=== PATIENT | male | born 1970 | race Caucasian/White ===

== ENCOUNTER 2016-09-18 14:08 | Emergency (ER) | payer OTHER ==
[2016-09-18 14:15] VITALS: BP 144/84
[2016-09-18 16:48] LABS: Hematocrit 46 % (42-52); Hemoglobin 15.4 g/dl (14.0-18.0); Mean Corpuscular HGB Conc 34 g/dl (31-36); Mean Corpuscular Hemoglobin 31 pg (27-31); Mean Corpuscular Volume 92 fL (80-94); Mean Platelet Volume 7 um3 (7.4-10.4); Red Blood Count 4.98 10^6/ul (4.0-5.4); Red Cell Distribution Width 14 % (10.5-15); White Blood Count 8.8 10^3/ul (3.5-10.8)
[2016-09-18 17:04] LABS: BUN/Creatinine Ratio 11.9 (8-20); Blood Urea Nitrogen 12 mg/dL (6-24); C Reactive Protein 15.58 mg/L (< 5.00); CO2 Carbon Dioxide 26 mmol/L (22-32); Calcium 10.7 mg/dL (8.6-10.3); Chloride 103 mmol/L (101-111); EGFR African American 102.7 (>60); EGFR Non-African American 79.9 (>60); Glucose 86 mg/dL (70-100); Sodium 135 mmol/L (133-145)
--- NOTE | 2016-09-18 17:57 | ED ---
ED Suture/Wound Check - HPI Summary HPI Summary: 46 y/o male comes to the ED with complaints of drainage from a prior wound after a brain biopsy that has been going on for the past week and a half. Patient brought in past few days worth of gauze pads he has been using to cover the wound. It is a dime size amount with today's being even smaller amount. It is clear with a greenish/yellow tint to it, not copious. Denies any blood. Is worried it is CSF. He states the brain biopsy was in May of 2016 and he did not have any complications with it until now. Denies any other complaints at this time, no fever/chills. He has metastatic lung cancer that spread to his brain. Has an appointment with neurosurgeon in the next month. He called their office and they told him to come to ED to make sure it did not have to be re- sutured. - History Of Current Complaint Chief Complaint: EDHeadInjury Stated Complaint: HEAD PAIN Time Seen by Provider: 09/18/16 15:19 Hx Obtained From: Patient Onset/Duration: Sudden Onset Severity: Mild Pain Intensity: 0 Pain Scale Used: 0-10 Numeric - Allergies/Home Medications Allergies/Adverse Reactions: Allergies Allergy/AdvReac Type Severity Reaction Status Date / Time Penicillins Allergy STRONG Verified 07/15/16 14:11 FAMILY HX OF REACTIONS TO PCN PMH/Surg Hx/FS Hx/Imm Hx Endocrine/Hematology History: Denies: Hx Diabetes, Hx Systemic Lupus Erythematosus Cardiovascular History: Denies: Hx Hypertension, Hx Pacemaker/ICD History: Denies: Hx Dialysis, Hx Renal Disease Musculoskeletal History: Denies: Hx Rheumatoid Arthritis Sensory History: Denies: Hx Hearing Aid Psychiatric History: Denies: Hx Panic Disorder - Cancer History Cancer Type, Location and Year: Metastatic lung CA Hx Chemotherapy: No - Surgical History Surgery Procedure, Year, and Place: ARM/THIGH SKIN BIOPSY 2016. Brain Biopsy Infectious Disease History: No Infectious Disease History: Denies: Traveled Outside the [place] in Last 30 Days - Social History Alcohol Use: None Substance Use Type: Reports: None Smoking Status (MU): Never Smoked Tobacco Review of Systems Constitutional: Negative Eyes: Negative ENT: Negative Cardiovascular: Negative Respiratory: Negative Gastrointestinal: Negative Genitourinary: Negative Musculoskeletal: Negative Positive: Other - drainage from old wound Neurological: Negative Psychological: Normal All Other Systems Reviewed And Are Negative: Yes Physical Exam Vital Signs On Initial Exam: Initial Vitals Temp Pulse Resp BP Pulse Ox 98.2 F 56 18 144/84 100 09/18/16 14:11 09/18/16 14:11 09/18/16 14:11 09/18/16 14:11 09/18/16 14:11 Diagnostics - Vital Signs Vital Signs Temp Pulse Resp BP Pulse Ox 09/18/16 14:11 98.2 F 56 18 144/84 100 - Laboratory Lab Results: Lab Results 09/18/16 09/18/16 Range/Units 16:35 16:35 WBC 8.8 (3.5-10.8) 10^3/ul RBC 4.98 (4.0-5.4) 10^6/ul Hgb 15.4 (14.0-18.0) g/dl Hct 46 (42-52) % MCV 92 (80-94) fL MCH 31 (27-31) pg MCHC 34 (31-36) g/dl RDW 14 (10.5-15) % Plt Count 202 (150-450) 10^3/ul MPV 7 L (7.4-10.4) um3 ESR Pending Sodium 135 (133-145) mmol/L Potassium TNP Chloride 103 (101-111) mmol/L Carbon Dioxide 26 (22-32) mmol/L Anion Gap TNP BUN 12 (6-24) mg/dL Creatinine 1.01 (0.67-1.17) mg/dL Est GFR ( Amer) 102.7 (>60) Est GFR (Non-Af Amer) 79.9 (>60) BUN/Creatinine Ratio 11.9 (8-20) Glucose 86 (70-100) mg/dL Calcium 10.7 H (8.6-10.3) mg/dL C-Reactive Protein 15.58 H (< 5.00) mg/L Result Diagrams: 09/18/16 16:35 09/18/16 16:35 Lab Statement: Any lab studies that have been ordered have been reviewed, and results considered in the medical decision making process. Course/Dx - Course Course Of Treatment: scar was well-approximated, healed nicely and no signs of dehiscence. No signs of infection and not actively draining. a small needle- sized opening was visualized- appears drainage may be coming from there. However due to biopsy being in May and nothing to be sutured at this time patient will be instructed to follow up with his neurosurgeon if symptoms persist. told to continue using neosporin and covering the area as needed with gauze. also due to otitis externa bilaterally will be treated for that. states he has otitis externa and media often. - Differential Diagnoses Differential Diagnoses: Dehiscence, Healing Wound - Clinical Impression Provider Diagnoses: Encounter for post surgical wound check, Wound drainage, Healing wound, Otitis externa of both ears - Physician Notifications Discussed Care Of Patient With: Dr Lanier Discharge - Discharge Plan Condition: Stable Disposition: HOME Prescriptions: Neomyc/Polym/HC 1% OTIC SUSP* [Cortisporin Otic Susp 1%*] 4 drop BOTH EARS QID # 1 btl Patient Education Materials: Wound Dehiscence (ED), Otitis Externa (ED) Referrals: Boaz Pruitt MD [Primary Care Provider] - Additional Instructions: Continue using Neosporin and Gauze pads on the area as symptoms persist. Follow- up with your neurosurgeon to further be evaluated. Use prescribed ear drops in both ears for the next 7 days. If symptoms worsen and drainage increases or wound appears to be , headaches, ear pain, fluid coming out of your ears, changes in vision please seek medical attention promptly.
[2016-09-18 19:21] LABS: Erythrocyte Sed Rate 35 mm/Hr (0-14)
== END 2016-09-18 18:30 | disposition home or self-care (01) ==
LOC: ED 14:08
DX: H60.93 Unspecified otitis externa, bilateral (principal); T14.8 Other injury of unspecified body region; X58.XXXA Exposure to other specified factors, initial encounter; Y93.9 Activity, unspecified; Y92.9 Unspecified place or not applicable; Y99.9 Unspecified external cause status
CPT/HCPCS: 36415; 80048; 85027; 85652; 86140; 99282

== ENCOUNTER 2018-04-26 15:44 | Emergency (ER) | payer OTHER ==
[2018-04-26 20:42] LABS: ABS Basophils 0.1 10^3/ul (0-0.2); ABS Eosinophils 0.3 10^3/ul (0-0.6); ABS Lymphocytes 1.7 10^3/ul (1.0-4.8); ABS Monocytes 0.6 10^3/ul (0-0.8); ABS Nucleated RBC 0 10^3/ul; Eosinophil % 2.8 % (0-6); Hematocrit 38 % (42-52); Hemoglobin 12.8 g/dl (14.0-18.0); Lymphocyte % 17.4 % (25-47); Mean Corpuscular HGB Conc 34 g/dl (31-36); Mean Corpuscular Hemoglobin 32 pg (27-31); Mean Corpuscular Volume 93 fL (80-94); Mean Platelet Volume 6.2 um3 (7.4-10.4); Nucleated Red Blood Cells % 0.1; Platelet Count 164 10^3/ul (150-450); Red Blood Count 4.07 10^6/ul (4.00-5.40); Red Cell Distribution Width 16 % (10.5-15); White Blood Count 9.7 10^3/ul (3.5-10.8)
[2018-04-26 21:03] LABS: EGFR Non-African American 102.1 (>60)
[2018-04-26] MEDS ORDERED: Iohexol 300* (CONTRAST) 10 ML SDV IV ONE (21:14)
--- NOTE | 2018-04-26 23:23 | RAD ---
EXAM: CT Neck With Intravenous Contrast CLINICAL HISTORY: 48 years old, male; Signs and symptoms; Dysphagia / difficulty swallowing; Additional info: Dysphagia, HX met lung ca non compliant with chemo TECHNIQUE: Axial computed tomography images of the neck with intravenous contrast. All CT scans at this facility use at least one of these dose optimization techniques: automated exposure control; mA and/or kV adjustment per patient size (includes targeted exams where dose is matched to clinical indication); or iterative reconstruction. Coronal and sagittal reformatted images were created and reviewed. CONTRAST: 50 mL of OMNIPAQUE 300 administered intravenously. COMPARISON: NECK W CT SOFT TISSUE NECK W 11/22/2017 12:46 PM FINDINGS: Oropharynx: Unremarkable. No significant tonsillar enlargement. No peritonsillar abscess. Hypopharynx: Unremarkable. Larynx: Unremarkable. Normal epiglottis. Trachea: Unremarkable. Retropharyngeal space: Unremarkable. Submandibular/parotid glands: Unremarkable. Glands are normal in size. Thyroid: Unremarkable. No enlarged or calcified nodules. Bones/joints: No acute fracture. Soft tissues: Unremarkable. Vasculature: No acute findings. Lymph nodes: Unremarkable. No lymphadenopathy. Esophagus: There is mild wall thickening of the mid esophagus. Lung apices: Unremarkable as visualized. IMPRESSION: Mild mid esophageal wall thickening. Etiology can be infectious/inflammatory/post chemotherapy changes.
--- NOTE | 2018-04-27 00:14 | ED ---
Throat Pain/Nasal Congestion - HPI Summary HPI Summary: Patient with history of lung cancer with metastases to brain complains of trouble swallowing 4 months. Patient feels there are "flesh tubes" running around his neck, and that food spills out of his mouth at night. Patient also states he stopped his chemotherapy treatments for months ago in order to go to [facility], and ran out of his usual meds 1 week ago. Patient states he does not have number of his doctors in order to refill meds. Denies any other pain or symptoms including fever, cough, CP, SOB, N/V/D, abdominal pain, change in urine, change in BM. Recent chest abdomen and pelvis CT and brain MRI showed cancer to be stable. Patient has oncologist, psychiatrist and primary care. - History of Current Complaint Chief Complaint: EDThroatPain Time Seen by Provider: 04/26/18 20:00 Hx Obtained From: Patient, Family/Guest Request Runner Onset/Duration: Gradual Onset, Lasting Weeks Severity: Mild Associated Signs And Symptoms: Positive: Dysphagia Cough: None - Allergies/Home Medications Allergies/Adverse Reactions: Allergies Allergy/AdvReac Type Severity Reaction Status Date / Time No Known Allergies Allergy Verified 04/26/18 20:10 PMH/Surg Hx/FS Hx/Imm Hx Endocrine/Hematology History: Denies: Hx Diabetes, Hx Systemic Lupus Erythematosus Cardiovascular History: Reports: Hx Hypertension Denies: Hx Pacemaker/ICD History: Denies: Hx Dialysis, Hx Renal Disease Musculoskeletal History: Denies: Hx Rheumatoid Arthritis Sensory History: Denies: Hx Hearing Aid Psychiatric History: Reports: Hx Panic Disorder - AGORAPHOBIA - Cancer History Cancer Type, Location and Year: Metastatic lung CA Hx Chemotherapy: Yes Hx Radiation Therapy: Yes Hx Palliative Cancer Treatment: No - Surgical History Surgery Procedure, Year, and Place: ARM/THIGH SKIN BIOPSY 2016. Brain Biopsy . THROAT BIOPSY Infectious Disease History: No Infectious Disease History: Denies: Traveled Outside the [place] in Last 30 Days - Social History Alcohol Use: Rare Substance Use Type: Reports: None Smoking Status (MU): Current Some Day Smoker Review of Systems Constitutional: Negative Eyes: Negative Positive: Sore Throat Cardiovascular: Negative Respiratory: Negative Gastrointestinal: Negative Genitourinary: Negative Musculoskeletal: Negative Skin: Negative Neurological: Negative Psychological: Normal All Other Systems Reviewed And Are Negative: Yes Physical Exam - Summary Physical Exam Summary: Patient speaking in full sentences, no work of breathing. Oropharyngeal exam normal. Patient refers to flush tubes around his neck that he feels are visible , but are not visible to this provider. Lung sounds clear to auscultation bilaterally. Patient tolerating saliva. Triage Information Reviewed: Yes Vital Signs On Initial Exam: Initial Vitals Temp Pulse Resp BP Pulse Ox 97 F 69 17 112/44 98 04/26/18 16:17 04/26/18 16:17 04/26/18 16:17 04/26/18 16:17 04/26/18 16:17 Vital Signs Reviewed: Yes Appearance: Positive: Well-Appearing Skin: Positive: Warm Head/Face: Positive: Normal Head/Face Inspection Eyes: Positive: Normal ENT: Positive: Normal ENT inspection Neck: Positive: Supple Respiratory/Lung Sounds: Positive: Clear to Auscultation Cardiovascular: Positive: Normal Abdomen Description: Positive: Nontender Musculoskeletal: Positive: Normal Neurological: Positive: Normal Psychiatric: Positive: Normal AVPU Assessment: Alert - Sami Coma Scale Best Eye Response: 4 - Spontaneous Best Motor Response: 6 - Obeys Commands Best Verbal Response: 5 - Oriented Coma Scale Total: 15 Diagnostics - Vital Signs Vital Signs Temp Pulse Resp BP Pulse Ox 04/26/18 19:14 97.7 F 60 22 107/95 99 04/26/18 16:17 97 F 69 17 112/44 98 - Laboratory Lab Results: Lab Results 04/26/18 04/26/18 04/26/18 Range/Units 20:33 20:33 20:33 WBC 9.7 (3.5-10.8) 10^3/ul RBC 4.07 (4.00-5.40) 10^6/ul Hgb 12.8 L (14.0-18.0) g/dl Hct 38 L (42-52) % MCV 93 (80-94) fL MCH 32 H (27-31) pg MCHC 34 (31-36) g/dl RDW 16 H (10.5-15) % Plt Count 164 (150-450) 10^3/ul MPV 6.2 L (7.4-10.4) um3 Neut % (Auto) 72.5 (38-83) % Lymph % (Auto) 17.4 L (25-47) % [place] % (Auto) 6.3 (0-7) % Eos % (Auto) 2.8 (0-6) % Baso % (Auto) 1.0 (0-2) % Absolute Neuts (auto) 7.0 (1.5-7.7) 10^3/ul Absolute Lymphs (auto) 1.7 (1.0-4.8) 10^3/ul Absolute Monos (auto) 0.6 (0-0.8) 10^3/ul Absolute Eos (auto) 0.3 (0-0.6) 10^3/ul Absolute Basos (auto) 0.1 (0-0.2) 10^3/ul Absolute Nucleated RBC 0 10^3/ul Nucleated RBC % 0.1 Sodium 136 (135-145) mmol/L Potassium 4.6 (3.5-5.0) mmol/L Chloride 101 (101-111) mmol/L Carbon Dioxide 28 (22-32) mmol/L Anion Gap 7 (2-11) mmol/L BUN 10 (6-24) mg/dL Creatinine 0.81 (0.67-1.17) mg/dL Est GFR ( Amer) 123.6 (>60) Est GFR (Non-Af Amer) 102.1 (>60) BUN/Creatinine Ratio 12.3 (8-20) Glucose 90 (70-100) mg/dL Lactic Acid 2.0 (0.5-2.0) mmol/L Calcium 9.4 (8.6-10.3) mg/dL Total Bilirubin 0.50 (0.2-1.0) mg/dL AST 19 (13-39) U/L ALT 32 (7-52) U/L Alkaline Phosphatase 53 (34-104) U/L C-Reactive Protein 77.79 H (<8.01) mg/L Total Protein 6.5 (6.4-8.9) g/dL Albumin 3.7 (3.2-5.2) g/dL Globulin 2.8 (2-4) g/dL Albumin/Globulin Ratio 1.3 (1-3) Result Diagrams: 04/26/18 20:33 04/26/18 20:33 Lab Statement: Any lab studies that have been ordered have been reviewed, and results considered in the medical decision making process. - CT neck soft tissue CT Interpretation: No Acute Changes CT Interpretation Completed By: Radiologist NANDA Course/Dx - Course Course Of Treatment: Patient with history of lung cancer with metastases to brain complains of trouble swallowing 4 months. Patient feels there are "flesh tubes" running around his neck, and that food spills out of his mouth at night. Patient also states he stopped his chemotherapy treatments for months ago in order to go to [facility], and ran out of his usual meds 1 week ago. Patient states he does not have number of his doctors in order to refill meds. Denies any other pain or symptoms including fever, cough, CP, SOB, N/V/D, abdominal pain, change in urine, change in BM. Recent chest abdomen and pelvis CT and brain MRI showed cancer to be stable. Patient has oncologist, psychiatrist and primary care. Physical exam:Patient speaking in full sentences, no work of breathing. Oropharyngeal exam normal. Patient refers to flush tubes around his neck that he feels are visible, but are not visible to this provider. Lung sounds clear to auscultation bilaterally. Patient tolerating saliva. Vital signs within normal limits. CT soft tissue neck negative for abnormalities. Patient advised of results refused to believe him. Social work consult ordered to evaluate patient's living conditions as he lives alone. - Diagnoses Provider Diagnoses: Esophageal abnormality Discharge - Sign-Out/Discharge Documenting (check all that apply): Patient Departure - Discharge Plan Condition: Stable Disposition: HOME Patient Education Materials: Dysphagia (ED) Referrals: Boaz Pruitt MD [Primary Care Provider] - Additional Instructions: Follow-up with primary care. Return to the ED for any new or worsening symptoms - Billing Disposition and Condition Condition: STABLE Disposition: Home
[2018-04-27 00:31] VITALS: BP 103/67
== END 2018-04-27 00:30 | disposition home or self-care (01) ==
LOC: ED 15:44
DX: J02.9 Acute pharyngitis, unspecified (principal); C34.90 Malignant neoplasm of unspecified part of unspecified bronchus or lung; C79.31 Secondary malignant neoplasm of brain; Z72.0 Tobacco use; Z92.21 Personal history of antineoplastic chemotherapy
CPT/HCPCS: 36415; 70491; 80053; 83605; 85025; 86140; 99283; Q9967

== ENCOUNTER → 2018-07-29 13:16 | Emergency (ER) | payer OTHER ==
[2018-07-29 13:46] LABS: ABS Basophils 0.1 10^3/ul (0-0.2); ABS Eosinophils 0.3 10^3/ul (0-0.6); ABS Lymphocytes 1.5 10^3/ul (1.0-4.8); ABS Monocytes 0.4 10^3/ul (0-0.8); ABS Neutrophils 5.7 10^3/ul (1.5-7.7); ABS Nucleated RBC 0 10^3/ul; Eosinophil % 3.5 %; Hematocrit 40 % (42-52); Hemoglobin 13.4 g/dl (14.0-18.0); Lymphocyte % 19.1 %; Mean Corpuscular HGB Conc 33 g/dl (31-36); Mean Corpuscular Hemoglobin 29 pg (27-31); Mean Corpuscular Volume 86 fL (80-94); Mean Platelet Volume 6.5 fL (7.4-10.4); Nucleated Red Blood Cells % 0; Platelet Count 217 10^3/ul (150-450); Red Blood Count 4.69 10^6/ul (4.00-5.40); Red Cell Distribution Width 15 % (10.5-15); White Blood Count 7.9 10^3/ul (3.5-10.8)
[2018-07-29 14:07] LABS: Albumin 3.8 g/dL (3.2-5.2); Albumin/Globulin Ratio 1.2 (1-3); BUN/Creatinine Ratio 13.6 (8-20); C Reactive Protein 17.96 mg/L (<8.01); Calcium 9.7 mg/dL (8.6-10.3); EGFR Non-African American 92.8 (>60); Globulin 3.2 g/dL (2-4); Potassium 4.8 mmol/L (3.5-5.0); Total Bilirubin 0.3 mg/dL (0.2-1.0)
[2018-07-29 16:38] VITALS: BP 110/60
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
== END | disposition home or self-care (01) ==
LOC: ED 13:16
DX: F43.0 Acute stress reaction (principal); Z72.0 Tobacco use
CPT/HCPCS: 36415; 80053; 83735; 85025; 86140; 99284

== ENCOUNTER 2018-08-02 10:02 | Emergency (ER) | payer OTHER ==
[2018-08-02 11:34] LABS: ABS Basophils 0.1 10^3/ul (0-0.2); ABS Eosinophils 0.1 10^3/ul (0-0.6); ABS Monocytes 0.4 10^3/ul (0-0.8); ABS Neutrophils 6.4 10^3/ul (1.5-7.7); ABS Nucleated RBC 0 10^3/ul; Eosinophil % 1.4 %; Hematocrit 41 % (42-52); Hemoglobin 13.4 g/dl (14.0-18.0); Lymphocyte % 12.8 %; Mean Corpuscular HGB Conc 33 g/dl (31-36); Mean Corpuscular Hemoglobin 28 pg (27-31); Mean Corpuscular Volume 85 fL (80-94); Mean Platelet Volume 6.5 fL (7.4-10.4); Nucleated Red Blood Cells % 0.1; Platelet Count 264 10^3/ul (150-450); Red Blood Count 4.75 10^6/ul (4.00-5.40); Red Cell Distribution Width 15 % (10.5-15)
[2018-08-02 11:50] LABS: Albumin/Globulin Ratio 1.1 (1-3); BUN/Creatinine Ratio 21.6 (8-20); Calcium 9.8 mg/dL (8.6-10.3); EGFR Non-African American 92.8 (>60); Globulin 3.5 g/dL (2-4); Potassium 4.2 mmol/L (3.5-5.0); Total Bilirubin 0.5 mg/dL (0.2-1.0); Total Protein 7.5 g/dL (6.4-8.9)
[2018-08-02] MEDS ORDERED: Iohexol 300* (CONTRAST) 10 ML SDV IV ONE (12:01)
[2018-08-02] MEDS ORDERED: Ibuprofen TAB* 600 MG PO ONE (12:46)
--- NOTE | 2018-08-02 12:54 | ED ---
Throat Pain/Nasal Congestion - HPI Summary HPI Summary: Patient is a 48-year-old male with a history of brain CA presenting to the ED for the second time in one week. He offers a different complaint on this visit. Today he states he has had a one-day history of difficulty swallowing, difficulty handling his secretions, and dysphagia. He states he may have a malignancy or metastases to the neck and is concerned for these masses. Denies any other symptoms or concerns at this time. Denies any fevers, sweats, chills. Denies any masses otherwise. He denies any sore throat. - History of Current Complaint Chief Complaint: EDThroatPain Time Seen by Provider: 08/02/18 10:38 Hx Obtained From: Patient Onset/Duration: Sudden Onset Severity: Moderate Associated Signs And Symptoms: Positive: Negative, Dysphagia - Epiglottits Risk Factors Epiglottis Risk Factors: Negative - Allergies/Home Medications Allergies/Adverse Reactions: Allergies Allergy/AdvReac Type Severity Reaction Status Date / Time No Known Allergies Allergy Verified 08/02/18 11:31 Home Medications: Home Medications Levothyroxine TAB* [Synthroid TAB*] 125 mcg PO DAILY 08/02/18 [History Confirmed 08/02/18] PMH/Surg Hx/FS Hx/Imm Hx Previously Healthy: Yes Endocrine/Hematology History: Denies: Hx Diabetes, Hx Systemic Lupus Erythematosus Cardiovascular History: Reports: Hx Hypertension Denies: Hx Pacemaker/ICD History: Denies: Hx Dialysis, Hx Renal Disease Musculoskeletal History: Denies: Hx Rheumatoid Arthritis Sensory History: Denies: Hx Hearing Aid Psychiatric History: Denies: Hx Panic Disorder - Cancer History Cancer Type, Location and Year: Metastatic lung CA Hx Chemotherapy: Yes Hx Radiation Therapy: Yes Hx Palliative Cancer Treatment: No - Surgical History Surgery Procedure, Year, and Place: ARM/THIGH SKIN BIOPSY 2016. Brain Biopsy . THROAT BIOPSY Infectious Disease History: No Infectious Disease History: Denies: Traveled Outside the [place] in Last 30 Days - Social History Occupation: Unemployed Lives: Alone Alcohol Use: Rare Hx Substance Use: No Substance Use Type: Reports: None Hx Tobacco Use: Yes Smoking Status (MU): Current Some Day Smoker Review of Systems Constitutional: Negative Negative: Fever, Chills, Fatigue, Skin Diaphoresis Positive: Other - Oneck pain bilaterally. Negative: Epistaxis, Dental Pain, Sore Throat Negative: Palpitations, Chest Pain Negative: Shortness Of Breath, Cough Negative: Abdominal Pain, Vomiting, Diarrhea, Nausea Positive: see HPI Musculoskeletal: Negative Skin: Negative All Other Systems Reviewed And Are Negative: Yes Physical Exam Triage Information Reviewed: Yes Vital Signs On Initial Exam: Initial Vitals Temp Pulse Resp BP Pulse Ox 97.8 F 59 18 119/71 100 08/02/18 10:11 08/02/18 10:11 08/02/18 10:11 08/02/18 10:11 08/02/18 10:11 Vital Signs Reviewed: Yes Appearance: Positive: Well-Appearing, Well-Nourished Skin: Positive: Warm, Skin Color Reflects Adequate Perfusion Head/Face: Positive: Normal Head/Face Inspection Eyes: Positive: EOMI, SARWAT, Conjunctiva Clear Dental: Positive: Other - no appreciable masses Respiratory/Lung Sounds: Positive: Clear to Auscultation, Breath Sounds Present Cardiovascular: Positive: RRR, Pulses are Symmetrical in both Upper and Lower Extremities Musculoskeletal: Positive: Normal, Strength/ROM Intact Neurological: Positive: Sensory/Motor Intact, Alert, Oriented to Person Place, Time, Speech Normal Psychiatric: Positive: Normal, Affect/Mood Appropriate Diagnostics - Vital Signs Vital Signs Temp Pulse Resp BP Pulse Ox 08/02/18 10:11 97.8 F 59 18 119/71 100 - Laboratory Lab Results: Lab Results 08/02/18 08/02/18 08/02/18 Range/Units 11:24 11:24 11:24 WBC 8.0 (3.5-10.8) 10^3/ul RBC 4.75 (4.00-5.40) 10^6/ul Hgb 13.4 L (14.0-18.0) g/dl Hct 41 L (42-52) % MCV 85 (80-94) fL MCH 28 (27-31) pg MCHC 33 (31-36) g/dl RDW 15 (10.5-15) % Plt Count 264 (150-450) 10^3/ul MPV 6.5 L (7.4-10.4) fL Neut % (Auto) 80.6 % Lymph % (Auto) 12.8 % [facility] % (Auto) 4.4 % Eos % (Auto) 1.4 % Baso % (Auto) 0.8 % Absolute Neuts (auto) 6.4 (1.5-7.7) 10^3/ul Absolute Lymphs (auto) 1.0 (1.0-4.8) 10^3/ul Absolute Monos (auto) 0.4 (0-0.8) 10^3/ul Absolute Eos (auto) 0.1 (0-0.6) 10^3/ul Absolute Basos (auto) 0.1 (0-0.2) 10^3/ul Absolute Nucleated RBC 0 10^3/ul Nucleated RBC % 0.1 Sodium 135 (135-145) mmol/L Potassium 4.2 (3.5-5.0) mmol/L Chloride 100 L (101-111) mmol/L Carbon Dioxide 22 (22-32) mmol/L Anion Gap 13 H (2-11) mmol/L BUN 19 (6-24) mg/dL Creatinine 0.88 (0.67-1.17) mg/dL Est GFR ( Amer) 112.3 (>60) Est GFR (Non-Af Amer) 92.8 (>60) BUN/Creatinine Ratio 21.6 H (8-20) Glucose 61 L (70-100) mg/dL Lactic Acid 1.2 (0.5-2.0) mmol/L Calcium 9.8 (8.6-10.3) mg/dL Total Bilirubin 0.50 (0.2-1.0) mg/dL AST 24 (13-39) U/L ALT 23 (7-52) U/L Alkaline Phosphatase 78 (34-104) U/L Total Protein 7.5 (6.4-8.9) g/dL Albumin 4.0 (3.2-5.2) g/dL Globulin 3.5 (2-4) g/dL Albumin/Globulin Ratio 1.1 (1-3) Result Diagrams: 08/02/18 11:24 08/02/18 11:24 Lab Statement: Any lab studies that have been ordered have been reviewed, and results considered in the medical decision making process. EENT Course/Dx - Course Course Of Treatment: Labs obtained which are unremarkable. CT shows mild mucosal thickening of the esophagus. There is no lymphadenopathy by size criteria. There is no appreciable obstructing mass. On physical examination, she appears to be in no acute distress. Handling secretions well. And is able to drink water.Discussed results with patient. I for ibuprofen to which he accepts. He will follow up with his PCP. - Diagnoses Provider Diagnoses: Tightness of neck Discharge - Sign-Out/Discharge Documenting (check all that apply): Patient Departure - Discharge Plan Condition: Stable Disposition: HOME Referrals: Boaz Pruitt MD [Primary Care Provider] - Additional Instructions: Please follow up ENT as scheduled - Billing Disposition and Condition Condition: STABLE Disposition: Home
[2018-08-02 12:58] VITALS: BP 115/74
== END 2018-08-02 12:55 | disposition home or self-care (01) ==
LOC: ED 10:02
DX: M54.2 Cervicalgia (principal); Z72.0 Tobacco use; Z85.118 Personal history of other malignant neoplasm of bronchus and lung
CPT/HCPCS: 36415; 70491; 80053; 83605; 85025; 99282; A9270-GY; Q9967

== ENCOUNTER 2018-08-04 12:02 | Inpatient (IN) | payer OTHER ==
[2018-08-04] MEDS ORDERED: Nicotine Inhaler* 10 MG AMP INH PRN (12:18)
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
[2018-08-04] MEDS ORDERED: Mouth Piece, Nicotine* 1 EACH CARTRIDGE INH PRN (12:51)
[2018-08-04 12:52] LABS: ABS Basophils 0.1 10^3/ul (0-0.2); ABS Eosinophils 0.3 10^3/ul (0-0.6); ABS Lymphocytes 1.4 10^3/ul (1.0-4.8); ABS Monocytes 0.4 10^3/ul (0-0.8); ABS Neutrophils 5.2 10^3/ul (1.5-7.7); ABS Nucleated RBC 0 10^3/ul; Eosinophil % 3.7 %; Hematocrit 42 % (42-52); Lymphocyte % 19.3 %; Mean Corpuscular HGB Conc 33 g/dl (31-36); Mean Corpuscular Hemoglobin 29 pg (27-31); Mean Corpuscular Volume 85 fL (80-94); Mean Platelet Volume 6.6 fL (7.4-10.4); Nucleated Red Blood Cells % 0; Platelet Count 283 10^3/ul (150-450); Red Cell Distribution Width 15 % (10.5-15); White Blood Count 7.4 10^3/ul (3.5-10.8)
[2018-08-04 13:10] LABS: ALT 25 U/L (7-52); AST 25 U/L (13-39); Albumin 4.4 g/dL (3.2-5.2); Albumin/Globulin Ratio 1.3 (1-3); Alkaline Phosphatase 72 U/L (34-104); Anion Gap 8 mmol/L (2-11); BUN/Creatinine Ratio 17.8 (8-20); Blood Urea Nitrogen 16 mg/dL (6-24); CO2 Carbon Dioxide 28 mmol/L (22-32); Chloride 103 mmol/L (101-111); EGFR African American 109.4 (>60); EGFR Non-African American 90.4 (>60); Globulin 3.4 g/dL (2-4); Glucose 64 mg/dL (70-100); Potassium 3.6 mmol/L (3.5-5.0); Sodium 139 mmol/L (135-145); Total Protein 7.8 g/dL (6.4-8.9)
[2018-08-04 13:20] LABS: Acetaminophen < 15 mcg/mL; Alcohol < 10 mg/dL (<10); Salicylate < 2.50 mg/dL (<30)
[2018-08-04 13:25] LABS: TSH (Thyroid Stimulating Horm) 9.22 mcIU/mL (0.34-5.60)
[2018-08-04 14:38] LABS: Urine Appearance Cloudy; Urine Bilirubin Negative (Negative); Urine Blood Negative (Negative); Urine Color Amber; Urine Glucose Negative (Negative); Urine Ketones 1+ (Negative); Urine Nitrite Negative (Negative); Urine Protein Negative (Negative); Urine Specific Gravity 1.026 (1.010-1.030); Urine Urobilinogen Positive (Negative)
[2018-08-04 15:07] LABS: Barbiturates Urine Screen None Detected (None Detect); Benzodiazepine Urine Screen Presumptive Positive (None Detect); Urine Cannabinoids Screen None Detected (None Detect)
[2018-08-04 16:12] LABS: Free T4 0.55 ng/dL (0.61-1.12)
[2018-08-04] MEDS ORDERED: Acetaminophen TAB* 325 MG PO PRN (16:47)
[2018-08-04] MEDS ORDERED: Al Hydrox/Mg Hydrox/Simet LIQ* 30 ML UDC PO PRN (16:48)
[2018-08-04] MEDS: clonazePAM TAB(*) 1 MG PO SCH (21:27)
[2018-08-04] MEDS: Sertraline* 100 MG TAB PO SCH (21:28)
[2018-08-05] MEDS: Levothyroxine TAB* 125 MCG TAB PO SCH (07:38)
[2018-08-05] MEDS: Sertraline* 100 MG TAB PO SCH ×2 (10:16→22:06)
[2018-08-05] MEDS: Multivitamins/Minerals TAB PO SCH (10:18)
[2018-08-05] MEDS: clonazePAM TAB(*) 1 MG PO SCH ×3 (10:18→22:05)
[2018-08-05] MEDS: Nicotine PATCH 21 MG/24 HR* PATCH TRANSDERM SCH (15:16)
--- NOTE | 2018-08-05 19:26 | HP ---
HISTORY AND PHYSICAL: ADDENDUM: DIAGNOSES: 1. Psychosis, rule out psychosis related to general medical problem. 2. History of agoraphobia. ASSESSMENT: Rick is a 48-year-old white male who presented to ED via [facility] crisis team due to aggressive behavior at the homeless [facility]. Collateral information indicates that he has been increasingly delusional and aggressive to family members and this is not his usual presentation. He was diagnosed with lung cancer with mets to the brain. He states he finished chemo and radiation and is in remission but this is yet to be verified. PLAN: The patient is admitted to adult behavioral services unit on involuntary status. His code status is full. He is placed on 15-minute checks for safety. We obtained a Swallow consult and a Nutrition consult due to his need for a pureed diet. We will continue outpatient medications and add olanzapine at bedtime. We will coordinate with his oncologist and identify treatment plan and status of cancer. The patient is encouraged to participate in unit programming, individual sessions with staff and psychoeducational groups. Discharge planning will include outpatient providers and family per the patient' s consent. ANIVAL VARGAS NP [id number]/CPS #: [id number] BARB
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
[2018-08-05] MEDS: OLANzapine TAB* 5 MG PO SCH (22:06)
[2018-08-05] MEDS: Nicotine Patch Removal NOTE FOLLOW UP SCH (22:16)
[2018-08-06] MEDS: clonazePAM TAB(*) 1 MG PO SCH ×3 (10:10→20:23)
[2018-08-06] MEDS: Multivitamins/Minerals TAB PO SCH (10:11)
[2018-08-06] MEDS: Levothyroxine TAB* 125 MCG TAB PO SCH (10:11)
[2018-08-06] MEDS: Sertraline* 100 MG TAB PO SCH ×2 (10:11→20:23)
[2018-08-06] MEDS: Nicotine PATCH 21 MG/24 HR* PATCH TRANSDERM SCH (10:12)
[2018-08-06] MEDS: OLANzapine TAB* 5 MG PO SCH (20:23)
[2018-08-06] MEDS: Nicotine Patch Removal NOTE FOLLOW UP SCH (20:25)
[2018-08-07] MEDS: clonazePAM TAB(*) 1 MG PO SCH ×3 (07:00→20:46)
[2018-08-07] MEDS: Levothyroxine TAB* 125 MCG TAB PO SCH (07:00)
[2018-08-07] MEDS: Multivitamins/Minerals TAB PO SCH (07:00)
[2018-08-07] MEDS: Sertraline* 100 MG TAB PO SCH ×2 (07:00→20:47)
[2018-08-07] MEDS: Nicotine PATCH 21 MG/24 HR* PATCH TRANSDERM SCH (07:53)
--- NOTE | 2018-08-07 16:42 | PN ---
Subjective - Subjective Date of Service: 08/07/18 Service Type: 64501 Hosp care 15 min low complexity Subjective: Viry remains to self mostly either laying in bed or sitting. He verbalizes complaints about people misunderstanding him resulting in this hospitalization. He doesn't believe he needs psychotropic meds although he has been compliant. Denies SI/HI or psychosis. Objective - Appearance Appearance: Healthy Appearing Dysmorphic Features: No Hygiene: Normal Grooming: Fairly Well Kept - Behavior Psychomotor Activities: Normal Exhibits Abnormal Movement: No - Attitude and Relatedness Attitude and Relatedness: Cooperative Eye Contact: Poor - Speech Quality: Unpressured Latencies: Normal Quantity: Appropriate - Mood Patient's Decription of Mood: "Upset" - Affect Observed Affect: Constricted Affect Consistent with: Dysphoria - Thought Process Patient's Thought Process: Coherent, Goal Directed Thought Content: No Passive Wish, No Suicidal Planning, No Homicidal Ideation, No Paranoid Ideation - Sensorium Experiencing Hallucinations: No, Sensorium is Clear Type of Hallucinations: Visual: No, Auditory: No, Command: No - Level of Consciousness Level of Consciousness: Alert Orientation: Yes Intact, Yes Orientated to Time, Yes Orientated to Place, Yes Orientated to Person - Impulse Control Impulse Control: Tenuous - Insight and Judgement Insight and Judgement: Poor - Group Participation Particating in Group Activities: No - Medication Management Medication Management Adherence: Yes Assessment - Assessment Merits Inpatient Hospitalization: For Immediate Safety, For Stabilization, For Ongoing Evaluation, For Discharge Planning Plan - Plan Treatment Plan: Name: VIRY FRAUSTO JR Birthdate: 1970 [id number] Continued Medication Management: Continue Outpt Medication Medications: Current Medications Acetaminophen (Tylenol Tab*) 650 mg PO Q4H PRN PRN Reason: PAIN; OR TEMP >101 Al Hydrox/Mg Hydrox/Simethicone (Maalox Plus*) 30 ml PO Q4H PRN PRN Reason: INDIGESTION Clonazepam (Klonopin Tab(*)) 1 mg PO TID [facility] Last Admin: 08/07/18 14:02 Dose: 1 mg Device (Nicotine Mouth Piece*) 1 each INH ONCE PRN PRN Reason: CRAVING Levothyroxine Sodium (Synthroid Tab*) 125 mcg PO DAILY@0600 [facility] Last Admin: 08/07/18 07:00 Dose: 125 mcg Multivitamins/Minerals (Theragran/Minerals Tab*) 1 tab PO DAILY [facility] Last Admin: 08/07/18 07:00 Dose: 1 tab Nicotine (Nicotine Inhaler*) 10 mg INH Q2H PRN PRN Reason: CRAVING Nicotine (Nicotine Patch 21 Mg/24 Hr*) 1 patch TRANSDERM DAILY [facility] Last Admin: 08/07/18 07:53 Dose: Not Given Olanzapine (Zyprexa Tab*) 5 mg PO BEDTIME [facility] Last Admin: 08/06/18 20:23 Dose: 5 mg Pharmacy Profile Note (Nicotine Patch Removal Note*) 1 note FOLLOW UP 2100 [facility] Last Admin: 08/06/18 20:25 Dose: Not Given Sertraline HCl (Zoloft*) 100 mg PO BID [facility] Last Admin: 08/07/18 07:00 Dose: 100 mg - Discharge Plan Discharge Plan: Outpatient Follow Up Outpatient Program: [facility]
[2018-08-07] MEDS: OLANzapine TAB* 5 MG PO SCH (20:47)
[2018-08-07] MEDS: Nicotine Patch Removal NOTE FOLLOW UP SCH (20:48)
[2018-08-08] MEDS: Sertraline* 100 MG TAB PO SCH ×2 (07:36→20:45)
[2018-08-08] MEDS: Multivitamins/Minerals TAB PO SCH (07:36)
[2018-08-08] MEDS: Levothyroxine TAB* 125 MCG TAB PO SCH (07:36)
[2018-08-08] MEDS: Nicotine PATCH 21 MG/24 HR* PATCH TRANSDERM SCH (07:37)
[2018-08-08] MEDS: clonazePAM TAB(*) 1 MG PO SCH ×3 (07:37→20:45)
--- NOTE | 2018-08-08 16:15 | PN ---
Subjective - Subjective Date of Service: 08/08/18 Service Type: 33817 Hosp care 25 min moderate complexity Subjective: Patient gave conventional underwriter verbal consent to speak with his oncologist, Dr Minor. Dr Minor reports patient has not been therapy for months and his scans have been stable, as recent as last month. Patient is euthymic upon approach. He reports "I got a lot of sleep, which I needed." He states his mood is "good" today but that he is bored. He continues to give erroneous facts about information from outpatient providers. For example, he states that his APS pillowcase folder has proposed that he goes back to an apartment on [address]. SW is looking into housing needs and clarifying his status at the homeless residential. Objective - Appearance Appearance: Thin Framed Dysmorphic Features: Yes Hygiene: Normal Grooming: Fairly Well Kept - Behavior Psychomotor Activities: Normal Exhibits Abnormal Movement: No - Attitude and Relatedness Attitude and Relatedness: Cooperative Eye Contact: Fair - Speech Quality: Unpressured Latencies: Normal Quantity: Appropriate - Mood Patient's Decription of Mood: "Good" - Affect Observed Affect: Unvariable Affect Consistent with: Dysphoria - Thought Process Patient's Thought Process: Coherent, Impoverished Thought Content: Yes Paranoid Ideation, No Passive Wish, No Suicidal Planning, No Homicidal Ideation - Sensorium Experiencing Hallucinations: No, Sensorium is Clear Type of Hallucinations: Visual: No, Auditory: No, Command: No - Level of Consciousness Level of Consciousness: Alert Orientation: Yes Intact, Yes Orientated to Time, Yes Orientated to Place, Yes Orientated to Person - Impulse Control Impulse Control: Poor - Insight and Judgement Insight and Judgement: Impaired - Group Participation Particating in Group Activities: No - Medication Management Medication Management Adherence: Yes Assessment - Assessment Merits Inpatient Hospitalization: For Immediate Safety, For Stabilization Inpatient DSM-V Dx: F23 Clinical Impression: 48 wm who arrives from [facility] via 9.45 due to threatening and agitated behavior. He is voicing delusions and paranoid ideation. Collateral information indicates sudden onset of above in the recent past. He has a history of lung cancer metastisized to the brain and is currently in remission. Patient merits hospitalization for immediate safety and stabilization. Plan - Plan Treatment Plan: Name: VIRY FRAUSTO Birthdate: 1970 [id number] continue acute intensive psychiatric treatment. may allow comfort room/ computer use but should remain on q15min obs due to fall risk. obtain OT consult to evaluate need for assisted living. discharge planning to include family and outpatient providers. obtain TSH, free t4, fasting lipid and hgba1c in am. Continued Medication Management: Start Medication Medications: Current Medications Acetaminophen (Tylenol Tab*) 650 mg PO Q4H PRN PRN Reason: PAIN; OR TEMP >101 Al Hydrox/Mg Hydrox/Simethicone (Maalox Plus*) 30 ml PO Q4H PRN PRN Reason: INDIGESTION Clonazepam (Klonopin Tab(*)) 1 mg PO TID [facility] Last Admin: 08/08/18 13:22 Dose: 1 mg Device (Nicotine Mouth Piece*) 1 each INH ONCE PRN PRN Reason: CRAVING Levothyroxine Sodium (Synthroid Tab*) 125 mcg PO DAILY@0600 [facility] Last Admin: 08/08/18 07:36 Dose: 125 mcg Multivitamins/Minerals (Theragran/Minerals Tab*) 1 tab PO DAILY [facility] Last Admin: 08/08/18 07:36 Dose: 1 tab Nicotine (Nicotine Inhaler*) 10 mg INH Q2H PRN PRN Reason: CRAVING Nicotine (Nicotine Patch 21 Mg/24 Hr*) 1 patch TRANSDERM DAILY [facility] Last Admin: 08/08/18 07:37 Dose: Not Given Olanzapine (Zyprexa Tab*) 5 mg PO BEDTIME [facility] Last Admin: 08/07/18 20:47 Dose: 5 mg Pharmacy Profile Note (Nicotine Patch Removal Note*) 1 note FOLLOW UP 2100 [facility] Last Admin: 08/07/18 20:48 Dose: Not Given Sertraline HCl (Zoloft*) 100 mg PO BID [facility] Last Admin: 08/08/18 07:36 Dose: 100 mg - Discharge Plan Discharge Plan: Inpatient Hospitalization
[2018-08-08] MEDS: OLANzapine TAB* 5 MG PO SCH (20:45)
[2018-08-08] MEDS: Nicotine Patch Removal NOTE FOLLOW UP SCH (20:47)
[2018-08-09] MEDS: clonazePAM TAB(*) 1 MG PO SCH ×3 (08:44→20:37)
[2018-08-09] MEDS: Multivitamins/Minerals TAB PO SCH (08:44)
[2018-08-09] MEDS: Levothyroxine TAB* 125 MCG TAB PO SCH (08:44)
[2018-08-09] MEDS: Sertraline* 100 MG TAB PO SCH ×2 (08:44→20:37)
[2018-08-09] MEDS: Nicotine PATCH 21 MG/24 HR* PATCH TRANSDERM SCH (08:44)
--- NOTE | 2018-08-09 16:41 | PN ---
Subjective - Subjective Date of Service: 08/09/18 Service Type: [id number] Hosp care 15 min low complexity Subjective: patient is pleasant upon approach. He denies depressed mood or anxiety. He is showing increased participation in unit programming. He continues to voice paranoid delusions about his sister. He has poor insight into need for housing [facility]. Objective - Appearance Appearance: Well Developed/Nourished Dysmorphic Features: Yes Hygiene: Normal Grooming: Fairly Well Kept - Behavior Psychomotor Activities: Normal Exhibits Abnormal Movement: No - Attitude and Relatedness Attitude and Relatedness: Cooperative Eye Contact: Fair - Speech Quality: Unpressured Latencies: Normal Quantity: Terse - Mood Patient's Decription of Mood: "Okay" - Affect Observed Affect: Unvariable Affect Consistent with: Euthymia - Thought Process Patient's Thought Process: Coherent, Loose Associations Thought Content: Yes Paranoid Ideation, No Passive Wish, No Suicidal Planning, No Homicidal Ideation - Sensorium Experiencing Hallucinations: No, Sensorium is Clear Type of Hallucinations: Visual: No, Auditory: No, Command: No - Level of Consciousness Level of Consciousness: Alert Orientation: Yes Intact, Yes Orientated to Time, Yes Orientated to Place, Yes Orientated to Person - Impulse Control Impulse Control: Tenuous - Insight and Judgement Insight and Judgement: Impaired - Group Participation Particating in Group Activities: Yes - Medication Management Medication Management Adherence: Yes Assessment - Assessment Merits Inpatient Hospitalization: For Immediate Safety, For Stabilization Inpatient DSM-V Dx: F23 Clinical Impression: 48 wm who arrives from [facility] via 9.45 due to threatening and agitated behavior. He is voicing delusions and paranoid ideation. Collateral information indicates sudden onset of above in the recent past. He has a history of lung cancer metastisized to the brain and is currently in remission. Patient merits hospitalization for immediate safety and stabilization. Plan - Plan Treatment Plan: Name: VIRY FRAUSTO JR Birthdate: 1970 [id number] continue acute intensive psychiatric treatment. may allow comfort room/ computer use but should remain on q15min obs due to fall risk. obtain OT consult to evaluate need for assisted living. discharge planning to include family and outpatient providers. obtain TSH, free t4, fasting lipid and hgba1c in am. Continued Medication Management: Different Medication Medications: Current Medications Acetaminophen (Tylenol Tab*) 650 mg PO Q4H PRN PRN Reason: PAIN; OR TEMP >101 Al Hydrox/Mg Hydrox/Simethicone (Maalox Plus*) 30 ml PO Q4H PRN PRN Reason: INDIGESTION Clonazepam (Klonopin Tab(*)) 1 mg PO TID [facility] Last Admin: 08/09/18 15:17 Dose: Not Given Device (Nicotine Mouth Piece*) 1 each INH ONCE PRN PRN Reason: CRAVING Levothyroxine Sodium (Synthroid Tab*) 125 mcg PO DAILY@0600 [facility] Last Admin: 08/09/18 08:44 Dose: 125 mcg Multivitamins/Minerals (Theragran/Minerals Tab*) 1 tab PO DAILY [facility] Last Admin: 08/09/18 08:44 Dose: 1 tab Nicotine (Nicotine Inhaler*) 10 mg INH Q2H PRN PRN Reason: CRAVING Nicotine (Nicotine Patch 21 Mg/24 Hr*) 1 patch TRANSDERM DAILY [facility] Last Admin: 08/09/18 08:44 Dose: Not Given Olanzapine (Zyprexa Tab*) 5 mg PO BEDTIME [facility] Last Admin: 08/08/18 20:45 Dose: 5 mg Pharmacy Profile Note (Nicotine Patch Removal Note*) 1 note FOLLOW UP 2100 [facility] Last Admin: 08/08/18 20:47 Dose: Not Given Sertraline HCl (Zoloft*) 100 mg PO BID [facility] Last Admin: 08/09/18 08:44 Dose: 100 mg increase olanzapine to 10mg - Discharge Plan Discharge Plan: Inpatient Hospitalization
[2018-08-09] MEDS: OLANzapine TAB* 10 MG PO SCH (20:37)
[2018-08-09] MEDS: Nicotine Patch Removal NOTE FOLLOW UP SCH (20:38)
[2018-08-10 08:17] LABS: HDL Cholesterol 25.7 mg/dL
[2018-08-10 08:39] LABS: TSH (Thyroid Stimulating Horm) 20.62 mcIU/mL (0.34-5.60)
[2018-08-10 08:41] LABS: Free T4 0.49 ng/dL (0.61-1.12)
[2018-08-10] MEDS: Multivitamins/Minerals TAB PO SCH (08:53)
[2018-08-10] MEDS: Levothyroxine TAB* 125 MCG TAB PO SCH (08:53)
[2018-08-10] MEDS: clonazePAM TAB(*) 1 MG PO SCH ×3 (08:54→22:38)
[2018-08-10] MEDS: Sertraline* 100 MG TAB PO SCH ×2 (08:54→22:38)
[2018-08-10] MEDS: Nicotine PATCH 21 MG/24 HR* PATCH TRANSDERM SCH (08:55)
[2018-08-10] MEDS ORDERED: Levothyroxine TAB* 25 MCG TAB PO ONE (11:07)
--- NOTE | 2018-08-10 11:32 | PN ---
Subjective - Subjective Date of Service: 08/10/18 Service Type: 10945 Hosp care 25 min moderate complexity Subjective: Patient reports sleeping well until he heard police outside of his room. He explains what he heard but is inaudible and mumbled. He reports desire to return to apartment in [facility] at time of discharge. He denies SI/HI/. He endorses paranoid ideation about his sister, Iliana. Objective - Appearance Appearance: Well Developed/Nourished Dysmorphic Features: No Hygiene: Normal Grooming: Fairly Well Kept - Behavior Psychomotor Activities: Normal Exhibits Abnormal Movement: No - Attitude and Relatedness Attitude and Relatedness: Cooperative Eye Contact: Good - Speech Quality: Unpressured Latencies: Normal Quantity: Appropriate - Mood Patient's Decription of Mood: "Good" - Affect Observed Affect: Good Affect Consistent with: Euthymia - Thought Process Patient's Thought Process: Circumstantial Thought Content: Yes Paranoid Ideation, No Passive Wish, No Suicidal Planning, No Homicidal Ideation - Sensorium Experiencing Hallucinations: No, Sensorium is Clear Type of Hallucinations: Visual: Yes, Auditory: Yes, Command: Yes - Level of Consciousness Level of Consciousness: Alert Orientation: Yes Intact, Yes Orientated to Time, Yes Orientated to Place, Yes Orientated to Person - Impulse Control Impulse Control: Tenuous - Insight and Judgement Insight and Judgement: Poor - Group Participation Particating in Group Activities: No - Medication Management Medication Management Adherence: Yes Assessment - Assessment Merits Inpatient Hospitalization: For Immediate Safety, For Stabilization, Pending Safe DC Plan Inpatient DSM-V Dx: F23 Clinical Impression: 48 wm who [facility] 9.45 due to threatening and agitated behavior. He continues to voice delusions and paranoid ideation that are antagonizing bizarre interactions with others. He has a history of lung cancer metastisized to the brain and is currently in remission. Patient merits hospitalization for immediate safety and stabilization. Plan - Plan Treatment Plan: Name: VIRY FRAUSTO JR Birthdate: 1970 [id number] continue acute intensive psychiatric treatment. may allow comfort room/ computer use but should remain on q15min obs due to fall risk. increase levothyroxine to 150mcg/day discharge planning to include family and outpatient providers. Continued Medication Management: Start Medication Medications: Current Medications Acetaminophen (Tylenol Tab*) 650 mg PO Q4H PRN PRN Reason: PAIN; OR TEMP >101 Al Hydrox/Mg Hydrox/Simethicone (Maalox Plus*) 30 ml PO Q4H PRN PRN Reason: INDIGESTION Clonazepam (Klonopin Tab(*)) 1 mg PO TID [facility] Last Admin: 08/10/18 08:54 Dose: 1 mg Device (Nicotine Mouth Piece*) 1 each INH ONCE PRN PRN Reason: CRAVING Levothyroxine Sodium (Synthroid Tab*) 150 mcg PO DAILY@0600 [facility] Multivitamins/Minerals (Theragran/Minerals Tab*) 1 tab PO DAILY [facility] Last Admin: 08/10/18 08:53 Dose: 1 tab Nicotine (Nicotine Inhaler*) 10 mg INH Q2H PRN PRN Reason: CRAVING Nicotine (Nicotine Patch 21 Mg/24 Hr*) 1 patch TRANSDERM DAILY [facility] Last Admin: 08/10/18 08:55 Dose: Not Given Olanzapine (Zyprexa Tab*) 10 mg PO BEDTIME [facility] Last Admin: 08/09/18 20:37 Dose: 10 mg Pharmacy Profile Note (Nicotine Patch Removal Note*) 1 note FOLLOW UP 2100 [facility] Last Admin: 08/09/18 20:38 Dose: Not Given Sertraline HCl (Zoloft*) 100 mg PO BID [facility] Last Admin: 08/10/18 08:54 Dose: 100 mg - Discharge Plan Discharge Plan: Inpatient Hospitalization
[2018-08-10] MEDS: OLANzapine TAB* 10 MG PO SCH (22:40)
[2018-08-10] MEDS: Nicotine Patch Removal NOTE FOLLOW UP SCH (22:54)
[2018-08-11] MEDS: Multivitamins/Minerals TAB PO SCH (09:21)
[2018-08-11] MEDS: Levothyroxine TAB* 150 MCG TAB PO SCH (09:21)
[2018-08-11] MEDS: Sertraline* 100 MG TAB PO SCH ×2 (09:21→21:20)
[2018-08-11] MEDS: clonazePAM TAB(*) 1 MG PO SCH ×3 (09:21→21:20)
[2018-08-11] MEDS: Nicotine PATCH 21 MG/24 HR* PATCH TRANSDERM SCH (09:22)
--- NOTE | 2018-08-11 13:52 | PN ---
Subjective - Subjective Date of Service: 08/11/18 Service Type: [id number] Hosp care 25 min moderate complexity Subjective: Patient reports readiness for discharge. He is informed of availability to return to apartment [facility]. He gives verbal consent for hand sign writer to discuss logistics of discharge planning with his sister, Iliana. Patient continues to endorse delusions that she is controlling the radio, even in the hospital. Patient denies SI/HI/. he is medication compliant and in behavioral control. He mentions wanting to be a part of a cancer survivor group and is given resource information by Recreation Therapist, Tyra Cabral. Filter Press Supervisor left for sister, Iliana at [phone]. Objective - Appearance Appearance: Well Developed/Nourished Dysmorphic Features: No Hygiene: Normal Grooming: Well Kept - Behavior Psychomotor Activities: Normal Exhibits Abnormal Movement: No - Attitude and Relatedness Attitude and Relatedness: Cooperative Eye Contact: Good - Speech Quality: Unpressured Latencies: Normal Quantity: Appropriate - Mood Patient's Decription of Mood: "Good" - Affect Observed Affect: Good Affect Consistent with: Euthymia - Thought Process Patient's Thought Process: Coherent, Goal Directed Thought Content: Yes Paranoid Ideation, No Passive Wish, No Suicidal Planning, No Homicidal Ideation - Sensorium Experiencing Hallucinations: No, Sensorium is Clear Type of Hallucinations: Visual: No, Auditory: Yes, Command: No - Level of Consciousness Level of Consciousness: Alert Orientation: Yes Intact, Yes Orientated to Time, Yes Orientated to Place, Yes Orientated to Person - Impulse Control Impulse Control: Intact - Insight and Judgement Insight and Judgement: Fair - Group Participation Particating in Group Activities: No - Medication Management Medication Management Adherence: Yes Assessment - Assessment Merits Inpatient Hospitalization: For Immediate Safety, Consolidate Improvements , For Discharge Planning, Pending Safe DC Plan Inpatient DSM-V Dx: F23 Clinical Impression: 48 wm who arrives from homeless [facility] via 9.45 due to threatening and agitated behavior. He continues to voice delusions and paranoid ideation that are antagonizing bizarre interactions with others. He has a history of lung cancer metastisized to the brain and is currently in remission. Patient merits hospitalization for immediate safety and stabilization. Plan - Plan Treatment Plan: Name: VIRY FRAUSTO JR Birthdate: 1970 [id number] continue acute intensive psychiatric treatment. may allow comfort room/ computer use but should remain on q15min obs due to fall risk. continue current medications. discharge planning to include family and outpatient providers. Medications: Current Medications Acetaminophen (Tylenol Tab*) 650 mg PO Q4H PRN PRN Reason: PAIN; OR TEMP >101 Al Hydrox/Mg Hydrox/Simethicone (Maalox Plus*) 30 ml PO Q4H PRN PRN Reason: INDIGESTION Clonazepam (Klonopin Tab(*)) 1 mg PO TID [facility] Last Admin: 08/11/18 09:21 Dose: 1 mg Device (Nicotine Mouth Piece*) 1 each INH ONCE PRN PRN Reason: CRAVING Levothyroxine Sodium (Synthroid Tab*) 150 mcg PO DAILY@0600 [facility] Last Admin: 08/11/18 09:21 Dose: 150 mcg Multivitamins/Minerals (Theragran/Minerals Tab*) 1 tab PO DAILY [facility] Last Admin: 08/11/18 09:21 Dose: 1 tab Nicotine (Nicotine Inhaler*) 10 mg INH Q2H PRN PRN Reason: CRAVING Nicotine (Nicotine Patch 21 Mg/24 Hr*) 1 patch TRANSDERM DAILY [facility] Last Admin: 08/11/18 09:22 Dose: Not Given Olanzapine (Zyprexa Tab*) 10 mg PO BEDTIME [facility] Last Admin: 08/10/18 22:40 Dose: 10 mg Pharmacy Profile Note (Nicotine Patch Removal Note*) 1 note FOLLOW UP 2100 [facility] Last Admin: 08/10/18 22:54 Dose: Not Given Sertraline HCl (Zoloft*) 100 mg PO BID [facility] Last Admin: 08/11/18 09:21 Dose: 100 mg - Discharge Plan Discharge Plan: Outpatient Follow Up Outpatient Program: [facility]
[2018-08-11] MEDS: Nicotine Patch Removal NOTE FOLLOW UP SCH (21:17)
[2018-08-11] MEDS: OLANzapine TAB* 10 MG PO SCH (21:20)
[2018-08-12] MEDS: Sertraline* 100 MG TAB PO SCH ×2 (07:10→22:18)
[2018-08-12] MEDS: Levothyroxine TAB* 150 MCG TAB PO SCH (07:10)
[2018-08-12] MEDS: Nicotine PATCH 21 MG/24 HR* PATCH TRANSDERM SCH (07:10)
[2018-08-12] MEDS: Multivitamins/Minerals TAB PO SCH (07:10)
[2018-08-12] MEDS: clonazePAM TAB(*) 1 MG PO SCH ×3 (07:10→22:17)
--- NOTE | 2018-08-12 14:54 | PN ---
Subjective - Subjective Date of Service: 08/12/18 Service Type: 53583 Hosp care 25 min moderate complexity Subjective: Patient reports he isn't willing to let his sister have his keys or have contact with her to assist in coordinating moving belongings back to the apt [facility]. Neurocritical Care Physician phoned sister and Viry agreed to stand nearby; both parties agreed to be placed on speaker phone. Viry minimally engaged then after phone call went on about that she is controlling music heard on the unit and that she murdered his dog. Iliana was polite and short story writer thanked her for her effort and time. Objective - Appearance Appearance: Well Developed/Nourished Dysmorphic Features: No Hygiene: Normal Grooming: Fairly Well Kept - Behavior Psychomotor Activities: Normal Exhibits Abnormal Movement: No - Attitude and Relatedness Attitude and Relatedness: Irritable Eye Contact: Good - Speech Quality: Unpressured Latencies: Normal Quantity: Terse - Mood Patient's Decription of Mood: "Good" - Affect Observed Affect: Expansive Affect Consistent with: Euthymia - Thought Process Patient's Thought Process: Circumstantial Thought Content: Yes Paranoid Ideation, No Passive Wish, No Suicidal Planning, No Homicidal Ideation - Sensorium Experiencing Hallucinations: No, Sensorium is Clear Type of Hallucinations: Visual: No, Auditory: Yes, Command: No - Level of Consciousness Level of Consciousness: Alert Orientation: Yes Intact, Yes Orientated to Time, Yes Orientated to Place, Yes Orientated to Person - Impulse Control Impulse Control: Tenuous - Insight and Judgement Insight and Judgement: Poor - Group Participation Particating in Group Activities: No - Medication Management Medication Management Adherence: Yes Assessment - Assessment Merits Inpatient Hospitalization: For Immediate Safety, For Stabilization, Consolidate Improvements, Pending Safe DC Plan Inpatient DSM-V Dx: F23 Clinical Impression: 48 wm who [facility] via 9.45 due to threatening and agitated behavior. He continues to voice delusions and paranoid ideation that are antagonizing bizarre interactions with others. He has a history of lung cancer metastisized to the brain and is currently in remission. Patient merits hospitalization for immediate safety and stabilization. Plan - Plan Treatment Plan: Name: VIRY FRAUSTO Birthdate: 1970 [id number] continue acute intensive psychiatric treatment. may decrease to q30min. may allow comfort room/computer use increase olanzapine to 15mg qhs. discharge planning to include family and outpatient providers. Continued Medication Management: Start Medication Medications: Current Medications Acetaminophen (Tylenol Tab*) 650 mg PO Q4H PRN PRN Reason: PAIN; OR TEMP >101 Al Hydrox/Mg Hydrox/Simethicone (Maalox Plus*) 30 ml PO Q4H PRN PRN Reason: INDIGESTION Clonazepam (Klonopin Tab(*)) 1 mg PO TID [facility] Last Admin: 08/12/18 14:22 Dose: 1 mg Device (Nicotine Mouth Piece*) 1 each INH ONCE PRN PRN Reason: CRAVING Levothyroxine Sodium (Synthroid Tab*) 150 mcg PO DAILY@0600 [facility] Last Admin: 08/12/18 07:10 Dose: 150 mcg Multivitamins/Minerals (Theragran/Minerals Tab*) 1 tab PO DAILY [facility] Last Admin: 08/12/18 07:10 Dose: 1 tab Nicotine (Nicotine Inhaler*) 10 mg INH Q2H PRN PRN Reason: CRAVING Nicotine (Nicotine Patch 21 Mg/24 Hr*) 1 patch TRANSDERM DAILY [facility] Last Admin: 08/12/18 07:10 Dose: Not Given Olanzapine (Zyprexa Tab*) 10 mg PO BEDTIME [facility] Last Admin: 08/11/18 21:20 Dose: 10 mg Pharmacy Profile Note (Nicotine Patch Removal Note*) 1 note FOLLOW UP 2100 [facility] Last Admin: 08/11/18 21:17 Dose: Not Given Sertraline HCl (Zoloft*) 100 mg PO BID [facility] Last Admin: 08/12/18 07:10 Dose: 100 mg - Discharge Plan Discharge Plan: Inpatient Hospitalization
[2018-08-12] MEDS: Nicotine Patch Removal NOTE FOLLOW UP SCH (22:16)
[2018-08-12] MEDS: OLANzapine TAB* 10 MG PO SCH (22:18)
[2018-08-13] MEDS: Multivitamins/Minerals TAB PO SCH (07:47)
[2018-08-13] MEDS: clonazePAM TAB(*) 1 MG PO SCH ×3 (07:47→21:45)
[2018-08-13] MEDS: Sertraline* 100 MG TAB PO SCH ×2 (07:47→21:45)
[2018-08-13] MEDS: Levothyroxine TAB* 150 MCG TAB PO SCH (07:48)
[2018-08-13] MEDS: Nicotine PATCH 21 MG/24 HR* PATCH TRANSDERM SCH (07:50)
[2018-08-13 11:56] VITALS: BP 114/65
[2018-08-13] MEDS: OLANzapine TAB* 10 MG PO SCH (21:45)
[2018-08-13] MEDS: Nicotine Patch Removal NOTE FOLLOW UP SCH (23:03)
[2018-08-14] MEDS: clonazePAM TAB(*) 1 MG PO SCH ×4 (08:24→20:03)
[2018-08-14] MEDS: Multivitamins/Minerals TAB PO SCH (08:24)
[2018-08-14] MEDS: Levothyroxine TAB* 150 MCG TAB PO SCH (08:24)
[2018-08-14] MEDS: Nicotine PATCH 21 MG/24 HR* PATCH TRANSDERM SCH (08:24)
[2018-08-14] MEDS: Sertraline* 100 MG TAB PO SCH ×2 (08:24→20:03)
[2018-08-14] MEDS: OLANzapine TAB* 10 MG PO SCH (20:03)
[2018-08-14] MEDS: Nicotine Patch Removal NOTE FOLLOW UP SCH (20:04)
[2018-08-15] MEDS: Levothyroxine TAB* 150 MCG TAB PO SCH (05:10)
[2018-08-15] MEDS: Sertraline* 100 MG TAB PO SCH (07:30)
[2018-08-15] MEDS: clonazePAM TAB(*) 1 MG PO SCH (07:30)
[2018-08-15] MEDS: Nicotine PATCH 21 MG/24 HR* PATCH TRANSDERM SCH (07:31)
[2018-08-15] MEDS: Multivitamins/Minerals TAB PO SCH (07:31)
--- NOTE | 2018-08-16 23:23 | DS ---
CC: [facility]; Dr. Boaz Pruitt * DISCHARGE SUMMARY: DATE OF ADMISSION: 08/04/18 DATE OF DISCHARGE: 08/15/18 SUPERVISING PSYCHIATRIST: Dr. Luis Miguel Ni.* (DICTATED BY ANIVAL VARGAS NP) DISCHARGE DIAGNOSES: 1. Delusional disorder. 2. Generalized anxiety disorder. CONDITION AT TIME OF DISCHARGE: Improved. The patient is euthymic with bright affect. He has been safe on all checks and in behavioral control. He reports willingness to coordinate with his sister to get his belongings back to his apartment. This scenario writer spoke with his APS team including site supervisor, Demarco Coley, to discuss logistics of discharge. The patient has been transferred from [facility] to [facility] through [facility]. The patient does state desire to return to the fdc to gain his keys, wallets, and belongings and then to apartment dwelling that is still active on [address]. The patient denies suicidal ideation. He denies violent or homicidal ideation. He denies auditory hallucinations, visual hallucinations. He continues to endorse delusional ideas. As stated above, he is willing to attempt to forgive his sister and move forward in order to reestablish housing. This scenario writer also spoke with comfort keepers for help in the home. The patient health care manager needs to call [facility] and inquire about an assessment. This information was passed on to the patient's Adult Protective Team. MENTAL STATUS EXAM: Rick is a 48-year-old white male who appears much older than his stated age. He is wearing a bandana due to alopecia. He has glasses that are broken and he is wearing an eye patch over the left eye due to diplopia. He has poor dentition, but adequate ADLs. He is adequately groomed and wearing casual clothing of his own. The patient is alert and oriented x3. Eye contact is good. Speech is soft and articulate. Mood is euthymic with congruent affect. No abnormal psychomotor activity noted. Thought process is logical, goal-directed, and coherent. Thought content is positive for paranoid delusions. He denies HI, , or SI. Insight and judgment are fair. Fund of knowledge is adequate. INSTRUCTIONS GIVEN TO PATIENT: A. Medications: 1. Clonazepam 1 mg p.o. t.i.d. 2. Levothyroxine 150 mcg p.o. daily. 3. Olanzapine 10 mg p.o. q.h.s. 4. Sertraline 100 mg p.o. b.i.d. The above were electronically prescribed. B. Diet: Regular, low-fat, low-cholesterol recommended. C. Activity: As tolerated. Tobacco cessation is declined by patient. There are no pending labs or diagnostic studies. D. Followup care: The patient will follow up with [facility] and has an appointment with Cinthya Renee on , 08/18/18 at 3 p.m. He has an appointment with Dr. Pruitt, his primary care provider, on Wednesday at 4 p.m. E. Substance use followup: Not applicable. HOSPITAL COURSE: Part A. Reason for admission: The patient presented to the emergency department via police and [facility] due to threatening and aggressive behavior. Rick is a 48-year-old white male who is currently residing at a homeless fdc. He is a client of [facility] and sees Dr. Valdivia and Cinthya Renee. He has a remote history of agoraphobia for many years. Recently , he was residing with his sister and there was aggression and threatening behavior in the home. The patient has fixed delusion that his sister took his dog of 5 years and puppies to the [facility] and they were stolen. He also reports that she has blamed him for the dog that was missing and claims that he killed it. He denies all of this to be true. The patient was admitted on involuntary status due to conflicting reports and uncertain psychiatric status. Part B. Psychiatric treatment rendered: Upon admission, he was placed on 15- minute checks for his safety. Code status was full. We obtained a Swallow consult and a Nutrition consult due to his need for a pureed diet. We resumed outpatient medications and added olanzapine at bedtime. The patient remained primarily seclusive while on the unit and reported that people were misunderstanding him resulting in this hospitalization. The patient gave verbal consent to this scenario writer to speak with his oncologist, Dr. Minor. Dr. Minor reported the patient has not been on therapy for months and scans have been stable as recent as July. On the unit, the patient reported his mood was good, but that he was bored. He avoided groups and interactions with others. He endorsed auditory hallucinations and continued to voice paranoid delusions. The patient reported sleeping well. He was medication compliant throughout the hospitalization. During hospitalization, Social Work verified that the patient is able to return to an apartment he was residing in on [address]. Per collateral from larissa, the patient wrote copious notes on last 2 checks, but neglected to sign them; therefore, he was behind in rent. He was presented with this information and says that he has money in his bank account to pay rent. We attempted to coordinate with family members with patient consent to have his belongings moved from his sister's and fdc to apartment. The patient was initially avoidant of allowing his sister to be involved. We solicited assistance from his APS Care Team, see note above. Throughout the hospitalization, the patient denied suicidal ideation, homicidal ideation, or violent ideation. He continued to endorse delusions that his sister is controlling the radio even in the hospital. He was medication compliant and in behavioral control. He mentioned wanting to be part of a cancer survivor group and was given [facility] about [facility]. Due to obligation to treat the patient in least restrictive setting, discharge was agreed upon by team. ANIVAL VARGAS NP [id number]/[facility] #: [id number] BARB
== END 2018-08-15 11:54 | disposition home or self-care (01) | DRG 751 ==
LOC: ED 12:02 → BSU 17:46
PROVIDERS: ADMIT Psychiatry & Neurology Psychiatry; ATTEND Psychiatry & Neurology Psychiatry
DX: F23 Brief psychotic disorder (principal); C34.90 Malignant neoplasm of unspecified part of unspecified bronchus or lung; C79.31 Secondary malignant neoplasm of brain; F17.210 Nicotine dependence, cigarettes, uncomplicated; I10 Essential (primary) hypertension; E03.9 Hypothyroidism, unspecified; Z91.410 Personal history of adult physical and sexual abuse; Z79.899 Other long term (current) drug therapy
CPT/HCPCS: 36415; 80053; 80061; 80307; 80320; 80329; 81003; 83036; 84439; 84443; 85025; 99222; 99231; 99232; 99238; 99283; A9270-GY; G0480; G8987-GO-CI; G8988-GO-CI; G8989-GO-CI

== ENCOUNTER 2018-08-20 16:11 | Inpatient (IN) | payer OTHER ==
[2018-08-20] MEDS ORDERED: Nicotine Inhaler* 10 MG AMP INH PRN (16:25)
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
[2018-08-20 16:56] LABS: ABS Basophils 0.1 10^3/ul (0-0.2); ABS Eosinophils 0.2 10^3/ul (0-0.6); ABS Lymphocytes 1.3 10^3/ul (1.0-4.8); ABS Monocytes 0.3 10^3/ul (0-0.8); ABS Neutrophils 5.6 10^3/ul (1.5-7.7); ABS Nucleated RBC 0 10^3/ul; Eosinophil % 2.8 %; Hematocrit 37 % (42-52); Hemoglobin 12.5 g/dl (14.0-18.0); Lymphocyte % 16.9 %; Mean Corpuscular HGB Conc 34 g/dl (31-36); Mean Corpuscular Hemoglobin 29 pg (27-31); Mean Corpuscular Volume 85 fL (80-94); Mean Platelet Volume 6.2 fL (7.4-10.4); Nucleated Red Blood Cells % 0.1; Platelet Count 237 10^3/ul (150-450); Red Blood Count 4.39 10^6/ul (4.00-5.40); Red Cell Distribution Width 15 % (10.5-15); White Blood Count 7.5 10^3/ul (3.5-10.8)
[2018-08-20 17:13] LABS: ALT 40 U/L (7-52); AST 32 U/L (13-39); Albumin 4.2 g/dL (3.2-5.2); Albumin/Globulin Ratio 1.2 (1-3); Alkaline Phosphatase 72 U/L (34-104); Anion Gap 8 mmol/L (2-11); BUN/Creatinine Ratio 13.6 (8-20); Blood Urea Nitrogen 11 mg/dL (6-24); CO2 Carbon Dioxide 26 mmol/L (22-32); Calcium 9.5 mg/dL (8.6-10.3); Chloride 98 mmol/L (101-111); EGFR African American 123.6 (>60); EGFR Non-African American 102.1 (>60); Globulin 3.4 g/dL (2-4); Glucose 99 mg/dL (70-100); Potassium 3.6 mmol/L (3.5-5.0); Sodium 132 mmol/L (135-145); Total Protein 7.6 g/dL (6.4-8.9)
[2018-08-20 17:21] LABS: Acetaminophen < 15 mcg/mL; Alcohol < 10 mg/dL (<10); Salicylate < 2.50 mg/dL (<30)
[2018-08-20 17:35] LABS: TSH (Thyroid Stimulating Horm) 5.85 mcIU/mL (0.34-5.60)
--- NOTE | 2018-08-20 19:28 | ED ---
Progress - Progress Note Progress Note: The pt is a 48 year old male who is presenting to the [facility] with a chief complaint of anxiety. PT was signed out by Dr. Tsai to Dr. Chavez. Currently pt is awaiting completion of MHE and disposition. - EKG/XRAY/CT Comments: EKG taken at 2235 shows Sinus Bradycardia at 53 bpm and 1st degree AV block Course/Dx - Course Course Of Treatment: The pt is a 48 year old male who is a sign out from Dr. Tsai to Dr. Chavez. He was cleared for MHE. He is currently awaiting MHE and disposition. MHE was completed at [address] Li and patient is currently pending transfer. The pt also received an EKG in the [facility]. Dx as per Dr. Li will be psychosis not otherwise specified (NOS). The patient will be signed out from Dr. Chavez to Dr. Tsai pending disposition. - Diagnoses Provider Diagnoses: Unspecified psychosis Discharge - Sign-Out/Discharge Documenting (check all that apply): Sign-Out Patient Signing out patient TO: Afsaneh Tsai - Discharge Plan Condition: Stable Referrals: Boaz Pruitt MD [Primary Care Provider] - - Billing Disposition and Condition Condition: STABLE - Attestation Statements Document Initiated by Hectoribe: Yes Documenting Scribe: Diego Garcia Provider For Whom Shannan is Documenting (Include Credential): Dr. Dagoberto Youngibshawn Attestation: Diego Sears scribed for Dr. Howard Chavez on 08/21/18 at 0615. Scribe Documentation Reviewed: Yes Provider Attestation: The documentation as recorded by the Diego anderson accurately reflects the service I personally performed and the decisions made by me, Dr. Howard Chavez Status of Scribshawn Document: Viewed
[2018-08-20] MEDS ORDERED: Mouth Piece, Nicotine* 1 EACH CARTRIDGE INH PRN (20:24)
[2018-08-21] MEDS ORDERED: Sertraline* 100 MG TAB PO ONE ×4 (01:42→21:36)
[2018-08-21] MEDS ORDERED: clonazePAM TAB(*) 1 MG PO ONE ×3 (01:43→21:35)
--- NOTE | 2018-08-21 07:56 | ED ---
Progress - Progress Note Progress Note: The pt is a 48 year old male who is presenting to the [facility] with a chief complaint of anxiety. PT was signed out by Dr. Tsai to Dr. Chavez. Currently pt is awaiting completion of MHE and disposition. PATIENT WILL BE SIGNED OUT TO DR. RUBA CHAVEZ VIA DR. MIYA TSAI, PENDING MENTAL HEALTH TRANSFER, ON SHIFT CHANGE ON AUGUST 21, 2018 AT 1900. - EKG/XRAY/CT Comments: EKG taken at 2235 shows Sinus Bradycardia at 53 bpm and 1st degree AV block - Consult/PCP Time Called: 16:22 Course/Dx - Course Course Of Treatment: The pt is a 48 year old male who is a sign out from Dr. Tsai to Dr. Chavez. He was cleared for MHE. He is currently awaiting MHE and disposition. MHE was completed at [address] Li and patient is currently pending transfer. The pt also received an EKG in the [facility]. Dx as per Dr. Li will be psychosis not otherwise specified (NOS). The patient will be signed out from Dr. Chavez to Dr. Tsai pending disposition. PATIENT WILL BE SIGNED OUT TO DR. RUBA CHAVEZ VIA DR. MIYA TSAI, PENDING MENTAL HEALTH TRANSFER, ON SHIFT CHANGE ON AUGUST 21, 2018 AT 1900. - Diagnoses Provider Diagnoses: Unspecified psychosis Discharge - Sign-Out/Discharge Documenting (check all that apply): Sign-Out Patient - RENÉE Signing out patient TO: Ruba Chavez Receiving patient FROM: Miya Tsai - Discharge Plan Condition: Stable Referrals: Boaz Pruitt MD [Primary Care Provider] - - Billing Disposition and Condition Condition: STABLE - Attestation Statements Document Initiated by Shannan: Yes Documenting Scribe: Hosea Garner Provider For Whom Shannan is Documenting (Include Credential): Miya Tsai MD Scribe Attestation: Hosea Sears scribed for Miya Tsai MD on 08/21/18 at 1904. Scribe Documentation Reviewed: Yes Provider Attestation: The documentation as recorded by the Hosea anderson accurately reflects the service I personally performed and the decisions made by , Miya Tsai MD Status of Scribe Document: Viewed
[2018-08-21] MEDS ORDERED: Levothyroxine TAB* 150 MCG TAB PO ONE (09:36)
[2018-08-21 10:03] LABS: Free T4 0.55 ng/dL (0.61-1.12)
--- NOTE | 2018-08-21 10:14 | PN ---
ED Flex Patient Progress Note Subjective: This is a 48 year-old M who is pending transfer to another psychiatric facility secondary to psychosis . Pt offers no complaints at this time other than he cannot eat solids due to "flesh in my throat". Can consume liquids, soft foods such as yogurt - will order. Objective: Vitals: Most recent vital signs documented below. General NAD, Alert and oriented x3. EENT: mucosa moist, patch over Lt eye Heart: rrr S1/S2 Lungs: CTA, breathing easily AB: + BS, soft INTEG: no acute injuries identified; scar over Lt parietal region PAM: moving well Extremities: no edema, well perfused PSYCH: pleasant, calm, cooperative, appropriate affect Laboratory: Current laboratory results documented below. *FT4 checked today d/t low TSH - FT4 is low but improved from previous and almost to normal range Assessment: #1. psychosis #2. thyroid dz Plan: #1. Will order daily meds of sertraline 100mg BID, klonopin 1mg TID, and zyprexa 10mg bedtime. Pending psychiatric transfer. Will follow up daily ___ while in ED__. #2. Will order levothyroxine 150mcg daily 1 hour before food in AM. Labs are improving from previously this month. Could be contributing to recent mood changes however levels appear to be improving. Vital Signs Temp Pulse Resp BP Pulse Ox 97.5 F 53 16 115/72 98 08/21/18 09:30 08/21/18 09:30 08/21/18 09:30 08/21/18 09:30 08/21/18 09:30 Lab Results - Entire Visit 08/20/18 08/20/18 08/20/18 15:55 15:55 15:55 WBC 7.5 RBC 4.39 Hgb 12.5 L Hct 37 L MCV 85 MCH 29 MCHC 34 RDW 15 Plt Count 237 MPV 6.2 L Neut % (Auto) 74.7 Lymph % (Auto) 16.9 [place] % (Auto) 4.6 Eos % (Auto) 2.8 Baso % (Auto) 1.0 Absolute Neuts (auto) 5.6 Absolute Lymphs (auto) 1.3 Absolute Monos (auto) 0.3 Absolute Eos (auto) 0.2 Absolute Basos (auto) 0.1 Absolute Nucleated RBC 0 Nucleated RBC % 0.1 Sodium 132 L Potassium 3.6 Chloride 98 L Carbon Dioxide 26 Anion Gap 8 BUN 11 Creatinine 0.81 Est GFR ( Amer) 123.6 Est GFR (Non-Af Amer) 102.1 BUN/Creatinine Ratio 13.6 Glucose 99 Lactic Acid 1.7 Calcium 9.5 Total Bilirubin 0.30 AST 32 ALT 40 Alkaline Phosphatase 72 Total Protein 7.6 Albumin 4.2 Globulin 3.4 Albumin/Globulin Ratio 1.2 TSH 5.85 H Free T4 0.55 L Salicylates < 2.50 Acetaminophen < 15 Serum Alcohol < 10
[2018-08-21 16:38] LABS: Urine Appearance Clear; Urine Color Yellow
[2018-08-21 16:39] LABS: Urine Ketones Negative (Negative); Urine Protein 1+(30 mg/dL) (Negative); Urine Urobilinogen Positive (Negative)
[2018-08-21 16:40] LABS: Urine Blood Negative (Negative); Urine Nitrite Negative (Negative)
[2018-08-21 16:41] LABS: Urine Bilirubin Negative (Negative); Urine Glucose Negative (Negative)
[2018-08-21 16:45] LABS: Urine Bacteria Absent (Absent); Urine Red Blood Cell Trace(0-2/hpf) (Absent); Urine White Blood Cell Trace(0-5/hpf) (Absent)
[2018-08-21 17:03] LABS: Barbiturates Urine Screen None Detected (None Detect); Benzodiazepine Urine Screen Presumptive Positive (None Detect); Urine Cannabinoids Screen None Detected (None Detect)
--- NOTE | 2018-08-21 19:07 | ED ---
Progress - Progress Note Progress Note: Patient is received as a sign out from Dr. Tsai to Dr. Chavez at 1900 08/21/18 shift change pending transfer. No changes in the status of the patient during the shift. . The patient will be signed out to Dr. Gibbons at 0700 08/22/18 shift change pending transfer. - EKG/XRAY/CT Comments: EKG taken at 2236 shows Sinus Bradycardia at 53 bpm and 1st degree AV block - Consult/PCP Time Called: 16:22 Course/Dx - Course Course Of Treatment: Patient is received as a sign out from Dr. Tsai to Dr. Chavez at 1900 08/21/18 shift change pending transfer. No changes in the status of the patient during the shift. . The patient will be signed out to Dr. Gibbons at 0700 08/22/18 shift change pending transfer. - Diagnoses Provider Diagnoses: Unspecified psychosis Discharge - Sign-Out/Discharge Documenting (check all that apply): Sign-Out Patient Signing out patient TO: Ashvin Gibbons Receiving patient FROM: Ruba Chavez - Discharge Plan Condition: Stable Referrals: Boaz Pruitt MD [Primary Care Provider] - - Attestation Statements Document Initiated by Scribe: Yes Documenting Scribe: PATRICK MATUTE Provider For Whom Shannan is Documenting (Include Credential): RUBA CHAVEZ MD Scribe Attestation: PATRICK Sears , scribed for RUBA CHAVEZ MD on 08/22/18 at 0619. Status of Scribe Document: Ready
[2018-08-21] MEDS ORDERED: OLANzapine TAB* 10 MG PO ONE (21:36)
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
[2018-08-22] MEDS ORDERED: Levothyroxine TAB* 150 MCG TAB PO ONE (09:36)
--- NOTE | 2018-08-22 10:30 | PN ---
ED Flex Patient Progress Note Date of Service: 08/22/18 Subjective: 48 y.o. disabled white male with a history of cancer, just discharged from [facility] on 08/15/18, now returns with overt symptoms of psychosis. Objective: appears older than stated age; wearing eye patch; uncooperative and paranoid; mildly agitated Assessment: Unspecified psychotic DO Plan: Patient will be readmitted to [facility] pending bed availability. Vital Signs Temp Pulse Resp BP Pulse Ox 98.5 F 57 20 121/75 98 08/22/18 07:50 08/22/18 07:50 08/22/18 07:50 08/22/18 07:50 08/22/18 07:50 Lab Results - Entire Visit 08/21/18 08/21/18 08/20/18 16:25 16:25 15:55 WBC RBC Hgb Hct MCV MCH MCHC RDW Plt Count MPV Neut % (Auto) Lymph % (Auto) [place] % (Auto) Eos % (Auto) Baso % (Auto) Absolute Neuts (auto) Absolute Lymphs (auto) Absolute Monos (auto) Absolute Eos (auto) Absolute Basos (auto) Absolute Nucleated RBC Nucleated RBC % Sodium Potassium Chloride Carbon Dioxide Anion Gap BUN Creatinine Est GFR ( Amer) Est GFR (Non-Af Amer) BUN/Creatinine Ratio Glucose Lactic Acid 1.7 Calcium Total Bilirubin AST ALT Alkaline Phosphatase Total Protein Albumin Globulin Albumin/Globulin Ratio TSH Free T4 Urine Color Yellow Urine Appearance Clear Urine pH 7.0 Ur Specific [place] 1.010 Urine Protein 1+(30 mg/dl) A Urine Ketones Negative Urine Blood Negative Urine Nitrate Negative Urine Bilirubin Negative Urine Urobilinogen Positive A Ur Leukocyte Esterase Negative Urine WBC (Auto) Trace(0-5/hpf) Urine RBC (Auto) Trace(0-2/hpf) Urine Bacteria Absent Urine Glucose Negative Urine Ascorbic Acid * A Salicylates Urine Opiates Screen None detected Acetaminophen Ur Barbiturates Screen None detected Ur Phencyclidine Scrn None detected Ur Amphetamines Screen None detected U Benzodiazepines Scrn Presumptive positive A Urine Cocaine Screen None detected U Cannabinoids Screen None detected Serum Alcohol 08/20/18 08/20/18 15:55 15:55 WBC 7.5 RBC 4.39 Hgb 12.5 L Hct 37 L MCV 85 MCH 29 MCHC 34 RDW 15 Plt Count 237 MPV 6.2 L Neut % (Auto) 74.7 Lymph % (Auto) 16.9 [place] % (Auto) 4.6 Eos % (Auto) 2.8 Baso % (Auto) 1.0 Absolute Neuts (auto) 5.6 Absolute Lymphs (auto) 1.3 Absolute Monos (auto) 0.3 Absolute Eos (auto) 0.2 Absolute Basos (auto) 0.1 Absolute Nucleated RBC 0 Nucleated RBC % 0.1 Sodium 132 L Potassium 3.6 Chloride 98 L Carbon Dioxide 26 Anion Gap 8 BUN 11 Creatinine 0.81 Est GFR ( Amer) 123.6 Est GFR (Non-Af Amer) 102.1 BUN/Creatinine Ratio 13.6 Glucose 99 Lactic Acid Calcium 9.5 Total Bilirubin 0.30 AST 32 ALT 40 Alkaline Phosphatase 72 Total Protein 7.6 Albumin 4.2 Globulin 3.4 Albumin/Globulin Ratio 1.2 TSH 5.85 H Free T4 0.55 L Urine Color Urine Appearance Urine pH Ur Specific [place] Urine Protein Urine Ketones Urine Blood Urine Nitrate Urine Bilirubin Urine Urobilinogen Ur Leukocyte Esterase Urine WBC (Auto) Urine RBC (Auto) Urine Bacteria Urine Glucose Urine Ascorbic Acid Salicylates < 2.50 Urine Opiates Screen Acetaminophen < 15 Ur Barbiturates Screen Ur Phencyclidine Scrn Ur Amphetamines Screen U Benzodiazepines Scrn Urine Cocaine Screen U Cannabinoids Screen Serum Alcohol < 10
[2018-08-22] MEDS ORDERED: Acetaminophen TAB* 325 MG PO PRN (10:31)
[2018-08-22] MEDS ORDERED: Nicotine GUM* 2 MG PO PRN (10:31)
[2018-08-22] MEDS ORDERED: Al Hydrox/Mg Hydrox/Simet LIQ* 30 ML UDC PO PRN (10:31)
[2018-08-22] MEDS ORDERED: IBUPROFEN 200 MG PO PRN (10:32)
--- NOTE | 2018-08-22 12:57 | PN ---
ED Flex Patient Progress Note Date of Service: 08/20/18 Subjective: This is a 48 year-old M who is pending admission to [facility] / transfer to another psychiatric facility / discharge to home / or being observed secondary to psychosis. Pt. examined in bed 16 at 1255. He is lying in bed talking to self. Objective: Vitals: Most recent vital signs documented below. General NAD Laboratory: Current laboratory results documented below. Assessment: Psychosis Plan: Pending admission Vital Signs Temp Pulse Resp BP Pulse Ox 98.5 F 57 20 121/75 98 08/22/18 07:50 08/22/18 07:50 08/22/18 07:50 08/22/18 07:50 08/22/18 07:50 Lab Results - Entire Visit 08/21/18 08/21/18 08/20/18 16:25 16:25 15:55 WBC RBC Hgb Hct MCV MCH MCHC RDW Plt Count MPV Neut % (Auto) Lymph % (Auto) [place] % (Auto) Eos % (Auto) Baso % (Auto) Absolute Neuts (auto) Absolute Lymphs (auto) Absolute Monos (auto) Absolute Eos (auto) Absolute Basos (auto) Absolute Nucleated RBC Nucleated RBC % Sodium Potassium Chloride Carbon Dioxide Anion Gap BUN Creatinine Est GFR ( Amer) Est GFR (Non-Af Amer) BUN/Creatinine Ratio Glucose Lactic Acid 1.7 Calcium Total Bilirubin AST ALT Alkaline Phosphatase Total Protein Albumin Globulin Albumin/Globulin Ratio TSH Free T4 Urine Color Yellow Urine Appearance Clear Urine pH 7.0 Ur Specific [place] 1.010 Urine Protein 1+(30 mg/dl) A Urine Ketones Negative Urine Blood Negative Urine Nitrate Negative Urine Bilirubin Negative Urine Urobilinogen Positive A Ur Leukocyte Esterase Negative Urine WBC (Auto) Trace(0-5/hpf) Urine RBC (Auto) Trace(0-2/hpf) Urine Bacteria Absent Urine Glucose Negative Urine Ascorbic Acid * A Salicylates Urine Opiates Screen None detected Acetaminophen Ur Barbiturates Screen None detected Ur Phencyclidine Scrn None detected Ur Amphetamines Screen None detected U Benzodiazepines Scrn Presumptive positive A Urine Cocaine Screen None detected U Cannabinoids Screen None detected Serum Alcohol 08/20/18 08/20/18 15:55 15:55 WBC 7.5 RBC 4.39 Hgb 12.5 L Hct 37 L MCV 85 MCH 29 MCHC 34 RDW 15 Plt Count 237 MPV 6.2 L Neut % (Auto) 74.7 Lymph % (Auto) 16.9 [place] % (Auto) 4.6 Eos % (Auto) 2.8 Baso % (Auto) 1.0 Absolute Neuts (auto) 5.6 Absolute Lymphs (auto) 1.3 Absolute Monos (auto) 0.3 Absolute Eos (auto) 0.2 Absolute Basos (auto) 0.1 Absolute Nucleated RBC 0 Nucleated RBC % 0.1 Sodium 132 L Potassium 3.6 Chloride 98 L Carbon Dioxide 26 Anion Gap 8 BUN 11 Creatinine 0.81 Est GFR ( Amer) 123.6 Est GFR (Non-Af Amer) 102.1 BUN/Creatinine Ratio 13.6 Glucose 99 Lactic Acid Calcium 9.5 Total Bilirubin 0.30 AST 32 ALT 40 Alkaline Phosphatase 72 Total Protein 7.6 Albumin 4.2 Globulin 3.4 Albumin/Globulin Ratio 1.2 TSH 5.85 H Free T4 0.55 L Urine Color Urine Appearance Urine pH Ur Specific [place] Urine Protein Urine Ketones Urine Blood Urine Nitrate Urine Bilirubin Urine Urobilinogen Ur Leukocyte Esterase Urine WBC (Auto) Urine RBC (Auto) Urine Bacteria Urine Glucose Urine Ascorbic Acid Salicylates < 2.50 Urine Opiates Screen Acetaminophen < 15 Ur Barbiturates Screen Ur Phencyclidine Scrn Ur Amphetamines Screen U Benzodiazepines Scrn Urine Cocaine Screen U Cannabinoids Screen Serum Alcohol < 10
[2018-08-22] MEDS: clonazePAM TAB(*) 1 MG PO SCH ×2 (16:41→22:15)
[2018-08-22] MEDS ORDERED: OLANzapine TAB* 10 MG PO SCH ×2 (17:00→21:00)
[2018-08-22] MEDS: Sertraline* 100 MG TAB PO SCH (22:15)
[2018-08-23] MEDS: clonazePAM TAB(*) 1 MG PO SCH ×3 (09:43→20:44)
[2018-08-23] MEDS: Levothyroxine TAB* 150 MCG TAB PO SCH (09:44)
[2018-08-23] MEDS: Sertraline* 100 MG TAB PO SCH ×2 (09:44→20:45)
[2018-08-23] MEDS: risperiDONE-M * 1 MG TAB.ORADIS PO SCH ×2 (13:34→20:45)
[2018-08-23] MEDS: Nicotine PATCH 21 MG/24 HR* PATCH TRANSDERM SCH (15:34)
[2018-08-23] MEDS: Nicotine Patch Removal NOTE FOLLOW UP SCH (20:45)
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
[2018-08-24] MEDS: Nicotine PATCH 21 MG/24 HR* PATCH TRANSDERM SCH (08:55)
[2018-08-24] MEDS: Sertraline* 100 MG TAB PO SCH ×2 (08:56→20:19)
[2018-08-24] MEDS: Levothyroxine TAB* 150 MCG TAB PO SCH (08:56)
[2018-08-24] MEDS: risperiDONE-M * 1 MG TAB.ORADIS PO SCH ×2 (08:56→20:18)
[2018-08-24] MEDS: clonazePAM TAB(*) 1 MG PO SCH ×3 (08:58→20:18)
--- NOTE | 2018-08-24 13:36 | PN ---
Subjective - Subjective Service Type: [id number] Hosp care 25 min moderate complexity Subjective: patient reports staying in his room to avoid his sister, Iliana. He states he could hear that she is here and does not want to talk to her. There is no evidence that she visited. Patient is observed to respond to internal stimuli alone in his room. Noted to have ataxic gait. He agrees to MRI of brain. Objective - Appearance Appearance: Well Developed/Nourished Dysmorphic Features: No Hygiene: Normal Grooming: Fairly Well Kept - Behavior Psychomotor Activities: Normal Exhibits Abnormal Movement: No - Attitude and Relatedness Attitude and Relatedness: Psychotically Related Eye Contact: Good - Speech Quality: Unpressured Latencies: Normal Quantity: Terse - Mood Patient's Decription of Mood: "Fine" - Affect Affect Consistent with: Euthymia - Thought Process Patient's Thought Process: Circumstantial Thought Content: Yes Paranoid Ideation, No Passive Wish, No Suicidal Planning, No Homicidal Ideation - Sensorium Experiencing Hallucinations: Yes Type of Hallucinations: Visual: Yes, Auditory: Yes, Command: No - Level of Consciousness Level of Consciousness: Alert Orientation: Yes Intact, Yes Orientated to Time, Yes Orientated to Place, Yes Orientated to Person - Impulse Control Impulse Control: Poor - Insight and Judgement Insight and Judgement: Impaired - Group Participation Particating in Group Activities: No - Medication Management Medication Management Adherence: Partial Assessment - Assessment Merits Inpatient Hospitalization: For Immediate Safety, For Stabilization Inpatient DSM-V Dx: F29 Clinical Impression: 48yo wm who presented to ED one week after discharge from [facility] due to paranoid delusions. He is unable to care for himself but has no insight into psychotic symptoms. Patient merits hospitalization for immediate safety and stabilization. Plan - Plan Treatment Plan: Name: VIRY FRAUSTO Birthdate: 1970 [id number] continue acute intensive psychiatric treatment. may decrease to q30min observation and allow staff pass. increase risperidone. obtain MRI brain due to change in gait. Continued Medication Management: Different Medication Medications: Current Medications Acetaminophen (Tylenol Tab*) 650 mg PO Q4H PRN PRN Reason: for pain; or Temp >101 F Al Hydrox/Mg Hydrox/Simethicone (Maalox Plus*) 30 ml PO Q4H PRN PRN Reason: INDIGESTION Clonazepam (Klonopin Tab(*)) 1 mg PO TID [facility] Last Admin: 08/24/18 08:58 Dose: 1 mg Device (Nicotine Mouth Piece*) 1 each INH ONCE PRN PRN Reason: CRAVING Ibuprofen (Advil Tab*) 200 mg PO Q4HR PRN PRN Reason: PAIN Levothyroxine Sodium (Synthroid Tab*) 150 mcg PO DAILY@0600 [facility] Last Admin: 08/24/18 08:56 Dose: 150 mcg Nicotine (Nicotine Inhaler*) 10 mg INH Q2H PRN PRN Reason: CRAVING Nicotine (Nicotine Patch 21 Mg/24 Hr*) 1 patch TRANSDERM DAILY [facility] Last Admin: 08/24/18 08:55 Dose: 1 patch Nicotine Polacrilex (Nicotine Gum*) 2 mg PO Q2H PRN PRN Reason: CRAVING Pharmacy Profile Note (Nicotine Patch Removal Note*) 1 note FOLLOW UP 2100 [facility] Last Admin: 08/23/18 20:45 Dose: Not Given Risperidone (Risperdal-M Tab *) 2 mg PO BID [facility]; Protocol Sertraline HCl (Zoloft*) 100 mg PO BID [facility] Last Admin: 08/24/18 08:56 Dose: 100 mg - Discharge Plan Discharge Plan: Inpatient Hospitalization
[2018-08-24] MEDS: Nicotine Patch Removal NOTE FOLLOW UP SCH (20:26)
[2018-08-25] MEDS: Sertraline* 100 MG TAB PO SCH ×2 (07:50→20:20)
[2018-08-25] MEDS: Levothyroxine TAB* 150 MCG TAB PO SCH (07:50)
[2018-08-25] MEDS: clonazePAM TAB(*) 1 MG PO SCH ×3 (07:50→20:20)
[2018-08-25] MEDS: risperiDONE-M * 1 MG TAB.ORADIS PO SCH ×2 (07:50→20:19)
[2018-08-25] MEDS: Nicotine PATCH 21 MG/24 HR* PATCH TRANSDERM SCH (07:50)
--- NOTE | 2018-08-25 15:22 | PN ---
Subjective - Subjective Date of Service: 08/25/18 Service Type: 66657 Hosp care 15 min low complexity Subjective: Patient is primarily seclusive. He is overheard yelling at his sister, Iliana, who is not present. Patient refused first dose of risperidone but has since been adherent. He was cooperative with MRI. Software Development Manager left message with Dr Minor to discuss current presentation. He is out of the office until tomorrow. Objective - Appearance Appearance: Well Developed/Nourished Dysmorphic Features: No Hygiene: Normal Grooming: Fairly Well Kept - Behavior Psychomotor Activities: Normal Exhibits Abnormal Movement: No - Attitude and Relatedness Attitude and Relatedness: Withdrawn Eye Contact: Poor - Speech Quality: Unpressured Latencies: Normal Quantity: Appropriate - Mood Patient's Decription of Mood: "Fine" - Affect Observed Affect: Unvariable Affect Consistent with: Euthymia - Thought Process Patient's Thought Process: Disorganized Thought Content: Yes Paranoid Ideation, No Passive Wish, No Suicidal Planning, No Homicidal Ideation - Sensorium Experiencing Hallucinations: Yes Type of Hallucinations: Visual: Yes, Auditory: Yes, Command: No - Level of Consciousness Level of Consciousness: Alert Orientation: Yes Intact, Yes Orientated to Time, Yes Orientated to Place, Yes Orientated to Person - Impulse Control Impulse Control: Poor - Insight and Judgement Insight and Judgement: Impaired - Group Participation Particating in Group Activities: No - Medication Management Medication Management Adherence: Yes Assessment - Assessment Merits Inpatient Hospitalization: For Immediate Safety, For Stabilization Inpatient DSM-V Dx: F29 Clinical Impression: 48yo wm who presented to ED one week after discharge from [facility] due to paranoid delusions. He is unable to care for himself but has no insight into psychotic symptoms. Patient merits hospitalization for immediate safety and stabilization. Plan - Plan Treatment Plan: Name: VIRY FRAUSTO JR Birthdate: 1970 [id number] continue acute intensive psychiatric treatment. may decrease to q30min observation and allow staff pass. continue current medications. collaborate with oncologist. Continued Medication Management: Consider Medication - Long-acting injectable Medications: Current Medications Acetaminophen (Tylenol Tab*) 650 mg PO Q4H PRN PRN Reason: for pain; or Temp >101 F Al Hydrox/Mg Hydrox/Simethicone (Maalox Plus*) 30 ml PO Q4H PRN PRN Reason: INDIGESTION Clonazepam (Klonopin Tab(*)) 1 mg PO TID [facility] Last Admin: 08/25/18 14:12 Dose: 1 mg Device (Nicotine Mouth Piece*) 1 each INH ONCE PRN PRN Reason: CRAVING Ibuprofen (Advil Tab*) 200 mg PO Q4HR PRN PRN Reason: PAIN Levothyroxine Sodium (Synthroid Tab*) 150 mcg PO DAILY@0600 [facility] Last Admin: 08/25/18 07:50 Dose: 150 mcg Nicotine (Nicotine Inhaler*) 10 mg INH Q2H PRN PRN Reason: CRAVING Nicotine (Nicotine Patch 21 Mg/24 Hr*) 1 patch TRANSDERM DAILY [facility] Last Admin: 08/25/18 07:50 Dose: Not Given Nicotine Polacrilex (Nicotine Gum*) 2 mg PO Q2H PRN PRN Reason: CRAVING Pharmacy Profile Note (Nicotine Patch Removal Note*) 1 note FOLLOW UP 2100 [facility] Last Admin: 08/24/18 20:26 Dose: 1 note Risperidone (Risperdal-M Tab *) 2 mg PO BID [facility]; Protocol Last Admin: 08/25/18 07:50 Dose: 2 mg Sertraline HCl (Zoloft*) 100 mg PO BID [facility] Last Admin: 08/25/18 07:50 Dose: 100 mg - Discharge Plan Discharge Plan: Inpatient Hospitalization
[2018-08-26] MEDS: Levothyroxine TAB* 150 MCG TAB PO SCH (05:50)
[2018-08-26] MEDS: Sertraline* 100 MG TAB PO SCH ×2 (07:05→20:09)
[2018-08-26] MEDS: risperiDONE-M * 1 MG TAB.ORADIS PO SCH (07:05)
[2018-08-26] MEDS: clonazePAM TAB(*) 1 MG PO SCH ×3 (07:05→20:09)
[2018-08-26 08:26] LABS: ABS Basophils 0.1 10^3/ul (0-0.2); ABS Eosinophils 0.4 10^3/ul (0-0.6); ABS Monocytes 0.3 10^3/ul (0-0.8); ABS Neutrophils 6.1 10^3/ul (1.5-7.7); ABS Nucleated RBC 0 10^3/ul; Eosinophil % 5.6 %; Hematocrit 40 % (42-52); Hemoglobin 13.4 g/dl (14.0-18.0); Lymphocyte % 13.1 %; Mean Corpuscular HGB Conc 33 g/dl (31-36); Mean Corpuscular Hemoglobin 28 pg (27-31); Mean Corpuscular Volume 85 fL (80-94); Nucleated Red Blood Cells % 0; Platelet Count 213 10^3/ul (150-450); Red Blood Count 4.74 10^6/ul (4.00-5.40); Red Cell Distribution Width 15 % (10.5-15)
[2018-08-26] MEDS: Nicotine PATCH 21 MG/24 HR* PATCH TRANSDERM SCH (12:48)
[2018-08-26] MEDS: Nicotine Patch Removal NOTE FOLLOW UP SCH ×2 (12:48→20:09)
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
[2018-08-26] MEDS: Paliperidone ER TAB* 6 MG TAB.ER PO SCH (20:12)
[2018-08-27] MEDS: clonazePAM TAB(*) 1 MG PO SCH ×3 (08:41→21:05)
[2018-08-27] MEDS: Levothyroxine TAB* 150 MCG TAB PO SCH (08:42)
[2018-08-27] MEDS: Nicotine PATCH 21 MG/24 HR* PATCH TRANSDERM SCH (08:42)
[2018-08-27] MEDS: Sertraline* 100 MG TAB PO SCH ×2 (08:42→21:05)
[2018-08-27] MEDS: Nicotine Patch Removal NOTE FOLLOW UP SCH (21:05)
[2018-08-27] MEDS: Paliperidone ER TAB* 6 MG TAB.ER PO SCH (21:05)
[2018-08-28] MEDS: Levothyroxine TAB* 150 MCG TAB PO SCH (10:01)
[2018-08-28] MEDS: clonazePAM TAB(*) 1 MG PO SCH ×4 (10:01→21:08)
[2018-08-28] MEDS: Sertraline* 100 MG TAB PO SCH ×2 (10:01→21:08)
[2018-08-28] MEDS: Nicotine PATCH 21 MG/24 HR* PATCH TRANSDERM SCH (10:03)
[2018-08-28] MEDS ORDERED: LORazepam TAB(*) 1 MG PO PRN (14:39)
--- NOTE | 2018-08-28 16:26 | PN ---
Subjective - Subjective Date of Service: 08/28/18 Subjective: "I am still here!" Viry remains seclusive to his room, found in bed, remains grossly delusional "I have a bomb in my chest!" He denies A/VH or SI/HI or side effects from prescribed meds. Objective - Appearance Appearance: Healthy Appearing Dysmorphic Features: No Hygiene: Normal Grooming: Disheveled - Behavior Psychomotor Activities: Abnormal-Decreased Exhibits Abnormal Movement: No - Attitude and Relatedness Attitude and Relatedness: Psychotically Related Eye Contact: Poor - Speech Quality: Unpressured Latencies: Normal Quantity: Terse - Mood Patient's Decription of Mood: "Okay" - Affect Observed Affect: Unvariable Affect Consistent with: Dysphoria - Thought Process Patient's Thought Process: Disorganized, Tangential Thought Content: Yes Paranoid Ideation, No Passive Wish, No Suicidal Planning, No Homicidal Ideation - Sensorium Experiencing Hallucinations: No, Sensorium is Clear Type of Hallucinations: Visual: No, Auditory: No, Command: No - Level of Consciousness Level of Consciousness: Alert Orientation: Yes Intact - Impulse Control Impulse Control: Intact - Insight and Judgement Insight and Judgement: Impaired - Group Participation Particating in Group Activities: No - Medication Management Medication Management Adherence: Yes Assessment - Assessment Merits Inpatient Hospitalization: Consolidate Improvements, For Discharge Planning Inpatient DSM-V Dx: F29 Clinical Impression: 48yo wm who presented to ED one week after discharge from [facility] due to paranoid delusions. He is unable to care for himself but has no insight into psychotic symptoms. Patient merits hospitalization for immediate safety and stabilization. Ongoing impairing psychotic symptoms, needs continued inpatient treatment for stabilization. Plan - Plan Treatment Plan: Name: VIRY FRAUSTO JR Birthdate: 1970 [id number] continue acute intensive psychiatric treatment. may decrease to q30min observation and allow staff pass. change risperidone to paliperidone, consider MCKEON with patient consent. collaborate with oncologist discharge planning to include APS and outpatient providers. Medications: Current Medications Acetaminophen (Tylenol Tab*) 650 mg PO Q4H PRN PRN Reason: for pain; or Temp >101 F Al Hydrox/Mg Hydrox/Simethicone (Maalox Plus*) 30 ml PO Q4H PRN PRN Reason: INDIGESTION Clonazepam (Klonopin Tab(*)) 1 mg PO TID [facility] Last Admin: 08/28/18 15:52 Dose: 1 mg Device (Nicotine Mouth Piece*) 1 each INH ONCE PRN PRN Reason: CRAVING Ibuprofen (Advil Tab*) 200 mg PO Q4HR PRN PRN Reason: PAIN Levothyroxine Sodium (Synthroid Tab*) 150 mcg PO DAILY@0600 [facility] Last Admin: 08/28/18 10:01 Dose: 150 mcg Lorazepam (Ativan Tab(*)) 1 mg PO Q6H PRN PRN Reason: ANXIETY Nicotine (Nicotine Inhaler*) 10 mg INH Q2H PRN PRN Reason: CRAVING Nicotine (Nicotine Patch 21 Mg/24 Hr*) 1 patch TRANSDERM DAILY [facility] Last Admin: 08/28/18 10:03 Dose: Not Given Nicotine Polacrilex (Nicotine Gum*) 2 mg PO Q2H PRN PRN Reason: CRAVING Paliperidone (Invega Er Tab*) 6 mg PO BEDTIME [facility] Last Admin: 08/27/18 21:05 Dose: 6 mg Pharmacy Profile Note (Nicotine Patch Removal Note*) 1 note FOLLOW UP 2100 [facility] Last Admin: 08/27/18 21:05 Dose: Not Given Sertraline HCl (Zoloft*) 100 mg PO BID [facility] Last Admin: 08/28/18 10:01 Dose: 100 mg - Discharge Plan Discharge Plan: Outpatient Follow Up Outpatient Program: [facility]
[2018-08-28] MEDS: Paliperidone ER TAB* 6 MG TAB.ER PO SCH (21:14)
[2018-08-28] MEDS: Nicotine Patch Removal NOTE FOLLOW UP SCH (21:17)
[2018-08-29] MEDS: Levothyroxine TAB* 150 MCG TAB PO SCH (07:34)
[2018-08-29] MEDS: Nicotine PATCH 21 MG/24 HR* PATCH TRANSDERM SCH (07:37)
[2018-08-29] MEDS: clonazePAM TAB(*) 1 MG PO SCH ×3 (08:50→21:42)
[2018-08-29] MEDS: Sertraline* 100 MG TAB PO SCH ×2 (08:50→21:43)
--- NOTE | 2018-08-29 14:57 | PN ---
Subjective - Subjective Date of Service: 08/29/18 Service Type: 97024 Hosp care 15 min low complexity Subjective: Viry "Kys" continues to endorse hallucinations of his sister being present on the unit. He reports having a "radiation bomb" in his body that is being absorbed. He gives telegraphic typewriter repairer permission to discuss treatment planning with Inocencia , his friend and health care proxy. County Director phones Inocencia at [phone]. She reports Viry has always been a concrete thinker with rigid ideas. She states he has been trying to mask psychotic symptoms moreso in the past year. She states he has grandiose ideas of living with her or having a trailer on her property but that she is not able to provide these. Also, [facility] are no longer accepting him as a client. She states she is planning to be in [place] tomorrow and can meet with providers and patient. Objective - Appearance Dysmorphic Features: No Hygiene: Normal Grooming: Fairly Well Kept - Behavior Psychomotor Activities: Normal Exhibits Abnormal Movement: No - Attitude and Relatedness Attitude and Relatedness: Psychotically Related Eye Contact: Fair - Speech Quality: Unpressured Latencies: Normal Quantity: Copious - Mood Patient's Decription of Mood: "Okay" - Affect Observed Affect: Depressed Affect Consistent with: Dysphoria - Thought Process Patient's Thought Process: Disorganized Thought Content: Yes Paranoid Ideation, No Passive Wish, No Suicidal Planning, No Homicidal Ideation - Sensorium Experiencing Hallucinations: Yes Type of Hallucinations: Visual: Yes, Auditory: Yes, Command: No - Level of Consciousness Level of Consciousness: Alert Orientation: Yes Intact, Yes Orientated to Time, Yes Orientated to Place, Yes Orientated to Person - Impulse Control Impulse Control: Poor - Insight and Judgement Insight and Judgement: Impaired - Group Participation Particating in Group Activities: No - Medication Management Medication Management Adherence: Yes Assessment - Assessment Merits Inpatient Hospitalization: For Immediate Safety, For Stabilization, For Ongoing Evaluation, Pending Safe DC Plan Inpatient DSM-V Dx: F29 Clinical Impression: 48yo wm who presented to ED one week after discharge from [facility] due to paranoid delusions. He is unable to care for himself but has no insight into psychotic symptoms. Patient merits hospitalization for immediate safety and stabilization. Ongoing impairing psychotic symptoms, needs continued inpatient treatment for stabilization. Plan - Plan Treatment Plan: Name: VIRY FRAUSTO JR Birthdate: 1970 [id number] continue acute intensive psychiatric treatment. may decrease to q30min observation and allow staff pass. increase paliperidone, consider MCKEON with patient consent. collaborate with oncologist discharge planning to include APS and outpatient providers. Continued Medication Management: Different Medication Medications: Current Medications Acetaminophen (Tylenol Tab*) 650 mg PO Q4H PRN PRN Reason: for pain; or Temp >101 F Al Hydrox/Mg Hydrox/Simethicone (Maalox Plus*) 30 ml PO Q4H PRN PRN Reason: INDIGESTION Clonazepam (Klonopin Tab(*)) 1 mg PO TID [facility] Last Admin: 08/29/18 13:53 Dose: 1 mg Device (Nicotine Mouth Piece*) 1 each INH ONCE PRN PRN Reason: CRAVING Ibuprofen (Advil Tab*) 200 mg PO Q4HR PRN PRN Reason: PAIN Levothyroxine Sodium (Synthroid Tab*) 150 mcg PO DAILY@0600 [facility] Last Admin: 08/29/18 07:34 Dose: 150 mcg Lorazepam (Ativan Tab(*)) 1 mg PO Q6H PRN PRN Reason: ANXIETY Nicotine (Nicotine Inhaler*) 10 mg INH Q2H PRN PRN Reason: CRAVING Nicotine (Nicotine Patch 21 Mg/24 Hr*) 1 patch TRANSDERM DAILY [facility] Last Admin: 08/29/18 07:37 Dose: Not Given Nicotine Polacrilex (Nicotine Gum*) 2 mg PO Q2H PRN PRN Reason: CRAVING Paliperidone (Invega Er Tab*) 9 mg PO BEDTIME [facility] Pharmacy Profile Note (Nicotine Patch Removal Note*) 1 note FOLLOW UP 2100 [facility] Last Admin: 08/28/18 21:17 Dose: Not Given Sertraline HCl (Zoloft*) 100 mg PO BID [facility] Last Admin: 08/29/18 08:50 Dose: 100 mg - Discharge Plan Discharge Plan: Inpatient Hospitalization
[2018-08-29] MEDS: Paliperidone ER TAB* 9 MG TAB.ER PO SCH (21:43)
[2018-08-29] MEDS: Nicotine Patch Removal NOTE FOLLOW UP SCH (22:42)
[2018-08-30] MEDS ORDERED: PPD test dose* 5 TU/0.1 ML TEST (*USE PPD ORDER SET*) INTRADERM SCH (09:30)
[2018-08-30] MEDS: Sertraline* 100 MG TAB PO SCH (10:17)
[2018-08-30] MEDS: Nicotine PATCH 21 MG/24 HR* PATCH TRANSDERM SCH (10:17)
[2018-08-30] MEDS: Levothyroxine TAB* 150 MCG TAB PO SCH (10:17)
[2018-08-30] MEDS: clonazePAM TAB(*) 1 MG PO SCH ×2 (10:17→14:25)
[2018-08-30] MEDS: Nicotine Patch Removal NOTE FOLLOW UP SCH (23:30)
[2018-08-31] MEDS: Paliperidone ER TAB* 9 MG TAB.ER PO SCH ×2 (02:15→22:03)
[2018-08-31] MEDS: clonazePAM TAB(*) 1 MG PO SCH ×4 (02:15→22:03)
[2018-08-31] MEDS: Sertraline* 100 MG TAB PO SCH ×3 (02:15→22:03)
[2018-08-31] MEDS: Ibuprofen TAB* 200 MG PO PRN (04:30)
[2018-08-31] MEDS ORDERED: Ibuprofen TAB* 400 MG ONE (04:32)
[2018-08-31] MEDS: Levothyroxine TAB* 150 MCG TAB PO SCH (07:51)
[2018-08-31] MEDS: Nicotine PATCH 21 MG/24 HR* PATCH TRANSDERM SCH (07:53)
[2018-08-31] MEDS ORDERED: Tuberculin PPD* 5 TU/DOSE/0.1 ML INTRADERM ONE (09:00)
--- NOTE | 2018-08-31 11:02 | PN ---
Subjective - Subjective Date of Service: 08/30/18 Service Type: 22586 Hosp care 35 min high complexity Subjective: Patient gait is unstable and he attempts to ambulate independently. He is noted to have difficulty initiating steps, particularly with his right leg. Patient's friend, Inocencia, present for treatment planning. She is noted to be supportive and patient is receptive to her suggestions. During meeting patient reports he can read minds of various people, that his heart has "stims" and these are making it bleed. He refers to a "ticking radiation bomb" in his throat. He states that his sister and Hunter were present on the unit this morning. Patient agrees to referral to [facility]. We discussed waiting to place referral until patient is psychiatric and medically stabilized. Rick allows race and sports book writer to give his apartment kennedy to Inocencia. Inocencia's email: [email or web address] Assessment - Assessment Inpatient DSM-V Dx: F29 Clinical Impression: 48yo wm who presented to ED one week after discharge from [facility] due to paranoid delusions. He is unable to care for himself but has no insight into psychotic symptoms. Patient merits hospitalization for immediate safety and stabilization. Ongoing impairing psychotic symptoms, needs continued inpatient treatment for stabilization. Plan - Plan Treatment Plan: Name: RICK FRAUSTO JR Birthdate: 1970 [id number] continue acute intensive psychiatric treatment. increase to q15min obs due to fall risk increase paliperidone, consider MCKEON with patient consent. collaborate with oncologist discharge planning to include APS and outpatient providers. Medications: Current Medications Acetaminophen (Tylenol Tab*) 650 mg PO Q4H PRN PRN Reason: for pain; or Temp >101 F Al Hydrox/Mg Hydrox/Simethicone (Maalox Plus*) 30 ml PO Q4H PRN PRN Reason: INDIGESTION Clonazepam (Klonopin Tab(*)) 1 mg PO TID [facility] Last Admin: 08/31/18 07:52 Dose: 1 mg Device (Nicotine Mouth Piece*) 1 each INH ONCE PRN PRN Reason: CRAVING Ibuprofen (Advil Tab*) 200 mg PO Q4HR PRN PRN Reason: PAIN Last Admin: 08/31/18 04:30 Dose: 200 mg Levothyroxine Sodium (Synthroid Tab*) 150 mcg PO DAILY@0600 [facility] Last Admin: 08/31/18 07:51 Dose: 150 mcg Lorazepam (Ativan Tab(*)) 1 mg PO Q6H PRN PRN Reason: ANXIETY Nicotine (Nicotine Inhaler*) 10 mg INH Q2H PRN PRN Reason: CRAVING Nicotine (Nicotine Patch 21 Mg/24 Hr*) 1 patch TRANSDERM DAILY [facility] Last Admin: 08/31/18 07:53 Dose: Not Given Nicotine Polacrilex (Nicotine Gum*) 2 mg PO Q2H PRN PRN Reason: CRAVING Paliperidone (Invega Er Tab*) 9 mg PO BEDTIME [facility] Last Admin: 08/31/18 02:15 Dose: 9 mg Pharmacy Profile Note (Nicotine Patch Removal Note*) 1 note FOLLOW UP 2099 [facility] Last Admin: 08/30/18 23:30 Dose: Not Given Pharmacy Profile Note (Ppd Reading Note*) 1 note .SEE ORDER .ONCE [facility] Stop: 09/02/18 10:01 Sertraline HCl (Zoloft*) 100 mg PO BID [facility] Last Admin: 08/31/18 07:52 Dose: 100 mg - Discharge Plan Discharge Plan: Inpatient Hospitalization
--- NOTE | 2018-08-31 11:35 | PN ---
Progress Note - Progress Note Date of Service: 08/21/18 - Late Entry Note. Note: This 48 y/o male was brought into the [facility] ED by law enforcement due to acute mental status change and he was complaining that his neighbors have been trying to cut into his house by a chainsaw and he was extremely fearful. This patient has a h/o brain cancer ( not confirmed by evidence ). However, he was distressed with the paranoia and we decided to admit him to [facility] for his safety, diagnostic clarification and stabilization of acute symptoms.
[2018-08-31] MEDS ORDERED: PPD test dose* 5 TU/0.1 ML TEST (*USE PPD ORDER SET*) INTRADERM ONE (12:00)
--- NOTE | 2018-08-31 16:25 | PN ---
MHU: Group Therapy Note - Service Type Service Type: [id number] Group Psychotherapy - Medication Education Group: Patient attended group and presented with flat affect that did not vary with discussion. Although responsive to direct prompts to respond to questions, patient did not engage in spontaneous conversation.
[2018-08-31] MEDS: Nicotine Patch Removal NOTE FOLLOW UP SCH (22:03)
--- NOTE | 2018-08-31 22:36 | CONS ---
MEDICAL ONCOLOGY CONSULTATION NOTE: DATE OF ADMISSION: 08/22/18 DATE OF CONSULT: 08/31/18 ATTENDING PHYSICIAN: REASON FOR CONSULT: Followup of metastatic lung carcinoma. HISTORY OF PRESENT ILLNESS: Rick Mcgovern is a 48-year-old male known to our office since March 2016. At that time, he had presented with a medial rectus muscle paralysis with oculomotor palsy along with headaches and change in vision. MRI scan of the brain revealed multiple tiny enhancing nodules throughout both cerebellar hemispheres and cerebral hemispheres as well. This was felt to be most consistent with metastatic carcinoma. Initially, no abnormalities were noted on CT scan. There was hilar adenopathy, which appeared to be a conglomeration of small lymph nodes all normal size. He was referred to Neurosurgery in [place]. After an extensive workup by Neurosurgery there, a lumbar puncture was performed, which was not significant findings. Repeat MRI in [place] revealed a slight enlargement of these lesions. He underwent a craniotomy with biopsy of the left frontal mass, which revealed poorly differentiated metastatic adenocarcinoma, felt highly like to be of lung origin. He was treated with radiation therapy in June 2016. He subsequently had gamma knife in September 2016 for progression to the brainstem. Given the small amount of disease in the chest, a decision was made to hold off on any systemic therapy. PET scan in August 2016 revealed hypermetabolic lymph nodes which were unchanged in size. He did have complications with a CSF leak from the original biopsies in the scalp, but they slowly slowed down. The patient developed a progression with significant growth in the neck with large mass seen. It was strikingly PD-L1 positive at 90%. He, therefore, was started on pembrolizumab immunotherapy in January 2017. He had a marked improvement in terms of the lesions in the neck, which totally disappeared. He never developed any significant adenopathy in the chest. 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 He continued on pembrolizumab immunotherapy for a total of 19 cycles through mid 2017. Most recently, he has had a CT scan of the neck, chest, and abdomen without any signs of any recurrent disease. Just several months ago, an MRI of the brain obtained with this admission reveals no evidence for any progression or of any significant vasogenic edema. He has had multiple hospitalizations over time for psychiatric reasons including the current admission. He is a patient of long standing and well- known patient to the psychiatric service. His current living situation was at [facility] and concern is raised as to whether he will be able to return to his previous living situation or whether he needs a more supervised setting. He had lived not too long ago with his sister, but that relationship does not appear to be a viable one for his current living. PAST MEDICAL HISTORY: Otherwise, significant for: 1. Asthma. 2. Depression. 3. Hemorrhoids. PAST SURGICAL HISTORY: No previous surgeries other than biopsies and a craniotomy as discussed above. MEDICATIONS: 1. Clonazepam. 2. Decadron. 3. Levothyroxine. 4. Sertraline. ALLERGIES: None. FAMILY HISTORY: Mother of colon cancer. Father with DVT. Brother from lung cancer. SOCIAL HISTORY: Daily smoker. Former drinker. Single. Has reasonable support system, but not great support system in place. REVIEW OF SYSTEMS: Psychiatric, as noted in the admission history and physical and subsequent notes. Significant problems with paranoia and delusions. Denies any headaches or any further changes in vision, continues to wear an eye patch due to diplopia. Appetite has been good. Weight stable. No significant shortness of breath, chest pain, or palpitations. No significant recent infections. No significant change with bowel or bladder habits. PHYSICAL EXAM: A 48-year-old male in no acute distress. Vital Signs: Stable. HEENT: Decreased range of motion of the extraocular muscles with a dysconjugate gaze and eye patch over the left eye. Tongue is slightly coated. No scleral icterus. No erythema or exudates. Neck: No palpable cervical, supraclavicular or axillary adenopathy. Lungs: Occasional wheeze. Heart: Regular rate and rhythm without murmurs, rubs, or gallops. Abdomen: Soft, nontender without masses or organomegaly. Extremities: No edema. Neurologic Exam: Outside of the cranial nerve findings of decreased visual acuity and decreased extraocular motions, cranial nerves are intact. Motor is 5/5 throughout. IMPRESSION: A 48-year-old male with history of metastatic adenocarcinoma of the lung, PD-L1 positive, status post whole brain radiation therapy, subsequent gamma knife, and subsequent pembrolizumab immunotherapy. He has been off therapy for many months. His disease has been stable without any progression noted in the chest, neck, and specifically no significant current active disease in the brain. He will need to be watched carefully in terms of these areas as he is at high risk for recurrence, but has done better than expected since the time of original diagnosis over 2 years ago when he had multiple brain metastases. At the present time, oncology followup should be approximately every 2 to 3 months with repeat imaging of the brain every 3 months and systemically every 6 months or so. [id number]/[facility] #: [id number] [facility] CENTERShelia
[2018-09-01] MEDS: Levothyroxine TAB* 150 MCG TAB PO SCH (07:52)
[2018-09-01] MEDS: clonazePAM TAB(*) 1 MG PO SCH ×3 (07:52→22:53)
[2018-09-01] MEDS: Sertraline* 100 MG TAB PO SCH ×2 (07:52→22:53)
[2018-09-01] MEDS: Nicotine PATCH 21 MG/24 HR* PATCH TRANSDERM SCH (07:54)
[2018-09-01] MEDS: Paliperidone ER TAB* 9 MG TAB.ER PO SCH (22:53)
[2018-09-01] MEDS: Nicotine Patch Removal NOTE FOLLOW UP SCH (23:04)
[2018-09-02] MEDS ORDERED: PPD Reading 48-72 HRS NOTE SCH (06:00)
[2018-09-02] MEDS: Sertraline* 100 MG TAB PO SCH ×2 (07:04→20:52)
[2018-09-02] MEDS: Levothyroxine TAB* 150 MCG TAB PO SCH (07:04)
[2018-09-02] MEDS: clonazePAM TAB(*) 1 MG PO SCH ×3 (07:05→20:52)
[2018-09-02] MEDS ORDERED: PPD Reading NOTE* (*USE PPD ORDER SET*) SCH (10:00)
[2018-09-02] MEDS: Nicotine PATCH 21 MG/24 HR* PATCH TRANSDERM SCH (11:24)
--- NOTE | 2018-09-02 16:23 | PN ---
Subjective - Subjective Date of Service: 09/02/18 Service Type: 35415 Hosp care 15 min low complexity Subjective: Patient sleeping upon approach. Per staff, he has been irritable and demanding to allowed to leave. He states we are preventing him from surgery to remove the "radiation bomb" in his body. [employer] Attendant corresponded with his HCP, Inocencia to update on status and treatment planning. Objective - Appearance Appearance: Well Developed/Nourished Dysmorphic Features: No Hygiene: Normal Grooming: Fairly Well Kept - Behavior Psychomotor Activities: Abnormal-Increased - tremor, gait disturbance - Attitude and Relatedness Attitude and Relatedness: Psychotically Related Eye Contact: Fair - Speech Quality: Unpressured Latencies: Normal Quantity: Terse - Mood Patient's Decription of Mood: "Okay" - Affect Observed Affect: Depressed Affect Consistent with: Dysphoria - Thought Process Patient's Thought Process: Disorganized, Impoverished Thought Content: Yes Paranoid Ideation, No Passive Wish, No Suicidal Planning, No Homicidal Ideation - Sensorium Experiencing Hallucinations: Yes Type of Hallucinations: Visual: Yes, Auditory: Yes, Command: No - Level of Consciousness Level of Consciousness: Alert Orientation: Yes Intact, Yes Orientated to Time, Yes Orientated to Place, Yes Orientated to Person - Impulse Control Impulse Control: Poor - Insight and Judgement Insight and Judgement: Impaired - Group Participation Particating in Group Activities: No - Medication Management Medication Management Adherence: Yes Assessment - Assessment Merits Inpatient Hospitalization: For Immediate Safety, For Stabilization, For Ongoing Evaluation Inpatient DSM-V Dx: F29 Clinical Impression: 48yo wm who presented to ED one week after discharge from [facility] due to paranoid delusions. He is unable to care for himself but has no insight into psychotic symptoms. Patient merits hospitalization for immediate safety and stabilization. Ongoing impairing psychotic symptoms, needs continued inpatient treatment for stabilization. Plan - Plan Treatment Plan: Name: VIRY FRAUSTO JR Birthdate: 1970 [id number] continue acute intensive psychiatric treatment. increase to q15min obs due to fall risk convert to 2PC status. increase paliperidone, consider MCKEON with patient consent. refer to [facility]. Medications: Current Medications Acetaminophen (Tylenol Tab*) 650 mg PO Q4H PRN PRN Reason: for pain; or Temp >101 F Al Hydrox/Mg Hydrox/Simethicone (Maalox Plus*) 30 ml PO Q4H PRN PRN Reason: INDIGESTION Clonazepam (Klonopin Tab(*)) 1 mg PO TID [facility] Last Admin: 09/02/18 14:51 Dose: Not Given Device (Nicotine Mouth Piece*) 1 each INH ONCE PRN PRN Reason: CRAVING Ibuprofen (Advil Tab*) 200 mg PO Q4HR PRN PRN Reason: PAIN Last Admin: 08/31/18 04:30 Dose: 200 mg Levothyroxine Sodium (Synthroid Tab*) 150 mcg PO DAILY@0600 [facility] Last Admin: 09/02/18 07:04 Dose: 150 mcg Lorazepam (Ativan Tab(*)) 1 mg PO Q6H PRN PRN Reason: ANXIETY Nicotine (Nicotine Inhaler*) 10 mg INH Q2H PRN PRN Reason: CRAVING Nicotine (Nicotine Patch 21 Mg/24 Hr*) 1 patch TRANSDERM DAILY [facility] Last Admin: 09/02/18 11:24 Dose: Not Given Nicotine Polacrilex (Nicotine Gum*) 2 mg PO Q2H PRN PRN Reason: CRAVING Paliperidone (Invega Er Tab*) 12 mg PO BEDTIME [facility] Pharmacy Profile Note (Nicotine Patch Removal Note*) 1 note FOLLOW UP 2100 [facility] Last Admin: 09/01/18 23:04 Dose: Not Given Pharmacy Profile Note (Ppd Reading Note*) 1 note .SEE ORDER .ONCE [facility] Stop: 09/02/18 23:59 Sertraline HCl (Zoloft*) 100 mg PO BID [facility] Last Admin: 09/02/18 07:04 Dose: 100 mg - Discharge Plan Discharge Plan: Consider Longer Term Tx
[2018-09-02] MEDS: Nicotine Patch Removal NOTE FOLLOW UP SCH (20:52)
[2018-09-02] MEDS: Paliperidone ER TAB* 6 MG TAB.ER PO SCH (20:52)
[2018-09-03] MEDS: Levothyroxine TAB* 150 MCG TAB PO SCH (06:07)
[2018-09-03] MEDS: Sertraline* 100 MG TAB PO SCH ×2 (11:42→22:36)
[2018-09-03] MEDS: clonazePAM TAB(*) 1 MG PO SCH ×3 (11:42→22:34)
[2018-09-03] MEDS: Nicotine PATCH 21 MG/24 HR* PATCH TRANSDERM SCH (11:42)
[2018-09-03] MEDS: Nicotine Patch Removal NOTE FOLLOW UP SCH (22:23)
[2018-09-03] MEDS: Paliperidone ER TAB* 6 MG TAB.ER PO SCH (22:36)
[2018-09-04] MEDS: Levothyroxine TAB* 150 MCG TAB PO SCH (10:39)
[2018-09-04] MEDS: Sertraline* 100 MG TAB PO SCH ×2 (10:40→22:13)
[2018-09-04] MEDS: Nicotine PATCH 21 MG/24 HR* PATCH TRANSDERM SCH (10:45)
[2018-09-04] MEDS: clonazePAM TAB(*) 1 MG PO SCH ×3 (10:47→22:13)
[2018-09-04] MEDS: Ibuprofen TAB* 200 MG PO PRN (10:48)
[2018-09-04] MEDS: Paliperidone ER TAB* 6 MG TAB.ER PO SCH ×2 (22:13→22:22)
[2018-09-04] MEDS: Nicotine Patch Removal NOTE FOLLOW UP SCH (22:16)
[2018-09-05] MEDS: clonazePAM TAB(*) 1 MG PO SCH ×3 (09:45→20:05)
[2018-09-05] MEDS: Sertraline* 100 MG TAB PO SCH ×2 (09:46→20:05)
[2018-09-05] MEDS: Levothyroxine TAB* 150 MCG TAB PO SCH (09:46)
[2018-09-05] MEDS: Nicotine PATCH 21 MG/24 HR* PATCH TRANSDERM SCH (10:26)
--- NOTE | 2018-09-05 11:42 | PN ---
Subjective - Subjective Date of Service: 09/05/18 Service Type: 87119 Hosp care 25 min moderate complexity Subjective: Patient voices need for surgery to have "needle bomb" removed from his chest. We discuss need for continued stabilization and referral to [facility]. Patient stated agreement and spoke with [facility] to give clearance for referral. Patient encouraged to utilize walker moreso than wheelchair to improve strength. Also encouraged to be cautious to prevent falls. Per staff, patient is observed to respond to internal stimuli but justifies behavior. Objective - Appearance Appearance: Well Developed/Nourished Dysmorphic Features: Yes Hygiene: Normal Grooming: Fairly Well Kept - Behavior Psychomotor Activities: Abnormal-Increased - bilat tremors, unsteady gait - Attitude and Relatedness Attitude and Relatedness: Psychotically Related Eye Contact: Fair - Speech Quality: Unpressured Latencies: Short Quantity: Terse - Mood Patient's Decription of Mood: "Okay" - Affect Observed Affect: Depressed Affect Consistent with: Dysphoria - Thought Process Patient's Thought Process: Impoverished Thought Content: Yes Paranoid Ideation, No Passive Wish, No Suicidal Planning, No Homicidal Ideation - Sensorium Experiencing Hallucinations: Yes Type of Hallucinations: Visual: No, Auditory: Yes, Command: No - Level of Consciousness Level of Consciousness: Alert Orientation: Yes Intact, Yes Orientated to Time, Yes Orientated to Place, Yes Orientated to Person - Impulse Control Impulse Control: Poor - Insight and Judgement Insight and Judgement: Impaired - Group Participation Particating in Group Activities: No - Medication Management Medication Management Adherence: Yes Assessment - Assessment Merits Inpatient Hospitalization: For Immediate Safety, For Stabilization Inpatient DSM-V Dx: F29 Clinical Impression: 48yo wm who presented to ED one week after discharge from [facility] due to paranoid delusions. Patient is medication compliant. He continues to exhibit ongoing impairing psychotic symptoms, needs continued inpatient treatment for stabilization. Plan - Plan Treatment Plan: Name: VIRY FRAUSTO JR Birthdate: 1970 [id number] continue acute intensive psychiatric treatment. continue q15min obs due to fall risk, may allow staff pass. convert to 2PC status. decrease clonazepam dose. continue paliperidone, consider MCKEON with patient consent. refer to [facility]. Continued Medication Management: Different Medication Medications: Current Medications Acetaminophen (Tylenol Tab*) 650 mg PO Q4H PRN PRN Reason: for pain; or Temp >101 F Al Hydrox/Mg Hydrox/Simethicone (Maalox Plus*) 30 ml PO Q4H PRN PRN Reason: INDIGESTION Device (Nicotine Mouth Piece*) 1 each INH ONCE PRN PRN Reason: CRAVING Ibuprofen (Advil Tab*) 200 mg PO Q4HR PRN PRN Reason: PAIN Last Admin: 09/04/18 10:48 Dose: 200 mg Levothyroxine Sodium (Synthroid Tab*) 150 mcg PO DAILY@0600 [facility] Last Admin: 09/05/18 09:46 Dose: 150 mcg Lorazepam (Ativan Tab(*)) 1 mg PO Q6H PRN PRN Reason: ANXIETY Nicotine (Nicotine Inhaler*) 10 mg INH Q2H PRN PRN Reason: CRAVING Nicotine (Nicotine Patch 21 Mg/24 Hr*) 1 patch TRANSDERM DAILY [facility] Last Admin: 09/05/18 10:26 Dose: Not Given Nicotine Polacrilex (Nicotine Gum*) 2 mg PO Q2H PRN PRN Reason: CRAVING Paliperidone (Invega Er Tab*) 12 mg PO BEDTIME [facility] Last Admin: 09/04/18 22:22 Dose: Not Given Pharmacy Profile Note (Nicotine Patch Removal Note*) 1 note FOLLOW UP 2100 [facility] Last Admin: 09/04/18 22:16 Dose: Not Given Sertraline HCl (Zoloft*) 100 mg PO BID [facility] Last Admin: 09/05/18 09:46 Dose: 100 mg - Discharge Plan Discharge Plan: Consider Longer Term Tx
[2018-09-05] MEDS: Paliperidone ER TAB* 6 MG TAB.ER PO SCH ×2 (20:05→20:09)
[2018-09-05] MEDS: Nicotine Patch Removal NOTE FOLLOW UP SCH (21:13)
[2018-09-06] MEDS: Nicotine PATCH 21 MG/24 HR* PATCH TRANSDERM SCH (08:13)
[2018-09-06] MEDS: Sertraline* 100 MG TAB PO SCH ×2 (08:13→20:46)
[2018-09-06] MEDS: Levothyroxine TAB* 150 MCG TAB PO SCH (08:14)
[2018-09-06] MEDS: clonazePAM TAB(*) 1 MG PO SCH ×3 (08:14→20:45)
[2018-09-06] MEDS ORDERED: Paliperidone SUSTENNA* 234 MG/1.5 ML IM ONE (10:09)
--- NOTE | 2018-09-06 10:14 | PN ---
Subjective - Subjective Date of Service: 09/06/18 Service Type: 13589 Hosp care 25 min moderate complexity Subjective: Patient states his mood is "good" and [facility]. He states he was told he will be transferred tomorrow. Informed that a referral is being sent but that it could be 1-2 weeks for a bed available. Patient encouraged to utilize walker moreso than wheelchair. Objective - Appearance Appearance: Well Developed/Nourished Dysmorphic Features: Yes Hygiene: Dirty Grooming: Disheveled - Behavior Psychomotor Activities: Abnormal-Decreased - slow gait with walker - Attitude and Relatedness Attitude and Relatedness: Psychotically Related Eye Contact: Fair - Speech Quality: Unpressured Latencies: Normal Quantity: Terse - Mood Patient's Decription of Mood: "Good" - Affect Observed Affect: Good Affect Consistent with: Euthymia - Thought Process Patient's Thought Process: Disorganized, Impoverished Thought Content: Yes Paranoid Ideation, No Passive Wish, No Suicidal Planning, No Homicidal Ideation - Sensorium Experiencing Hallucinations: Yes Type of Hallucinations: Visual: No, Auditory: Yes, Command: No - Level of Consciousness Level of Consciousness: Alert Orientation: Yes Intact, Yes Orientated to Time, Yes Orientated to Place, Yes Orientated to Person - Impulse Control Impulse Control: Poor - Insight and Judgement Insight and Judgement: Impaired - Group Participation Particating in Group Activities: No - Medication Management Medication Management Adherence: Yes Assessment - Assessment Merits Inpatient Hospitalization: For Immediate Safety, For Stabilization Inpatient DSM-V Dx: F29 Clinical Impression: 48yo wm who presented to ED one week after discharge from [facility] due to paranoid delusions. Patient is medication compliant. He continues to exhibit ongoing impairing psychotic symptoms, needs continued inpatient treatment for stabilization. Plan - Plan Treatment Plan: Name: VIRY FRAUSTO JR Birthdate: 1970 [id number] continue acute intensive psychiatric treatment. continue q15min obs due to fall risk, may allow staff pass. convert to 2PC status. start invega sustenna today via initial dose of 234mg IM. obtain labs: BMP, CBC, TSH, free T4 referral to state pending. Continued Medication Management: Different Medication Medications: Current Medications Acetaminophen (Tylenol Tab*) 650 mg PO Q4H PRN PRN Reason: for pain; or Temp >101 F Al Hydrox/Mg Hydrox/Simethicone (Maalox Plus*) 30 ml PO Q4H PRN PRN Reason: INDIGESTION Clonazepam (Klonopin Tab(*)) 0.5 mg PO TID [facility] Last Admin: 09/06/18 08:14 Dose: 0.5 mg Device (Nicotine Mouth Piece*) 1 each INH ONCE PRN PRN Reason: CRAVING Ibuprofen (Advil Tab*) 200 mg PO Q4HR PRN PRN Reason: PAIN Last Admin: 09/04/18 10:48 Dose: 200 mg Levothyroxine Sodium (Synthroid Tab*) 150 mcg PO DAILY@0600 [facility] Last Admin: 09/06/18 08:14 Dose: 150 mcg Lorazepam (Ativan Tab(*)) 1 mg PO Q6H PRN PRN Reason: ANXIETY Nicotine (Nicotine Inhaler*) 10 mg INH Q2H PRN PRN Reason: CRAVING Nicotine (Nicotine Patch 21 Mg/24 Hr*) 1 patch TRANSDERM DAILY [facility] Last Admin: 09/06/18 08:13 Dose: Not Given Nicotine Polacrilex (Nicotine Gum*) 2 mg PO Q2H PRN PRN Reason: CRAVING Paliperidone (Invega Er Tab*) 12 mg PO BEDTIME [facility] Last Admin: 09/05/18 20:09 Dose: Not Given Paliperidone Palmitate (Invega Sustenna*) 234 mg IM ONCE ONE Stop: 09/06/18 10:10 Pharmacy Profile Note (Nicotine Patch Removal Note*) 1 note FOLLOW UP 2100 [facility] Last Admin: 09/05/18 21:13 Dose: Not Given Sertraline HCl (Zoloft*) 100 mg PO BID [facility] Last Admin: 09/06/18 08:13 Dose: 100 mg - Discharge Plan Discharge Plan: Consider Longer Term Tx
[2018-09-06 14:18] LABS: BUN/Creatinine Ratio 17.3 (8-20); Calcium 9.7 mg/dL (8.6-10.3); EGFR African American 123.6 (>60); EGFR Non-African American 102.1 (>60); Potassium 3.9 mmol/L (3.5-5.0)
[2018-09-06 14:42] LABS: TSH (Thyroid Stimulating Horm) 6.17 mcIU/mL (0.34-5.60)
[2018-09-06 14:44] LABS: Free T4 0.82 ng/dL (0.61-1.12)
[2018-09-06] MEDS: Nicotine Patch Removal NOTE FOLLOW UP SCH (21:19)
[2018-09-07] MEDS: Levothyroxine TAB* 150 MCG TAB PO SCH (07:34)
[2018-09-07] MEDS: Nicotine PATCH 21 MG/24 HR* PATCH TRANSDERM SCH (08:00)
[2018-09-07] MEDS: Sertraline* 100 MG TAB PO SCH ×2 (08:56→20:20)
[2018-09-07] MEDS: clonazePAM TAB(*) 1 MG PO SCH ×3 (08:56→20:20)
[2018-09-07] MEDS: Nicotine Patch Removal NOTE FOLLOW UP SCH (20:20)
[2018-09-08] MEDS: clonazePAM TAB(*) 1 MG PO SCH (08:19)
[2018-09-08] MEDS: Levothyroxine TAB* 150 MCG TAB PO SCH (08:20)
[2018-09-08] MEDS: Nicotine PATCH 21 MG/24 HR* PATCH TRANSDERM SCH ×2 (08:21→10:38)
[2018-09-08] MEDS: Sertraline* 100 MG TAB PO SCH ×2 (08:21→20:27)
[2018-09-08] MEDS: clonazePAM TAB(*) 0.5 MG PO SCH ×2 (14:07→20:47)
[2018-09-08] MEDS: Nicotine Patch Removal NOTE FOLLOW UP SCH (20:40)
[2018-09-09] MEDS: Levothyroxine TAB* 150 MCG TAB PO SCH (06:15)
[2018-09-09] MEDS: Nicotine PATCH 21 MG/24 HR* PATCH TRANSDERM SCH (07:00)
[2018-09-09] MEDS: Sertraline* 100 MG TAB PO SCH ×2 (07:00→20:53)
[2018-09-09] MEDS: clonazePAM TAB(*) 0.5 MG PO SCH ×3 (07:00→20:53)
--- NOTE | 2018-09-09 13:44 | PN ---
Subjective - Subjective Date of Service: 09/09/18 Service Type: [id number] Hosp care 15 min low complexity Subjective: Patient is seclusive to room, citing fear of exposing peers to radiation. He voices that he is waiting to be transferred to [facility] to have the radiation bomb removed. Patient is encouraged to participate in groups and exercise. Objective - Appearance Appearance: Well Developed/Nourished Dysmorphic Features: No Hygiene: Normal Grooming: Fairly Well Kept - Behavior Psychomotor Activities: Normal Exhibits Abnormal Movement: No - Attitude and Relatedness Attitude and Relatedness: Psychotically Related Eye Contact: Fair - Speech Quality: Unpressured Latencies: Short Quantity: Terse - Mood Patient's Decription of Mood: "Okay" - Affect Observed Affect: Good Affect Consistent with: Euthymia - Thought Process Patient's Thought Process: Disorganized, Impoverished Thought Content: Yes Paranoid Ideation, No Passive Wish, No Suicidal Planning, No Homicidal Ideation - Sensorium Experiencing Hallucinations: Yes Type of Hallucinations: Visual: No, Auditory: Yes, Command: No - Level of Consciousness Level of Consciousness: Alert Orientation: Yes Intact, Yes Orientated to Time, Yes Orientated to Place, Yes Orientated to Person - Impulse Control Impulse Control: Poor - Insight and Judgement Insight and Judgement: Impaired - Group Participation Particating in Group Activities: No - Medication Management Medication Management Adherence: Yes Assessment - Assessment Merits Inpatient Hospitalization: For Immediate Safety, For Stabilization, For Ongoing Evaluation Inpatient DSM-V Dx: F29 Clinical Impression: 48yo wm who presented to ED one week after discharge from [facility] due to paranoid delusions. Patient is medication compliant. He continues to exhibit ongoing impairing psychotic symptoms, needs continued inpatient treatment for stabilization. Plan - Plan Treatment Plan: Name: VIRY FRAUSTO JR Birthdate: 1970 [id number] continue acute intensive psychiatric treatment. continue q15min obs due to fall risk, may allow staff pass. second invega sustenna due 09/12/18 referral to state pending. Continued Medication Management: Different Medication Medications: Current Medications Acetaminophen (Tylenol Tab*) 650 mg PO Q4H PRN PRN Reason: for pain; or Temp >101 F Al Hydrox/Mg Hydrox/Simethicone (Maalox Plus*) 30 ml PO Q4H PRN PRN Reason: INDIGESTION Clonazepam (Klonopin Tab(*)) 0.25 mg PO TID [facility] Last Admin: 09/09/18 07:00 Dose: 0.25 mg Device (Nicotine Mouth Piece*) 1 each INH ONCE PRN PRN Reason: CRAVING Ibuprofen (Advil Tab*) 200 mg PO Q4HR PRN PRN Reason: PAIN Last Admin: 09/04/18 10:48 Dose: 200 mg Levothyroxine Sodium (Synthroid Tab*) 150 mcg PO DAILY@0600 [facility] Last Admin: 09/09/18 06:15 Dose: 150 mcg Lorazepam (Ativan Tab(*)) 1 mg PO Q6H PRN PRN Reason: ANXIETY Nicotine (Nicotine Inhaler*) 10 mg INH Q2H PRN PRN Reason: CRAVING Nicotine (Nicotine Patch 21 Mg/24 Hr*) 1 patch TRANSDERM DAILY [facility] Last Admin: 09/09/18 07:00 Dose: 1 patch Nicotine Polacrilex (Nicotine Gum*) 2 mg PO Q2H PRN PRN Reason: CRAVING Pharmacy Profile Note (Nicotine Patch Removal Note*) 1 note FOLLOW UP 2100 [facility] Last Admin: 09/08/18 20:40 Dose: 1 note Sertraline HCl (Zoloft*) 100 mg PO BID [facility] Last Admin: 09/09/18 07:00 Dose: 100 mg - Discharge Plan Discharge Plan: Consider Longer Term Tx
[2018-09-09] MEDS: Nicotine Patch Removal NOTE FOLLOW UP SCH (21:01)
[2018-09-10] MEDS: clonazePAM TAB(*) 0.5 MG PO SCH ×3 (08:00→21:58)
[2018-09-10] MEDS: Ibuprofen TAB* 200 MG PO PRN (08:01)
[2018-09-10] MEDS: Levothyroxine TAB* 150 MCG TAB PO SCH (08:01)
[2018-09-10] MEDS: Sertraline* 100 MG TAB PO SCH ×2 (08:02→21:59)
[2018-09-10] MEDS: Nicotine PATCH 21 MG/24 HR* PATCH TRANSDERM SCH (08:03)
[2018-09-10] MEDS: Nicotine Patch Removal NOTE FOLLOW UP SCH (21:58)
[2018-09-11] MEDS: Levothyroxine TAB* 150 MCG TAB PO SCH (10:04)
[2018-09-11] MEDS: clonazePAM TAB(*) 0.5 MG PO SCH ×3 (10:04→20:56)
[2018-09-11] MEDS: Sertraline* 100 MG TAB PO SCH ×2 (10:04→20:56)
[2018-09-11] MEDS: Nicotine PATCH 21 MG/24 HR* PATCH TRANSDERM SCH (10:06)
[2018-09-11] MEDS: Nicotine Patch Removal NOTE FOLLOW UP SCH (20:58)
[2018-09-12] MEDS: Nicotine PATCH 21 MG/24 HR* PATCH TRANSDERM SCH (07:40)
[2018-09-12] MEDS: Levothyroxine TAB* 150 MCG TAB PO SCH ×2 (07:40→07:58)
[2018-09-12] MEDS: Sertraline* 100 MG TAB PO SCH ×2 (07:59→20:53)
[2018-09-12] MEDS: clonazePAM TAB(*) 0.5 MG PO SCH ×3 (07:59→20:53)
--- NOTE | 2018-09-12 11:17 | PN ---
Subjective - Subjective Service Type: 95741 Hosp care 25 min moderate complexity Subjective: Patient observed ambulating with steady gait. He uses walker intermittently. Per staff, he was threatening and verbally aggressive to male peer/roommate. Patient tells me that this peer told him he was "going to bite my face off!" Patient continues to express concern that he will contaminate others with radiation. He initially refused second booster of Invega sustenna this morning. Objective - Appearance Appearance: Well Developed/Nourished Dysmorphic Features: No Hygiene: Normal Grooming: Fairly Well Kept - Behavior Psychomotor Activities: Normal Exhibits Abnormal Movement: No - Attitude and Relatedness Attitude and Relatedness: Irritable Eye Contact: Fair - Speech Quality: Unpressured Latencies: Normal Quantity: Terse - Mood Patient's Decription of Mood: "Good" - Affect Observed Affect: Expansive Affect Consistent with: Euphoria - Thought Process Patient's Thought Process: Disorganized, Impoverished Thought Content: Yes Paranoid Ideation, No Passive Wish, No Suicidal Planning, No Homicidal Ideation - Sensorium Experiencing Hallucinations: Yes Type of Hallucinations: Visual: Yes, Auditory: Yes, Command: No - Level of Consciousness Level of Consciousness: Alert Orientation: Yes Intact, Yes Orientated to Time, Yes Orientated to Place, Yes Orientated to Person - Impulse Control Impulse Control: Poor - Insight and Judgement Insight and Judgement: Impaired - Group Participation Particating in Group Activities: No - Medication Management Medication Management Adherence: Partial Assessment - Assessment Merits Inpatient Hospitalization: For Immediate Safety, For Stabilization, For Ongoing Evaluation, Consolidate Improvements Inpatient DSM-V Dx: F29 Clinical Impression: 48yo wm who presented to ED one week after discharge from [facility] due to paranoid delusions. Patient is medication compliant. He continues to exhibit ongoing impairing psychotic symptoms, needs continued inpatient treatment for stabilization. Plan - Plan Treatment Plan: Name: VIRY FRAUSTO JR Birthdate: 1970 [id number] continue acute intensive psychiatric treatment. may decrease to q30min, may allow staff pass per RN discretion. give second invega sustenna booster of 156mg IM today. continue other medications. referral to state pending. Continued Medication Management: Start Medication Medications: Current Medications Acetaminophen (Tylenol Tab*) 650 mg PO Q4H PRN PRN Reason: for pain; or Temp >101 F Al Hydrox/Mg Hydrox/Simethicone (Maalox Plus*) 30 ml PO Q4H PRN PRN Reason: INDIGESTION Clonazepam (Klonopin Tab(*)) 0.25 mg PO TID [facility] Last Admin: 09/12/18 07:59 Dose: 0.25 mg Device (Nicotine Mouth Piece*) 1 each INH ONCE PRN PRN Reason: CRAVING Ibuprofen (Advil Tab*) 200 mg PO Q4HR PRN PRN Reason: PAIN Last Admin: 09/10/18 08:01 Dose: 200 mg Levothyroxine Sodium (Synthroid Tab*) 150 mcg PO DAILY@0600 [facility] Last Admin: 09/12/18 07:58 Dose: 150 mcg Lorazepam (Ativan Tab(*)) 1 mg PO Q6H PRN PRN Reason: ANXIETY Nicotine (Nicotine Inhaler*) 10 mg INH Q2H PRN PRN Reason: CRAVING Nicotine (Nicotine Patch 21 Mg/24 Hr*) 1 patch TRANSDERM DAILY [facility] Last Admin: 09/12/18 07:40 Dose: Not Given Nicotine Polacrilex (Nicotine Gum*) 2 mg PO Q2H PRN PRN Reason: CRAVING Paliperidone Palmitate (Invega Sustenna*) 156 mg IM ONCE ONE Stop: 09/12/18 11:16 Pharmacy Profile Note (Nicotine Patch Removal Note*) 1 note FOLLOW UP 2100 [facility] Last Admin: 09/11/18 20:58 Dose: Not Given Sertraline HCl (Zoloft*) 100 mg PO BID [facility] Last Admin: 09/12/18 07:59 Dose: 100 mg - Discharge Plan Discharge Plan: Consider Longer Term Tx
[2018-09-12] MEDS: Paliperidone SUSTENNA* 156 MG/1 ML IM ONE (20:55)
[2018-09-12] MEDS: Nicotine Patch Removal NOTE FOLLOW UP SCH (20:59)
[2018-09-13] MEDS: Levothyroxine TAB* 150 MCG TAB PO SCH (08:54)
[2018-09-13] MEDS: Sertraline* 100 MG TAB PO SCH ×2 (08:54→21:55)
[2018-09-13] MEDS: clonazePAM TAB(*) 0.5 MG PO SCH ×3 (08:55→21:54)
[2018-09-13] MEDS: Nicotine PATCH 21 MG/24 HR* PATCH TRANSDERM SCH (08:56)
[2018-09-13] MEDS: Paliperidone SUSTENNA* 156 MG/1 ML IM ONE (10:45)
[2018-09-13] MEDS: Nicotine Patch Removal NOTE FOLLOW UP SCH (21:57)
[2018-09-14] MEDS: Levothyroxine TAB* 150 MCG TAB PO SCH (06:15)
[2018-09-14] MEDS: clonazePAM TAB(*) 0.5 MG PO SCH ×4 (06:15→20:18)
[2018-09-14] MEDS: Sertraline* 100 MG TAB PO SCH ×3 (06:15→20:19)
[2018-09-14] MEDS: Nicotine PATCH 21 MG/24 HR* PATCH TRANSDERM SCH (08:29)
--- NOTE | 2018-09-14 10:17 | PN ---
Subjective - Subjective Date of Service: 09/14/18 Service Type: 87030 Hosp care 25 min moderate complexity Subjective: Patient accepted second booster of Invega yesterday. He continues to remain seclusive except for meals. He endorses paranoid ideation which is impacting interactions with others. He is walking with steady gait and completing his own ADLs. Patient affect brightens when discussing his friend, Inocencia and her son, Zaire. Objective - Appearance Appearance: Well Developed/Nourished Dysmorphic Features: No Hygiene: Normal Grooming: Well Kept - Behavior Psychomotor Activities: Normal Exhibits Abnormal Movement: No - Attitude and Relatedness Attitude and Relatedness: Psychotically Related Eye Contact: Fair - Speech Quality: Unpressured Latencies: Normal Quantity: Appropriate - Mood Patient's Decription of Mood: "Okay" - Affect Observed Affect: Good Affect Consistent with: Euthymia - Thought Process Patient's Thought Process: Disorganized, Impoverished Thought Content: Yes Paranoid Ideation, No Passive Wish, No Suicidal Planning, No Homicidal Ideation - Sensorium Experiencing Hallucinations: Yes Type of Hallucinations: Visual: Yes, Auditory: Yes, Command: No - Level of Consciousness Level of Consciousness: Alert Orientation: Yes Intact, Yes Orientated to Time, Yes Orientated to Place, Yes Orientated to Person - Impulse Control Impulse Control: Poor - Insight and Judgement Insight and Judgement: Impaired - Group Participation Particating in Group Activities: No - Medication Management Medication Management Adherence: Yes Assessment - Assessment Merits Inpatient Hospitalization: For Immediate Safety, For Stabilization Inpatient DSM-V Dx: F29 Clinical Impression: 48yo wm who presented to ED one week after discharge from [facility] due to paranoid delusions. Patient is medication compliant. He continues to exhibit ongoing impairing psychotic symptoms, needs continued inpatient treatment for stabilization. Plan - Plan Treatment Plan: Name: VIRY FRAUSTO JR Birthdate: 1970 [id number] continue acute intensive psychiatric treatment. may decrease to q30min, may allow staff pass per RN discretion. given second invega sustenna booster of 156mg IM on 09/13/18. continue other medications. referral to state pending. Continued Medication Management: Different Medication Medications: Current Medications Acetaminophen (Tylenol Tab*) 650 mg PO Q4H PRN PRN Reason: for pain; or Temp >101 F Al Hydrox/Mg Hydrox/Simethicone (Maalox Plus*) 30 ml PO Q4H PRN PRN Reason: INDIGESTION Clonazepam (Klonopin Tab(*)) 0.25 mg PO TID [facility] Last Admin: 09/14/18 08:29 Dose: Not Given Device (Nicotine Mouth Piece*) 1 each INH ONCE PRN PRN Reason: CRAVING Ibuprofen (Advil Tab*) 200 mg PO Q4HR PRN PRN Reason: PAIN Last Admin: 09/10/18 08:01 Dose: 200 mg Levothyroxine Sodium (Synthroid Tab*) 150 mcg PO DAILY@0600 [facility] Last Admin: 09/14/18 06:15 Dose: 150 mcg Lorazepam (Ativan Tab(*)) 1 mg PO Q6H PRN PRN Reason: ANXIETY Nicotine (Nicotine Inhaler*) 10 mg INH Q2H PRN PRN Reason: CRAVING Nicotine (Nicotine Patch 21 Mg/24 Hr*) 1 patch TRANSDERM DAILY [facility] Last Admin: 09/14/18 08:29 Dose: Not Given Nicotine Polacrilex (Nicotine Gum*) 2 mg PO Q2H PRN PRN Reason: CRAVING Pharmacy Profile Note (Nicotine Patch Removal Note*) 1 note FOLLOW UP 2100 [facility] Last Admin: 09/13/18 21:57 Dose: Not Given Sertraline HCl (Zoloft*) 100 mg PO BID [facility] Last Admin: 09/14/18 08:29 Dose: Not Given - Discharge Plan Discharge Plan: Consider Longer Term Tx
[2018-09-14] MEDS: Nicotine Patch Removal NOTE FOLLOW UP SCH (21:21)
[2018-09-15] MEDS: Sertraline* 100 MG TAB PO SCH ×2 (07:44→20:32)
[2018-09-15] MEDS: clonazePAM TAB(*) 0.5 MG PO SCH ×3 (07:44→20:32)
[2018-09-15] MEDS: Levothyroxine TAB* 150 MCG TAB PO SCH (07:44)
[2018-09-15] MEDS: Ibuprofen TAB* 200 MG PO PRN (07:45)
[2018-09-15] MEDS: Nicotine PATCH 21 MG/24 HR* PATCH TRANSDERM SCH (07:46)
[2018-09-15] MEDS: Nicotine Patch Removal NOTE FOLLOW UP SCH (20:35)
[2018-09-16] MEDS: Levothyroxine TAB* 150 MCG TAB PO SCH (07:54)
[2018-09-16] MEDS: clonazePAM TAB(*) 0.5 MG PO SCH ×3 (09:59→20:25)
[2018-09-16] MEDS: Sertraline* 100 MG TAB PO SCH ×2 (10:00→20:25)
[2018-09-16] MEDS: Nicotine PATCH 21 MG/24 HR* PATCH TRANSDERM SCH (10:06)
--- NOTE | 2018-09-16 15:55 | PN ---
Subjective - Subjective Date of Service: 09/16/18 Service Type: 49315 Hosp care 15 min low complexity Subjective: Patient reports hearing the front desk supervisor of the hospital telling him that he has throat cancer. He continues to endorse delusion that he has a "needle bomb" in his shoulder. Despite multiple staff prompts, he avoids groups other than recreation group and meals. Objective - Appearance Appearance: Well Developed/Nourished Dysmorphic Features: No Hygiene: Normal Grooming: Fairly Well Kept - Behavior Psychomotor Activities: Normal Exhibits Abnormal Movement: No - Attitude and Relatedness Attitude and Relatedness: Psychotically Related Eye Contact: Fair - Speech Quality: Unpressured Latencies: Normal Quantity: Terse - Mood Patient's Decription of Mood: "Okay" - Affect Observed Affect: Constricted Affect Consistent with: Dysphoria - Thought Process Patient's Thought Process: Disorganized Thought Content: Yes Paranoid Ideation, No Passive Wish, No Suicidal Planning, No Homicidal Ideation - Sensorium Experiencing Hallucinations: Yes Type of Hallucinations: Visual: No, Auditory: Yes, Command: No - Level of Consciousness Level of Consciousness: Alert Orientation: Yes Intact, Yes Orientated to Time, Yes Orientated to Place, Yes Orientated to Person - Impulse Control Impulse Control: Poor - Insight and Judgement Insight and Judgement: Impaired - Group Participation Particating in Group Activities: No - Medication Management Medication Management Adherence: Yes Assessment - Assessment Merits Inpatient Hospitalization: For Immediate Safety, For Stabilization Inpatient DSM-V Dx: F29 Clinical Impression: 48yo wm who presented to ED one week after discharge from [facility] due to paranoid delusions. Patient is medication compliant and received both booster injections of Invega Sustenna. He continues to exhibit ongoing impairing psychotic symptoms, needs continued inpatient treatment for stabilization. Plan - Plan Treatment Plan: Name: VIRY FRAUSTO JR Birthdate: 1970 [id number] continue acute intensive psychiatric treatment. may decrease to q30min, may allow staff pass per RN discretion. given second invega sustenna booster of 156mg IM on 09/13/18. decrease scheduled clonazepam, may utilize prn lorazepam for increased anxiety. referral to state pending. Continued Medication Management: Different Medication Medications: Current Medications Acetaminophen (Tylenol Tab*) 650 mg PO Q4H PRN PRN Reason: for pain; or Temp >101 F Al Hydrox/Mg Hydrox/Simethicone (Maalox Plus*) 30 ml PO Q4H PRN PRN Reason: INDIGESTION Clonazepam (Klonopin Tab(*)) 0.25 mg PO TID [facility] Last Admin: 09/16/18 14:57 Dose: 0.25 mg Device (Nicotine Mouth Piece*) 1 each INH ONCE PRN PRN Reason: CRAVING Ibuprofen (Advil Tab*) 200 mg PO Q4HR PRN PRN Reason: PAIN Last Admin: 09/15/18 07:45 Dose: 200 mg Levothyroxine Sodium (Synthroid Tab*) 150 mcg PO DAILY@0600 [facility] Last Admin: 09/16/18 07:54 Dose: 150 mcg Lorazepam (Ativan Tab(*)) 1 mg PO Q6H PRN PRN Reason: ANXIETY Nicotine (Nicotine Inhaler*) 10 mg INH Q2H PRN PRN Reason: CRAVING Nicotine (Nicotine Patch 21 Mg/24 Hr*) 1 patch TRANSDERM DAILY [facility] Last Admin: 09/16/18 10:06 Dose: Not Given Nicotine Polacrilex (Nicotine Gum*) 2 mg PO Q2H PRN PRN Reason: CRAVING Pharmacy Profile Note (Nicotine Patch Removal Note*) 1 note FOLLOW UP 2100 [facility] Last Admin: 09/15/18 20:35 Dose: Not Given Sertraline HCl (Zoloft*) 100 mg PO BID [facility] Last Admin: 09/16/18 10:00 Dose: 100 mg - Discharge Plan Discharge Plan: Consider Longer Term Tx
[2018-09-16] MEDS: Nicotine Patch Removal NOTE FOLLOW UP SCH (20:26)
[2018-09-17] MEDS: Nicotine PATCH 21 MG/24 HR* PATCH TRANSDERM SCH (10:08)
[2018-09-17] MEDS: clonazePAM TAB(*) 0.5 MG PO SCH ×3 (10:08→21:28)
[2018-09-17] MEDS: Levothyroxine TAB* 150 MCG TAB PO SCH (10:08)
[2018-09-17] MEDS: Sertraline* 100 MG TAB PO SCH ×2 (10:09→21:28)
[2018-09-17] MEDS: Nicotine Patch Removal NOTE FOLLOW UP SCH (21:28)
[2018-09-18] MEDS: Levothyroxine TAB* 150 MCG TAB PO SCH (07:19)
[2018-09-18] MEDS: Nicotine PATCH 21 MG/24 HR* PATCH TRANSDERM SCH (07:20)
[2018-09-18] MEDS: Sertraline* 100 MG TAB PO SCH ×2 (11:03→20:47)
[2018-09-18] MEDS: clonazePAM TAB(*) 0.5 MG PO SCH ×3 (11:03→20:48)
[2018-09-18] MEDS: Nicotine Patch Removal NOTE FOLLOW UP SCH (20:23)
[2018-09-19] MEDS: Levothyroxine TAB* 150 MCG TAB PO SCH (10:07)
[2018-09-19] MEDS: Sertraline* 100 MG TAB PO SCH ×2 (10:07→20:21)
[2018-09-19] MEDS: clonazePAM TAB(*) 0.5 MG PO SCH ×2 (10:07→20:21)
[2018-09-19] MEDS: Ibuprofen TAB* 200 MG PO PRN (10:08)
[2018-09-19] MEDS: Nicotine PATCH 21 MG/24 HR* PATCH TRANSDERM SCH (10:09)
--- NOTE | 2018-09-19 14:19 | PN ---
Subjective - Subjective Date of Service: 09/19/18 Service Type: 14200 Hosp care 25 min moderate complexity Subjective: Patient completes MOCA with auto service writer and scores 20/30 with one point added for education level. He has difficulty with visuospatial tasks, predominately due to diplopia. Otherwise, cognitive tasks are tolerable for him. He is cooperative and appears to enjoy participating. He inquires about his friend, Inocencia, visiting. He states "they are trying to stop her from visiting. I have heard her at the door." Motorcycle Fabricator assures him that visitors are allowed per his consent. Objective - Appearance Appearance: Well Developed/Nourished Dysmorphic Features: No Hygiene: Normal Grooming: Fairly Well Kept - Behavior Psychomotor Activities: Normal Exhibits Abnormal Movement: No - Attitude and Relatedness Attitude and Relatedness: Psychotically Related Eye Contact: Poor - Speech Quality: Unpressured Latencies: Normal Quantity: Terse - Mood Patient's Decription of Mood: "Okay" - Affect Observed Affect: Constricted - Thought Process Patient's Thought Process: Disorganized, Impoverished Thought Content: Yes Paranoid Ideation, No Passive Wish, No Suicidal Planning, No Homicidal Ideation - Sensorium Experiencing Hallucinations: Yes Type of Hallucinations: Visual: Yes, Auditory: Yes, Command: No - Level of Consciousness Level of Consciousness: Alert Orientation: Yes Intact, Yes Orientated to Time, Yes Orientated to Place, Yes Orientated to Person - Impulse Control Impulse Control: Poor - Insight and Judgement Insight and Judgement: Impaired - Group Participation Particating in Group Activities: No - Medication Management Medication Management Adherence: Yes Assessment - Assessment Merits Inpatient Hospitalization: For Immediate Safety, For Stabilization Inpatient DSM-V Dx: F29 Clinical Impression: 48yo wm who presented to ED one week after discharge from [facility] due to paranoid delusions. Patient is medication compliant and received both booster injections of Invega Sustenna. He continues to exhibit ongoing impairing psychotic symptoms, needs continued inpatient treatment for stabilization. Plan - Plan Treatment Plan: Name: VIRY FRAUSTO JR Birthdate: 1970 [id number] continue acute intensive psychiatric treatment. may decrease to q30min, may allow staff pass per RN discretion. given second invega sustenna booster of 156mg IM on 09/13/18. decrease scheduled clonazepam, may utilize prn lorazepam for increased anxiety. referral to state pending. Continued Medication Management: Start Medication Medications: Current Medications Acetaminophen (Tylenol Tab*) 650 mg PO Q4H PRN PRN Reason: for pain; or Temp >101 F Al Hydrox/Mg Hydrox/Simethicone (Maalox Plus*) 30 ml PO Q4H PRN PRN Reason: INDIGESTION Clonazepam (Klonopin Tab(*)) 0.25 mg PO BID [facility] Device (Nicotine Mouth Piece*) 1 each INH ONCE PRN PRN Reason: CRAVING Ibuprofen (Advil Tab*) 200 mg PO Q4HR PRN PRN Reason: PAIN Last Admin: 09/19/18 10:08 Dose: 200 mg Levothyroxine Sodium (Synthroid Tab*) 150 mcg PO DAILY@0600 [facility] Last Admin: 09/19/18 10:07 Dose: 150 mcg Lorazepam (Ativan Tab(*)) 1 mg PO Q6H PRN PRN Reason: ANXIETY Nicotine (Nicotine Inhaler*) 10 mg INH Q2H PRN PRN Reason: CRAVING Nicotine Polacrilex (Nicotine Gum*) 2 mg PO Q2H PRN PRN Reason: CRAVING Sertraline HCl (Zoloft*) 100 mg PO BID [facility] Last Admin: 09/19/18 10:07 Dose: 100 mg - Discharge Plan Discharge Plan: Consider Longer Term Tx
[2018-09-20] MEDS: Levothyroxine TAB* 150 MCG TAB PO SCH (08:25)
[2018-09-20] MEDS: Sertraline* 100 MG TAB PO SCH ×2 (08:25→20:49)
[2018-09-20] MEDS: clonazePAM TAB(*) 0.5 MG PO SCH ×2 (08:25→20:50)
[2018-09-21] MEDS: Ibuprofen TAB* 200 MG PO PRN (04:02)
[2018-09-21] MEDS: Levothyroxine TAB* 150 MCG TAB PO SCH (04:02)
[2018-09-21] MEDS: Sertraline* 100 MG TAB PO SCH ×2 (10:05→21:41)
[2018-09-21] MEDS: clonazePAM TAB(*) 0.5 MG PO SCH ×2 (10:06→21:41)
[2018-09-22] MEDS: clonazePAM TAB(*) 0.5 MG PO SCH ×2 (07:32→21:46)
[2018-09-22] MEDS: Levothyroxine TAB* 150 MCG TAB PO SCH (07:32)
[2018-09-22] MEDS: Sertraline* 100 MG TAB PO SCH ×2 (07:32→21:46)
--- NOTE | 2018-09-22 08:21 | PN ---
Subjective - Subjective Date of Service: 09/22/18 Service Type: 37019 Hosp care 15 min low complexity Subjective: Patient continues to avoid interactions with peers but is participating in 1:1 activities with staff. He continues to respond to internal stimuli. He is ambulating steady, using rolling walker at times. He inquires about when he will be transferred to [facility]. Tar Pot Worker spoke with Lesia Shaffer, java software of [employer]. She requested repeat fax of referral as she has yet to see it. Assessment - Assessment Merits Inpatient Hospitalization: For Immediate Safety, For Stabilization, For Ongoing Evaluation, Pending Safe DC Plan Inpatient DSM-V Dx: F29 Clinical Impression: 48yo wm who presented to ED one week after discharge from [facility] due to paranoid delusions. Patient is medication compliant and received both booster injections of Invega Sustenna. He continues to exhibit ongoing impairing psychotic symptoms, needs continued inpatient treatment for stabilization. Plan - Plan Treatment Plan: Name: VIRY FRAUSTO JR Birthdate: 1970 [id number] continue acute intensive psychiatric treatment. may decrease to q30min, may allow staff pass per RN discretion. given second invega sustenna booster of 156mg IM on 09/13/18. continue titration of clonazepam, may utilize prn lorazepam for increased anxiety. referral to on license of [facility] pending. Medications: Current Medications Acetaminophen (Tylenol Tab*) 650 mg PO Q4H PRN PRN Reason: for pain; or Temp >101 F Al Hydrox/Mg Hydrox/Simethicone (Maalox Plus*) 30 ml PO Q4H PRN PRN Reason: INDIGESTION Clonazepam (Klonopin Tab(*)) 0.25 mg PO BID [facility] Last Admin: 09/22/18 07:32 Dose: 0.25 mg Device (Nicotine Mouth Piece*) 1 each INH ONCE PRN PRN Reason: CRAVING Ibuprofen (Advil Tab*) 200 mg PO Q4HR PRN PRN Reason: PAIN Last Admin: 09/21/18 04:02 Dose: 200 mg Levothyroxine Sodium (Synthroid Tab*) 150 mcg PO DAILY@0600 [facility] Last Admin: 09/22/18 07:32 Dose: 150 mcg Lorazepam (Ativan Tab(*)) 1 mg PO Q6H PRN PRN Reason: ANXIETY Nicotine (Nicotine Inhaler*) 10 mg INH Q2H PRN PRN Reason: CRAVING Nicotine Polacrilex (Nicotine Gum*) 2 mg PO Q2H PRN PRN Reason: CRAVING Sertraline HCl (Zoloft*) 100 mg PO BID [facility] Last Admin: 09/22/18 07:32 Dose: 100 mg - Discharge Plan Discharge Plan: Consider Longer Term Tx
[2018-09-22] MEDS: Ibuprofen TAB* 200 MG PO PRN (17:47)
[2018-09-23] MEDS: clonazePAM TAB(*) 0.5 MG PO SCH ×2 (09:15→20:47)
[2018-09-23] MEDS: Levothyroxine TAB* 150 MCG TAB PO SCH (09:16)
[2018-09-23] MEDS: Sertraline* 100 MG TAB PO SCH ×2 (09:16→20:46)
--- NOTE | 2018-09-23 12:01 | PN ---
Subjective - Subjective Date of Service: 09/23/18 Service Type: 59354 Hosp care 15 min low complexity Subjective: Wood Heel Flap Rubber spoke with Betty of [facility]- states Lesia Shaffer is not available today due to client yesterday. Betty asked that I call on wednesday morning. She verifies that referral fax was received. Patient declines to perform ADLs today due to delusion that he is having surgery. Patient refuses clozapine treatment at this time. Objective - Appearance Appearance: Well Developed/Nourished Dysmorphic Features: Yes Hygiene: Dirty Grooming: Disheveled - Behavior Psychomotor Activities: Normal Exhibits Abnormal Movement: No - Attitude and Relatedness Attitude and Relatedness: Psychotically Related Eye Contact: Poor - Speech Quality: Unpressured Latencies: Normal Quantity: Terse - Mood Patient's Decription of Mood: "Okay" - Affect Observed Affect: Unvariable Affect Consistent with: Dysphoria - Thought Process Patient's Thought Process: Circumstantial, Impoverished Thought Content: Yes Paranoid Ideation, No Passive Wish, No Suicidal Planning, No Homicidal Ideation - Sensorium Experiencing Hallucinations: Yes Type of Hallucinations: Visual: Yes, Auditory: Yes, Command: No - Level of Consciousness Level of Consciousness: Alert Orientation: Yes Intact, Yes Orientated to Time, Yes Orientated to Place, Yes Orientated to Person - Impulse Control Impulse Control: Impaired - Insight and Judgement Insight and Judgement: Impaired - Group Participation Particating in Group Activities: No - Medication Management Medication Management Adherence: Yes Assessment - Assessment Merits Inpatient Hospitalization: For Immediate Safety, For Stabilization Inpatient DSM-V Dx: F29 Clinical Impression: 48yo wm who presented to ED one week after discharge from [facility] due to paranoid delusions. Patient is medication compliant and received both booster injections of Invega Sustenna. He continues to exhibit ongoing impairing psychotic symptoms, needs continued inpatient treatment for stabilization. Plan - Plan Treatment Plan: Name: VIRY FRAUSTO JR Birthdate: 1970 [id number] continue acute intensive psychiatric treatment. may decrease to q30min, may allow staff pass per RN discretion. given second invega sustenna booster of 156mg IM on 09/13/18. continue taper of clonazepam, may utilize prn lorazepam for increased anxiety. accepted to [facility], awaiting bed assignment. Continued Medication Management: Consider Medication - clozapine Medications: Current Medications Acetaminophen (Tylenol Tab*) 650 mg PO Q4H PRN PRN Reason: for pain; or Temp >101 F Al Hydrox/Mg Hydrox/Simethicone (Maalox Plus*) 30 ml PO Q4H PRN PRN Reason: INDIGESTION Clonazepam (Klonopin Tab(*)) 0.25 mg PO BID [facility] Last Admin: 09/23/18 09:15 Dose: 0.25 mg Device (Nicotine Mouth Piece*) 1 each INH ONCE PRN PRN Reason: CRAVING Ibuprofen (Advil Tab*) 200 mg PO Q4HR PRN PRN Reason: PAIN Last Admin: 09/22/18 17:47 Dose: 200 mg Levothyroxine Sodium (Synthroid Tab*) 150 mcg PO DAILY@0600 [facility] Last Admin: 09/23/18 09:16 Dose: 150 mcg Lorazepam (Ativan Tab(*)) 1 mg PO Q6H PRN PRN Reason: ANXIETY Nicotine (Nicotine Inhaler*) 10 mg INH Q2H PRN PRN Reason: CRAVING Nicotine Polacrilex (Nicotine Gum*) 2 mg PO Q2H PRN PRN Reason: CRAVING Sertraline HCl (Zoloft*) 100 mg PO BID [facility] Last Admin: 09/23/18 09:16 Dose: 100 mg - Discharge Plan Discharge Plan: Consider Longer Term Tx
[2018-09-23] MEDS: Ibuprofen TAB* 200 MG PO PRN (18:59)
[2018-09-24] MEDS: clonazePAM TAB(*) 0.5 MG PO SCH ×2 (08:17→20:30)
[2018-09-24] MEDS: Levothyroxine TAB* 150 MCG TAB PO SCH (08:17)
[2018-09-24] MEDS: Sertraline* 100 MG TAB PO SCH ×2 (08:17→20:30)
[2018-09-24] MEDS: Ibuprofen TAB* 200 MG PO PRN (08:18)
[2018-09-25] MEDS: Ibuprofen TAB* 200 MG PO PRN ×2 (03:42→19:55)
[2018-09-25] MEDS: Levothyroxine TAB* 150 MCG TAB PO SCH ×2 (03:42→12:46)
[2018-09-25] MEDS: Sertraline* 100 MG TAB PO SCH ×2 (12:45→19:53)
[2018-09-25] MEDS: clonazePAM TAB(*) 0.5 MG PO SCH ×2 (12:45→19:53)
[2018-09-26] MEDS: Levothyroxine TAB* 150 MCG TAB PO SCH (07:36)
[2018-09-26] MEDS: Sertraline* 100 MG TAB PO SCH ×2 (09:17→20:43)
[2018-09-26] MEDS: clonazePAM TAB(*) 0.5 MG PO SCH ×2 (09:17→20:42)
[2018-09-26] MEDS: Ibuprofen TAB* 200 MG PO PRN ×2 (09:17→20:50)
--- NOTE | 2018-09-26 15:06 | PN ---
Subjective - Subjective Date of Service: 09/26/18 Service Type: 93040 Hosp care 15 min low complexity Subjective: Patient lying down upon approach. He reports needing a nap due to recent activity on unit (recreation group). He is informed of likely bed availability at [facility] this week. Per staff, patient is seclusive with the exception of some meals and select groups. He endorses paranoia, denies internal stimuli but is observed responding to such. Washery Boss left message with Lesia Shaffer to inquire about status of referral. Objective - Appearance Appearance: Well Developed/Nourished Dysmorphic Features: Yes Hygiene: Normal Grooming: Fairly Well Kept - Behavior Psychomotor Activities: Normal Exhibits Abnormal Movement: No - Attitude and Relatedness Attitude and Relatedness: Withdrawn Eye Contact: Poor - Speech Quality: Unpressured Latencies: Normal Quantity: Terse - Mood Patient's Decription of Mood: "Anxious" - Affect Observed Affect: Good Affect Consistent with: Euthymia - Thought Process Thought Content: Yes Paranoid Ideation, No Passive Wish, No Suicidal Planning, No Homicidal Ideation - Sensorium Experiencing Hallucinations: No, Sensorium is Clear Type of Hallucinations: Visual: No, Auditory: No, Command: No - Level of Consciousness Level of Consciousness: Alert Orientation: Yes Intact, Yes Orientated to Time, Yes Orientated to Place, Yes Orientated to Person - Impulse Control Impulse Control: Poor - Insight and Judgement Insight and Judgement: Poor - Group Participation Particating in Group Activities: No - Medication Management Medication Management Adherence: Yes Assessment - Assessment Merits Inpatient Hospitalization: For Immediate Safety, For Stabilization, Pending Safe DC Plan Inpatient DSM-V Dx: F29 Clinical Impression: 48yo wm who presented to ED one week after discharge from [facility] due to paranoid delusions. Patient is medication compliant and received both booster injections of Invega Sustenna. He continues to exhibit ongoing impairing psychotic symptoms, needs continued inpatient treatment for stabilization. Plan - Plan Treatment Plan: Name: VIRY FRAUSTO JR Birthdate: 1970 [id number] continue acute intensive psychiatric treatment. may decrease to q30min, may allow staff pass per RN discretion. given second invega sustenna booster of 156mg IM on 09/13/18. continue scheduled clonazepam, may utilize prn lorazepam for increased anxiety. accepted to [facility], awaiting bed assignment. Continued Medication Management: Different Medication Medications: Current Medications Acetaminophen (Tylenol Tab*) 650 mg PO Q4H PRN PRN Reason: for pain; or Temp >101 F Al Hydrox/Mg Hydrox/Simethicone (Maalox Plus*) 30 ml PO Q4H PRN PRN Reason: INDIGESTION Clonazepam (Klonopin Tab(*)) 0.25 mg PO BID [facility] Last Admin: 09/26/18 09:17 Dose: 0.25 mg Device (Nicotine Mouth Piece*) 1 each INH ONCE PRN PRN Reason: CRAVING Ibuprofen (Advil Tab*) 200 mg PO Q4HR PRN PRN Reason: PAIN Last Admin: 09/26/18 09:17 Dose: 200 mg Levothyroxine Sodium (Synthroid Tab*) 150 mcg PO DAILY@0600 [facility] Last Admin: 09/26/18 07:36 Dose: 150 mcg Lorazepam (Ativan Tab(*)) 1 mg PO Q6H PRN PRN Reason: ANXIETY Nicotine (Nicotine Inhaler*) 10 mg INH Q2H PRN PRN Reason: CRAVING Nicotine Polacrilex (Nicotine Gum*) 2 mg PO Q2H PRN PRN Reason: CRAVING Sertraline HCl (Zoloft*) 100 mg PO BID [facility] Last Admin: 09/26/18 09:17 Dose: 100 mg - Discharge Plan Discharge Plan: Inpatient Hospitalization
[2018-09-27] MEDS: Levothyroxine TAB* 150 MCG TAB PO SCH (07:01)
[2018-09-27] MEDS: clonazePAM TAB(*) 0.5 MG PO SCH ×2 (08:55→19:41)
[2018-09-27] MEDS: Sertraline* 100 MG TAB PO SCH ×2 (08:56→19:42)
[2018-09-27] MEDS: Ibuprofen TAB* 200 MG PO PRN (08:57)
[2018-09-28] MEDS: Ibuprofen TAB* 200 MG PO PRN (01:18)
[2018-09-28] MEDS: Levothyroxine TAB* 150 MCG TAB PO SCH (08:46)
[2018-09-28] MEDS: Sertraline* 100 MG TAB PO SCH ×2 (08:46→20:05)
[2018-09-28] MEDS: clonazePAM TAB(*) 0.5 MG PO SCH ×2 (08:46→20:05)
--- NOTE | 2018-09-28 10:14 | PN ---
Subjective - Subjective Date of Service: 09/28/18 Service Type: 26294 Hosp care 15 min low complexity Subjective: Viry is notified of pending transfer to [facility] tomorrow. He reports understanding and endorses mild nervousness. Per staff, he continues to endorse delusion of having a bomb inside him. [employer] Architect[employer] Firm notified his HCP, Inocencia. She is unable to visit today and plans to obtain his extra belongings from the unit this weekend. Objective - Appearance Appearance: Well Developed/Nourished Dysmorphic Features: Yes Hygiene: Dirty Grooming: Disheveled - Behavior Psychomotor Activities: Normal Exhibits Abnormal Movement: No - Attitude and Relatedness Attitude and Relatedness: Cooperative Eye Contact: Fair - Speech Quality: Unpressured Latencies: Normal Quantity: Terse - Mood Patient's Decription of Mood: "a little worried" - Affect Observed Affect: Depressed Affect Consistent with: Dysphoria - Thought Process Patient's Thought Process: Impoverished Thought Content: Yes Paranoid Ideation, No Passive Wish, No Suicidal Planning, No Homicidal Ideation - Sensorium Experiencing Hallucinations: No, Sensorium is Clear - denies Type of Hallucinations: Visual: No, Auditory: No, Command: No - Level of Consciousness Level of Consciousness: Alert Orientation: Yes Intact, Yes Orientated to Time, Yes Orientated to Place, Yes Orientated to Person - Impulse Control Impulse Control: Intact - Insight and Judgement Insight and Judgement: Impaired - Group Participation Particating in Group Activities: No - Medication Management Medication Management Adherence: Yes Assessment - Assessment Inpatient DSM-V Dx: F29 Clinical Impression: 48yo wm who presented to ED one week after discharge from [facility] due to paranoid delusions. Patient is medication compliant and received both booster injections of Invega Sustenna. He continues to exhibit ongoing impairing psychotic symptoms, needs continued inpatient treatment for stabilization. Plan - Plan Treatment Plan: Name: VIRY FRAUSTO JR Birthdate: 1970 [id number] continue acute intensive psychiatric treatment. may decrease to q30min, may allow staff pass per RN discretion. given second invega sustenna booster of 156mg IM on 09/13/18. continue scheduled clonazepam, may utilize prn lorazepam for increased anxiety. accepted to [facility], pending transfer 09/29/18. Continued Medication Management: Consider Medication Medications: Current Medications Acetaminophen (Tylenol Tab*) 650 mg PO Q4H PRN PRN Reason: for pain; or Temp >101 F Al Hydrox/Mg Hydrox/Simethicone (Maalox Plus*) 30 ml PO Q4H PRN PRN Reason: INDIGESTION Clonazepam (Klonopin Tab(*)) 0.25 mg PO BID [facility] Last Admin: 09/28/18 08:46 Dose: 0.25 mg Device (Nicotine Mouth Piece*) 1 each INH ONCE PRN PRN Reason: CRAVING Ibuprofen (Advil Tab*) 200 mg PO Q4HR PRN PRN Reason: PAIN Last Admin: 09/28/18 01:18 Dose: 200 mg Levothyroxine Sodium (Synthroid Tab*) 150 mcg PO DAILY@0600 [facility] Last Admin: 09/28/18 08:46 Dose: 150 mcg Lorazepam (Ativan Tab(*)) 1 mg PO Q6H PRN PRN Reason: ANXIETY Nicotine (Nicotine Inhaler*) 10 mg INH Q2H PRN PRN Reason: CRAVING Nicotine Polacrilex (Nicotine Gum*) 2 mg PO Q2H PRN PRN Reason: CRAVING Sertraline HCl (Zoloft*) 100 mg PO BID [facility] Last Admin: 09/28/18 08:46 Dose: 100 mg - Discharge Plan Discharge Plan: Consider Longer Term Tx
[2018-09-29 07:57] VITALS: BP 122/75
[2018-09-29] MEDS: Sertraline* 100 MG TAB PO SCH (08:40)
[2018-09-29] MEDS: Levothyroxine TAB* 150 MCG TAB PO SCH (08:40)
[2018-09-29] MEDS: clonazePAM TAB(*) 0.5 MG PO SCH (08:40)
[2018-09-29] MEDS: Ibuprofen TAB* 200 MG PO PRN (08:50)
--- NOTE | 2018-10-03 13:16 | DS ---
Subjective - Subjective Service Types: 01250 Hosp DC Day Mgmt complex over 30 min Discharge Date: 09/29/18 Subjective: Patient stated understanding of transfer to [facility] today. He was pleasant and cooperative with preparations. He continues to endorse delusions. Objective - Appearance Appearance: Well Developed/Nourished Dysmorphic Features: No Hygiene: Dirty Grooming: Fairly Well Kept - Behavior Psychomotor Activities: Normal Exhibits Abnormal Movement: No - Attitude and Relatedness Attitude and Relatedness: Psychotically Related Eye Contact: Poor - Speech Quality: Unpressured Latencies: Short Quantity: Terse - Mood Patient's Decription of Mood: "Okay" - Affect Observed Affect: Good Affect Consistent with: Euthymia - Thought Process Patient's Thought Process: Loose Associations, Impoverished Thought Content: Yes Paranoid Ideation, No Passive Wish, No Suicidal Planning, No Homicidal Ideation - Sensorium Experiencing Hallucinations: No, Sensorium is Clear - denies Type of Hallucinations: Visual: No, Auditory: No, Command: No - Level of Consciousness Level of Consciousness: Alert Orientation: Yes Intact, Yes Orientated to Time, Yes Orientated to Place, Yes Orientated to Person - Impulse Control Impulse Control: Poor - Insight and Judgement Insight and Judgement: Impaired - Group Participation Particating in Group Activities: No - Medication Management Medication Management Adherence: Yes Treatment Course & Assessment Clinical Course & Impression: 08/22/18: Per admitting physician: This 48 y/o male was brought into the [facility] ED by law enforcement due to acute mental status change and he was complaining that his neighbors have been trying to cut into his house by a chainsaw and he was extremely fearful. This patient has a h/o brain cancer (not confirmed by evidence ). However, he was distressed with the paranoia and we decided to admit him to [facility] for his safety, diagnostic clarification and stabilization of acute symptoms. HPI: Rick is a 48yo wm, domiciled, disabled with a history of lung cancer with mets to the brain. During last hospitalization from 08/04-08/15/18, it was verified that he is in remission and no longer receiving oncology treatment. The patient presented to the ED approximately 1 week after discharge with reports of neighbors trying to kill him, and other delusional statemnts. The patient reports a remote history of agoraphobia for many years. When we met him last month, he had been [facility]. Prior to that, he was living with his sister, Iliana, but was asked to leave due to his violent and threatening behaviors. He continues to assert delusions that his sister is on the radio and telling him that all of his belongings have been taken from his apartment. He tells me that the ER was using him "as a science experiment" and goes on to describe tainted water. He states that he was given a needle bomb and palpates his left side. He does not find anything significant and states that it must have been absorbed by the radiation. The patient was a poor historian during the last hospitalization and continues to be. 1.23 patient reports staying in his room to avoid his sister, Iliana. He states he could hear that she is here and does not want to talk to her. There is no evidence that she visited. Patient is observed to respond to internal stimuli alone in his room. Noted to have ataxic gait. He agrees to MRI of brain. 1.24 Patient is primarily seclusive. He is overheard yelling at his sister, Iliana, who is not present. Patient refused first dose of risperidone but has since been adherent. He was cooperative with MRI. [employer] left message with oncologist, Dr Minor to discuss current presentation. He is out of the office until tomorrow. 1.25 Patient yelling while lying in bed. He reports there is a man on the floor above his room who is threatening him with a grenade and trying to coerce security guards. Patient goes on to say that he now has proof in regards to his mental telepathy. He also states that he spoke with police [here] last evening and found out that his belongings have all been recovered from his sister's home. 1.27 "I am still here!" Rick remains seclusive to his room, found in bed, remains grossly delusional "I have a bomb in my chest!" He denies A/VH or SI/HI or side effects from prescribed meds. 1.28 Rick "Bugs" continues to endorse hallucinations of his sister being present on the unit. He reports having a "radiation bomb" in his body that is being absorbed. He gives radio news writer permission to discuss treatment planning with Inocencia, his friend and health care proxy. [employer] phones Inocencia at [phone]. Inocencia's email: [email or web address] She reports Rick has always been a concrete thinker with rigid ideas. She states he has been trying to mask psychotic symptoms moreso in the past year. She states he has grandiose ideas of living with her or having a trailer on her property but that she is not able to provide these. Also, [facility] are no longer accepting him as a client. She states she is planning to be in [place] tomorrow and can meet with providers and patient. 1.30 Patient gait is unstable and he attempts to ambulate independently. He is noted to have difficulty initiating steps, particularly with his right leg. Patient's friend, Inocencia, present for treatment planning. She is noted to be supportive and patient is receptive to her suggestions. During meeting patient reports he can read minds of various people, that his heart has "stims" and these are making it bleed. He refers to a "ticking radiation bomb" in his throat. He states that his sister and Hunter were present on the unit this morning. 2.1 Patient sleeping upon approach. Per staff, he has been irritable and demanding to allowed to leave. He states we are preventing him from surgery to remove the "radiation bomb" in his body. [employer] corresponded with his HCP, Inocencia to update on status and treatment planning. Patient agrees to referral to [facility] in [place], phone [phone]. We discussed waiting to place referral until patient is psychiatric and medically stabilized. Rick allows radio news writer to give his apartment kennedy to Inocencia. 2.4 Patient voices need for surgery to have "needle bomb" removed from his chest. We discuss need for continued stabilization and referral to [facility]. Patient stated agreement and spoke with LS to give clearance for referral. Patient encouraged to utilize walker moreso than wheelchair to improve strength. Also encouraged to be cautious to prevent falls. Per staff, patient is observed to respond to internal stimuli but justifies behavior. 2.5 Patient states his mood is "good" and continues to agree to [facility] referral. He states he was told he will be transferred tomorrow. Informed that a referral is being sent but that it could be 1-2 weeks for a bed available. Patient encouraged to utilize walker moreso than wheelchair. start invega sustenna today, initial dose of 234mg IM. 2.8 Patient is seclusive to room, citing fear of exposing peers to radiation. He voices that he is waiting to be transferred to the [facility] to have the radiation bomb removed. Patient is encouraged to participate in groups and exercise. 2.11 Patient observed ambulating with steady gait. He uses walker intermittently. Per staff, he was threatening and verbally aggressive to male peer/roommate. Patient tells me that this peer told him he was "going to bite my face off!" Patient continues to express concern that he will contaminate others with radiation. He initially refused second booster of Invega sustenna this morning citing pain and lack of need. He was agreeable after discussing risks/benefits with radio news writer. Second booster of Invega sustenna 156mg IM given. 2.13 Patient accepted second booster of Invega yesterday after discussing risks/ benefits with radio news writer. He continues to remain seclusive except for meals. He endorses paranoid ideation which is impacting interactions with others. He is walking with steady gait and completing his own ADLs. Patient affect brightens when discussing his friend, Inocencia and her son, Zaire. 2.15 Patient reports hearing the front worker of the hospital telling him that he has throat cancer. He continues to endorse delusion that he has a "needle bomb " in his shoulder. Despite multiple staff prompts, he avoids groups other than recreation group and meals, likely due to paranoia. 2.18 Patient completes MOCA with radio news writer and scores 20/30 with one point added for education level. He has difficulty with visuospatial tasks, predominately due to diplopia. Otherwise, cognitive tasks are tolerable for him. He is cooperative and appears to enjoy participating. He inquires about his friend, Inocencia, visiting. He states "they are trying to stop her from visiting. I have heard her at the door." [employer] assures him that visitors are allowed per his consent. 2.21 Patient continues to avoid interactions with peers but is participating in 1:1 activities with staff. He continues to respond to internal stimuli. He is ambulating steady, using rolling walker at times. He inquires about when he will be transferred to [facility]. [employer] spoke with Lesia Shaffer, elevator technician of [facility] at [phone]. [address] [place] [address] She requested repeat fax of referral as she has yet to see it. Referral was faxed via [employer] in the same manner to [phone]. 2.22 [employer] spoke with Betty of [facility]- states Lesia Shaffer is not available today due to client yesterday. Betty asked that I call on wednesday morning. She verifies that referral fax was received. Patient declines to perform ADLs today due to delusion that he is having surgery. Patient refuses clozapine treatment at this time. 2.25 Patient lying down upon approach. He reports needing a nap due to recent activity on unit (recreation group). He is informed of likely bed availability at [facility] this week. Per staff, patient is seclusive with the exception of some meals and select groups. He endorses paranoia, denies internal stimuli but is observed responding to such. [employer] left message with Lesia [facility] to inquire about status of referral. I met with Rick today to discuss questions from [facility] pertaining to recommendations to trial clozaril and to explore ECT. I explained rationale for each per [facility], and the goal of exploring all treatment options to assist with alleviating some of his persisting symptoms. From our conversation he agreed to think about both options, understanding the goal of helping him feel better. He agreed to take some information about ECT and that we could discuss this further so that he had time to process and explore this. Of note we had this discussion while he was walking around the unit and with mimimal prompting he agreed to attend group. 2.27 Rick is notified of pending transfer to [facility] tomorrow. He reports understanding and endorses mild nervousness. Per staff, he continues to endorse delusion of having a bomb inside him. [employer] notified his HCP, Inocencia. She is unable to visit today and plans to obtain his extra belongings from the unit this weekend. Merits Inpatient Hospitalization: Yes Clear for Discharge: Other - transfer to state facility Inpatient DSM-V Dx: F29 Discharge Planning - Discharge Planning Discharge Plan: Consider Longer Term Tx - accepted to [facility]: [facility] Recommendations for Continuing Care: Medication Management, Routine Metabolic Monitoring, Therapeutic Drug Levels, Primary Care Followup, Specialty Followup Medications: Acetaminophen (Tylenol Tab*) 650 mg PO Q4H PRN PRN Reason: for pain; or Temp >101 F Al Hydrox/Mg Hydrox/Simethicone (Maalox Plus*) 30 ml PO Q4H PRN PRN Reason: INDIGESTION Clonazepam (Klonopin Tab(*)) 0.25 mg PO BID [facility] Last Admin: 09/28/18 08:46 Dose: 0.25 mg Device (Nicotine Mouth Piece*) 1 each INH ONCE PRN PRN Reason: CRAVING Ibuprofen (Advil Tab*) 200 mg PO Q4HR PRN PRN Reason: PAIN Last Admin: 09/28/18 01:18 Dose: 200 mg Levothyroxine Sodium (Synthroid Tab*) 150 mcg PO DAILY@0600 [facility] Last Admin: 09/28/18 08:46 Dose: 150 mcg Lorazepam (Ativan Tab(*)) 1 mg PO Q6H PRN PRN Reason: ANXIETY Nicotine (Nicotine Inhaler*) 10 mg INH Q2H PRN PRN Reason: CRAVING Nicotine Polacrilex (Nicotine Gum*) 2 mg PO Q2H PRN PRN Reason: CRAVING Sertraline HCl (Zoloft*) 100 mg PO BID [facility] Last Admin: 09/28/18 08:46 Dose: 100 mg Invega Sustenna #2 booster of 156mg IM given on 09/12/18 Discharge Planning: Prescriptions provided for discharge [x] Yes [] No Follow up care details as per social work arrangements. Patient response to discharge plan: [] eager for discharge [x] agreeable with discharge plan [] ambivalent about discharge [] disagrees with discharge today
== END 2018-09-29 11:45 | DRG 760 ==
LOC: ED 16:11 → BSU 08-22 15:19
PROVIDERS: ADMIT Internal Medicine; ATTEND Psychiatry & Neurology Psychiatry
PROC: GZHZZZZ Group Psychotherapy (ICD-10-PCS; principal; 2018-08-31)
DX: F22 Delusional disorders (principal); I10 Essential (primary) hypertension; F32.9 Major depressive disorder, single episode, unspecified; J45.909 Unspecified asthma, uncomplicated; K64.9 Unspecified hemorrhoids; H53.2 Diplopia; F17.210 Nicotine dependence, cigarettes, uncomplicated; E03.9 Hypothyroidism, unspecified; F41.1 Generalized anxiety disorder; F40.00 Agoraphobia, unspecified; Z80.0 Family history of malignant neoplasm of digestive organs; Z80.1 Family history of malignant neoplasm of trachea, bronchus and lung; Z83.2 Family history of diseases of the blood and blood-forming organs and certain disorders involving the immune mechanism; Z91.410 Personal history of adult physical and sexual abuse; Z91.018 Allergy to other foods; Z85.841 Personal history of malignant neoplasm of brain; Z85.118 Personal history of other malignant neoplasm of bronchus and lung
CPT/HCPCS: 36415; 70450; 70551; 80048; 80053; 80307; 80320; 80329; 81003; 81015; 83605; 84439; 84443; 85025; 87040; 87086; 90853; 93005; 99222; 99231; 99232; 99233; 99238; 99284; A9270-GY; G0480; G8978-GP-CL; G8979-GP-CI; J2426